=== PATIENT | male | born 1945 | race Caucasian/White ===

== ENCOUNTER 2023-03-10 11:10 | Inpatient (IN) | payer MEDICARE, SELFPAY ==
[2023-03-10] VITALS (11 sets, daily range): BP systolic 110–168; BP diastolic 53–98; PULSE 60–105; RESP 18–32; TEMP 35.9–37.8; O2SAT 92–96; BMI 36.4; BMI 35.5
--- NOTE | 2023-03-10 11:30 | ED.RN ---
PT AND BROTHER ARE VERY POOR HISTORIANS, UNABLE TO STATES PT'S PAST MEDICAL HISTORY OR MEDICATIONS.
--- NOTE | 2023-03-10 11:32 | EKG12_ITS ---
Test Reason : SOB Blood Pressure : / mmHG Vent. Rate : 094 BPM Atrial Rate : 000 BPM P-R Int : 000 ms QRS Dur : 160 ms QT Int : 408 ms P-R-T Axes : 000 -85 060 degrees QTc Int : 510 ms Atrial fibrillation with premature ventricular or aberrantly conducted complexes Left axis deviation Right bundle branch block Left ventricular hypertrophy with repolarization abnormality ( R in aVL ) Inferior infarct , age undetermined Anterolateral infarct , age undetermined Abnormal ECG Confirmed by EDWARD GENTILE, GORDON ([id number]), editor school photograph LUIS ENRIQUE RIVERA ([id number]) on 03/18/2023 9:22:20 AM Referred By: MAGDALENA Confirmed By:GORDON LEON MD
--- NOTE | 2023-03-10 11:33 | ED.VIS.DYS ---
HPI History of Present Illness Chief Complaint: Shortness of Breath Informant: patient Narrative Narrative: Patient is a very poor historian who presents by EMS because he woke up short of breath this morning. Denies any chest discomfort. Chronic edema in his legs is no different. States he lives with his brother who is not physically present right now to help with history. He states his brother helps to care for him. States he has had a bit of a cough lately that is occasionally productive of clear or white sputum but not in large amounts and no hemoptysis. Denies any fevers or chills. He is tired. He can tell me none of his medications and nothing about his medical history except that he has some type of cardiac history without needing a pacemaker, and he has no idea who his doctor is or who or where his movers is. Patient states he continues to be an active smoker. Not on any home oxygen; EMS reported to the staff that his oxygenation was 90% on room air so they placed him on 6 L en route. According to nursing, the brother was here initially and then promptly left, saying I have Rehana stuff to do . Nurses did attempt to extract some basic medical history from the brother, and the brother did not know the answers to any of her questions, including which doctors the patient sees. PFSH PFSH Medical History HTN (hypertension) Allergy/AdvReac Type Severity Reaction Status Date / Time No Known Allergies Allergy Verified 03/10/23 11:14 Surgical History Hx of CABG Social History Smoking Status: Current every day smoker tobacco type: cigarettes ROS ROS ED Review of Systems ROS Unobtainable: due to mental status Constitutional Constitutional ED: Reports fatigue Cardiovascular Cardiovascular: Reports leg edema; Denies chest pain or palpitations Respiratory/Chest Respiratory/Chest: Reports cough and dyspnea Gastrointestinal Gastrointestinal: Denies abdominal pain, diarrhea, nausea or vomiting Musculoskeletal Musculoskeletal: Denies back pain or neck pain Neurologic Neurologic: Denies headache(s) EXAM Physical Exam Const Vital Signs: 03/10/23 11:11 03/10/23 11:30 03/10/23 11:34 Temperature 98.4 F Temperature Source Temporal Pulse Rate 103 H Respiratory Rate 30 H Respiratory Effort Short of Breath Respiratory Depth Normal Respiratory Pattern Blood Pressure 165/57 H Blood Pressure Mean 93 Pulse Ox 94 95 Oxygen Delivery Method Room Air Room Air Room Air 03/10/23 11:52 03/10/23 12:17 03/10/23 13:07 Temperature Temperature Source Pulse Rate 105 H 98 97 Respiratory Rate 32 H 27 H 25 H Respiratory Effort Respiratory Depth Respiratory Pattern Tachypnea Blood Pressure 168/97 H Blood Pressure Mean 120 Pulse Ox 93 94 Oxygen Delivery Method Room Air Room Air Positive well nourished, well developed and obese General Appearance ED: well developed and NAD Nutritional Appearance: obese HEENT Reports moist mucous membranes normocephalic and atraumatic Eyes PERRL and EOMs intact bilaterally Neck full ROM and supple Neck Narrative: Probable positive JVD Limited exam due to obesity Resp Resp Narrative: Tachypneic, not in respiratory distress. Bibasilar rhonchi and diffuse expiratory wheezes. Equal breath sounds bilaterally. Cardio Cardio Narrative: Mildly tachycardic Rhythm: abnormal rhythm irregularly irregular GI non-tender and non-distended Auscultation: normoactive bowel sounds Palpation: soft Back/Spine no CVA tenderness General Back: other FROM Extremity normal to inspection General Extremety ED: Yes edema; Negative for pulses abnormal or tenderness General Extremity: edema bilateral lower extremity Details: severe (Appears chronic with scaling thickened dark discolored skin consistent with chronic stasis dermatitis bilaterally and symmetrically); Negative for pulses abnormal Neuro oriented x3, CN's II-XII intact bilaterally and no sensory deficits noted Neuro Narrative: Lethargic. Alerts easy to voice. Follows commands. [place] Coma Scale: document GCS findings To Voice Obeys Commands Oriented 14 Sensorium / Orientation: awake and alert Motor Exam: strength 5/5 throughout Skin no rashes or lesions noted and no wounds MDM MDM MDM Narrative Medical decision making narrative: There are no old records or information on this patient in the EMR at all. Clinically he appears to be in acute CHF, his elevated pressures consistent with this at 165/57. He was hypoxic for EMS, but holding his own on room air here although the nurses have him on 2 L nasal cannula which she states is helping. Empirically ordered DuoNeb and Lasix 40 mg IV while working him up. This includes the possibility of infectious etiology so COVID/influenza sent and a chest x-ray obtained, 1 view stat. That x-ray on my interpretation appears to show cardiomegaly and cephalization consistent with pulmonary edema/CHF. Given his lethargy, I obtained an ABG to assess for hypercarbia, but his pCO2 is 42, and his pH is 7.43, both within normal limits. Other labs are noted and consistent with congestive heart failure. His troponin is elevated without an acute injury on EKG but we do not have an old one to compare with. Plan will be for admission. He has no chest discomfort and oxygenating well at rest. Lab Data Attestation: I reviewed the patient's lab results. Labs: Laboratory Results - last 24 hr 03/10/23 11:23 WBC 7.6 RBC 5.52 Hgb 16.7 H Hct 50.1 MCV 90.8 MCH 30.3 MCHC 33.3 RDW Std Deviation 49.1 H RDW Coeff of Maria Victoria 14.6 Plt Count 137 L MPV 9.7 Immature Gran % (Auto) 0.300 Neut % (Auto) 74.7 H Lymph % (Auto) 10.9 L [place] % (Auto) 13.4 H Eos % (Auto) 0.0 Baso % (Auto) 0.7 Absolute Neuts (auto) 5.7 Absolute Lymphs (auto) 0.83 Nucleated RBC % 0 Sodium 139 Potassium 3.5 Chloride 103 Carbon Dioxide 32.0 Anion Gap 4 L BUN 18 Creatinine 1.30 Estim Creat Clear Calc 54.63 Est GFR (MDRD) Af Amer 69 Est GFR (MDRD) Non-Af 57 L BUN/Creatinine Ratio 13.8 Glucose 163 H Calcium 9.4 Troponin I High Sens 273 H* B-Natriuretic Peptide 438.4 H ABG Data ABG results: ABG 03/10/23 11:59 Specimen Type ART Sample Site L Radial pH 7.43 Bicarbonate Actual 27.8 H Total CO2 29 Base Excess 4 H O2 Saturation 92 L O2 % 21.0 ABG pCO2 41.7 ABG pO2 63 L Andres Test Positive O2 Delivery Device Not entered Vent Mode Not entered Radiography Diagnostic Testing: Clinical Impression(s) from Imaging Studies Chest X-Ray 03/10/23 11:53 IMPRESSION: Findings suggest a likely combination of pulmonary vascular congestion and bronchitis. No organized infiltrate or effusion. Follow-up recommended to ensure resolution Remote CABG Electronically Signed: Otoniel Osei MD at 12:10 EST , Rhythm Strip Rhythm Strip: A-fib Rate: 103 Ectopy: None EKG Initial EKG: Attestation: I personally reviewed and interpreted this EKG as follows: Interpretation: No Acute Injury Pattern, Atrial Fibrillation, RBBB and Non-Specific ST Changes Comments: LVH Prior EKG tracings: not available for review Prior: No Prior Management Discussion w/another healthcare provider: Hospitalist and Key Account Director (Dr. Clark -agrees with admit to the PCU and advises heparin gtt) Discharge Plan Dx/Rx/DC Orders Clinical Impression: Acute decompensated heart failure, Elevated troponin Disposition Disposition: Acute Care Hospital [facility]
[2023-03-10 11:41] LABS: Absolute Lymphocyte Count 0.83 X10^3/uL (0.83-4.51); Absolute Neutrophil Count 5.7 X10^3/uL (2.0-7.7); Basophil# 0.05 X10^3/uL; Basophil% 0.7 % (0-1); Hematocrit 50.1 % (40-54); Hemoglobin 16.7 g/dL (13.0-16.5); Lymphocyte # 0.83 X10^3/ul (0.83-4.51); Lymphocyte % 10.9 % (19-41); Mean Corp Hgb Conc 33.3 g/dL (32-36); Mean Corpuscular Hgb 30.3 pg (27.0-32.0); Mean Corpuscular Volume 90.8 fL (80-94); Mean Platelet Vol. 9.7 fl (6.2-12.0); Monocyte# 1.02 X10^3/uL; Monocyte% 13.4 % (0-10); NRBC Flagged by Analyzer 0 % (0-5); Neutrophil # 5.72 X10^3/uL (2.7-7.7); Neutrophil % 74.7 % (47-70); Platelet Count 137 K/mm3 (150-450); RBC Distribution Width CV 14.6 % (11.6-14.6); RBC Distribution Width SD 49.1 fl (35.1-43.9); Red Blood Count 5.52 M/mm3 (4.6-6.2); White Blood Count 7.6 K/mm3 (4.4-11.0)
[2023-03-10] MEDS: Ipratropium/Albuterol Sulfate 3 ML AMPUL.NEB INHALATION (11:50)
--- NOTE | 2023-03-10 11:53 | RAD_ITS ---
STUDY: X-RAY CHEST REASON FOR EXAM: Male, 77 years old. Fever and cough TECHNIQUE: Single AP portable view of the chest. COMPARISON: None. FINDINGS: EKG leads overlie the chest Lungs are with superimposed interstitial edema and perihilar thickening suggesting a combination of bronchitis and pulmonary vascular congestion. A diffuse inflammatory process can also cause a similar appearance. There is no demonstrated effusion. Sternal cerclage wires and vascular clips are present from a prior sternotomy and coronary artery bypass graft procedure (CABG). Normal mediastinum and shaun. Normal visualized pulmonary arteries. Normal visualized aortic arch and descending thoracic aorta. Normal visualized thoracic spine. Normal visualized ribs, clavicles, and shoulders. There is no demonstrated abnormality of the visualized soft tissue structures of the upper abdomen. RAD/Chest 1 View (Portable) IMPRESSION: Findings suggest a likely combination of pulmonary vascular congestion and bronchitis. No organized infiltrate or effusion. Follow-up recommended to ensure resolution Remote CABG Electronically Signed: Otoniel Osei MD at 12:10 EST ,
[2023-03-10 12:03] LABS: Allen Test Positive; Base Excess 4 mmol/L (-2 to +2); Bicarbonate 27.8 mmol/L (22-26); Blood Gas Specimen Type ART; Mode Not entered; O2 Delivery Device Not entered; PO2 63 mmHG (75-100); SITE L Radial; SO2 92 % (95-99); Total Carbon Dioxide 29 mmol/L; pCO2 41.7 mmHg (35-45); pH 7.43 (7.35-7.45)
[2023-03-10] MEDS: Furosemide 40 MG/4 ML Vial IV (12:04)
[2023-03-10 12:48] LABS: BUN 18 mg/dL (7-18); BUN/Creat Ratio 13.8 RATIO (10-20); Calcium,Total 9.4 mg/dL (8.5-10.1); Estimated Creatinine Clearance 54.63 ml/min; Glucose 163 mg/dL (74-106)
[2023-03-10 12:49] LABS: Anion Gap 4 (5-15); Chloride 103 mmol/L (98-107); Potassium 3.5 mmol/L (3.5-5.1); Sodium Level 139 mmol/L (136-145)
[2023-03-10 13:09] LABS: BNP,B-Type NATRIURETIC PEPTIDE 438.4 pg/mL (0-100); EST Glomerular Filtration Rate 57 mL/min (>60); Est Glom Filt Rate - Afr Amer 69 mL/min (>60); Troponin-I HS 273 pg/mL (3.0-78.0)
--- NOTE | 2023-03-10 13:10 | NURSING ---
DR OLMEDO FOR DR NICHOLS
--- NOTE | 2023-03-10 13:24 | NURSING ---
PCU [facility] ACUTE CHF, ELEVATED TROP
[2023-03-10] MEDS: Heparin Injection (Vial) 5,000 UNIT/ML VIAL 4000 UNIT IV (13:43)
[2023-03-10 13:45] LABS: International Normalized Ratio 1.1; Prothrombin Time (Protime)PT. 14.6 SECONDS (11.7-14.9)
[2023-03-10 13:46] LABS: Partial Thromboplast Time 33.4 Seconds (24.1-36.2)
[2023-03-10] MEDS: HEPARIN/D5w 25,000 UNITS 25,000 UNITS/250 ML IV.SOLN. 10 UNITS CONT INF (13:46)
--- NOTE | 2023-03-10 13:53 | ED.RN ---
ATTEMPTED TO CALL SON KADY RIVER, NO ANSWER BUT DID LEAVE MESSAGE. UNABLE TO LOCATE PT'S BROTHER'S PHONE NUMBER AT THIS TIME.
--- NOTE | 2023-03-10 14:01 | ED.RN ---
PT'S BROTHER MILLER AT BEDSIDE AND UPDATED ABOUT ADMISSION OF PT
--- NOTE | 2023-03-10 14:36 | ECHOCS_ITS ---
Reason For Study: NSTEMI Procedure This was a 2D Doppler, Color Flow transthoracic echocardiogram. Technically difficult study due to patients body habitus and SOB. Patient scanned sitting upright. Contrast injection was performed. Exam performed portable in patient room. Left Ventricle Normal LV size. Moderate eccentric left ventricular hypertrophy. The estimated ejection fraction is 55 %. Unable to assess diastolic dysfunction due to arrhythmia. Right Ventricle Normal RV size. Normal systolic function. Atria There is mild biatrial dilatation. Mitral Valve Mild mitral annular calcification. Trivial mitral valve insufficiency. Tricuspid Valve Normal tricuspid valve. Unable to estimate RV systolic pressure due to insufficient tricuspid regurgitant envelope. Aortic Valve Trisinus/trileaflet aortic valve. Mild focal aortic valve calcification. Aortic sclerosis, no stenosis. Trivial aortic valve insufficiency. Pulmonic Valve Normal pulmonic valve. Great Vessels Normal aortic root. Pericardium/Pleural Epicardial fat. No pericardial effusion. Medication Diluted definity 3.5ml given slow IV push to enhance endocardial definition. MMode/2D Measurements & Calculations LVIDd: 5.7 cm IVSd: 1.6 cm Ao root diam: 3.0 cm LVIDs: 3.9 cm LVPWd: 0.99 cm LA dimension: 4.6 cm FS: 32.0 % LAV(MOD-bp): 79.1 ml LA A4 area: 23.5 cm2 RA A4 area: 20.7 cm2 LAV(MOD-bp) Indexed: 32.1 ml/m2 LAV(MOD-sp2): 88.6 ml LAV(MOD-sp4): 72.2 ml Doppler Measurements & Calculations MV E max hua: 94.4 cm/sec MV V2 max: 93.4 cm/sec Ao V2 max: 105.6 cm/sec MV max P.5 mmHg Ao max P.5 mmHg MV V2 mean: 54.4 cm/sec MV mean P.4 mmHg MV V2 VTI: 23.3 cm LV V1 max: 78.7 cm/sec PA V2 max: 104.2 cm/sec LV V1 max P.5 mmHg PA V2 mean: 71.5 cm/sec ECHO/Echo Complete W/ Contrast Interpretation Summary The estimated ejection fraction is 55 %. Unable to assess diastolic dysfunction due to arrhythmia. There is mild biatrial dilatation. Mild mitral annular calcification. No previous echo for comparison. Contrast echo was used/Definity The study was technically difficult. Contrast injection was performed. Ordering Physician: Jak Bruce Performed By: Abdullahi Moody RCS
[2023-03-10] MEDS: Lisinopril 5 MG Tablet PO (15:26)
[2023-03-10 15:48] LABS: Troponin-I HS 454 pg/mL (3.0-78.0)
--- NOTE | 2023-03-10 15:55 | HP.PCM.HOS_ITS ---
HPI - General General Date of Admission: 03/10/23 HPI Narrative KADY PENNY, is a 77 M who presents to the hospital with shortness of breath. He is not a great historian and does not communicate very well and his brother left. He denies any chest pain but states that he had a CABG a few years ago. He been having an occasional cough but no fevers or chills EMS brought him in and stated that he was 90% on room air so he has not been hypoxic. Initial troponin was 273 and now climbed to 454 on repeat. BNP was elevated to 438 however we do not have any previous medical records in her chart. ED physician did consult cardiology, started him on a heparin drip and gave him a dose of Lasix. [facility] Medical History HTN (hypertension) Allergy/AdvReac Type Severity Reaction Status Date / Time No Known Allergies Allergy Verified 03/10/23 11:14 Family History (Updated 03/10/23 @ 14:59 by Adali Pham) Mother CAD (coronary artery disease) Father CAD (coronary artery disease) Surgical History Hx of CABG Social History (Updated 03/10/23 @ 14:59 by Adali Pham) household members: family Smoking Status: Current every day smoker tobacco type: cigarettes ROS Constitutional Constitutional: Denies chills, fatigue, fever(s) or malaise Eyes Eyes: Denies blurry vision ENT HEENT: Denies headache(s) or nasal discharge Cardiovascular Cardiovascular: Denies chest pain, dyspnea on exertion or syncope Respiratory/Chest Respiratory/Chest: Reports cough and shortness of breath at rest; Denies shortness of breath with exertion Gastrointestinal Gastrointestinal: Denies constipation, diarrhea, nausea or vomiting Genitourinary Genitourinary: Denies dysuria Neurologic Neurologic: Denies focal weakness, numbness or tremor(s) Psychiatric Psychiatric: Denies anxiety or depression Vital Signs Vital Signs Vital Signs: 03/10/23 11:11 03/10/23 11:30 03/10/23 11:34 Temperature 98.4 F Temperature Source Temporal Pulse Rate 103 H Respiratory Rate 30 H Respiratory Effort Short of Breath Respiratory Depth Normal Respiratory Pattern Blood Pressure 165/57 H Blood Pressure Mean 93 Blood Pressure Source Blood Pressure Position Blood Pressure Location Pulse Ox 94 95 Oxygen Delivery Method Room Air Room Air Room Air 03/10/23 11:52 03/10/23 12:17 03/10/23 13:07 Temperature Temperature Source Pulse Rate 105 H 98 97 Respiratory Rate 32 H 27 H 25 H Respiratory Effort Respiratory Depth Respiratory Pattern Tachypnea Blood Pressure 168/97 H Blood Pressure Mean 120 Blood Pressure Source Blood Pressure Position Blood Pressure Location Pulse Ox 93 94 Oxygen Delivery Method Room Air Room Air 03/10/23 13:49 03/10/23 14:01 03/10/23 15:00 Temperature 96.7 F L 100.0 F H Temperature Source Temporal Pulse Rate 88 100 60 Respiratory Rate 18 28 H 18 Respiratory Effort Respiratory Depth Respiratory Pattern Blood Pressure 124/53 H 115/98 H Blood Pressure Mean 76 103 Blood Pressure Source Monitor Blood Pressure Position Semi-Fowlers Blood Pressure Location Right Arm Pulse Ox 94 95 92 Oxygen Delivery Method Room Air Room Air 03/10/23 15:06 Temperature Temperature Source Pulse Rate Respiratory Rate Respiratory Effort Normal Non-Labored Respiratory Depth Normal Respiratory Pattern Normal Blood Pressure Blood Pressure Mean Blood Pressure Source Blood Pressure Position Blood Pressure Location Pulse Ox Oxygen Delivery Method Room Air Weight Weight: 269 lb 6.478 oz Body Mass Index (BMI) 35.5 Physical Exam Narrative General: Alert, Oriented x3, Cooperative, No apparent distress HEENT: Atraumatic, PERRLA, EOMI, Normocephalic Oral: Dry mucosa Neck: Supple, No JVD Lungs: Diminished, Normal air movement, No rhonchi, No wheeze, No rales Cardiovascular: Regular rate, Regular Rhythm, Normal S1, Normal S2, No murmurs Abdomen: Soft, Non Tender, Non-Distended, No Hepato-splenomegaly Extremities: Edema, Capillary Refill Less than 3 Seconds Skin: No rashes, No breakdown, chronic venous stasis changes Musculoskeletal: No Tenderness to Palpation of Joints or Extremities Neurological: Moves all extremities, no focal deficits, motor Exam 5/5 strength throughout, Sensory exam intact to light touch and pain Psych/Mental Status: Flat Results Lab / Micro Data 03/10/23 11:23 03/10/23 11:23 Labs: Laboratory Results - last 24 hr 03/10/23 11:23: WBC 7.6, RBC 5.52, Hgb 16.7 H, Hct 50.1, MCV 90.8, MCH 30.3, MCHC 33.3, RDW Std Deviation 49.1 H, RDW Coeff of Maria Victoria 14.6, Plt Count 137 L, MPV 9.7, Immature Gran % (Auto) 0.300, Neut % (Auto) 74.7 H, Lymph % (Auto) 10.9 L, [place] % (Auto) 13.4 H, Eos % (Auto) 0.0, Baso % (Auto) 0.7, Absolute Neuts (auto) 5.7, Absolute Lymphs (auto) 0.83, Nucleated RBC % 0, PT 14.6, INR 1.1, APTT 33.4, Sodium 139, Potassium 3.5, Chloride 103, Carbon Dioxide 32.0, Anion Gap 4 L, BUN 18, Creatinine 1.30, Estim Creat Clear Calc 54.63, Est GFR (MDRD) Af Amer 69, Est GFR (MDRD) Non-Af 57 L, BUN/Creatinine Ratio 13.8, Glucose 163 H, Calcium 9.4, Troponin I High Sens 273 H*, B-Natriuretic Peptide 438.4 H 03/10/23 15:01: Troponin I High Sens 454 H* Micro: Microbiology 03/10/23 11:39 Nasal Secretion SARS-CoV-2 & FLU Antigen (Rapid) - Final ABG Data ABG results: ABG 03/10/23 11:59 Specimen Type ART Sample Site L Radial pH 7.43 Bicarbonate Actual 27.8 H Total CO2 29 Base Excess 4 H O2 Saturation 92 L O2 % 21.0 ABG pCO2 41.7 ABG pO2 63 L Andres Test Positive O2 Delivery Device Not entered Vent Mode Not entered Rhythm Strip Rhythm Strip: A-fib Rate: 103 Ectopy: None Imagaing Radiology Impression Chest X-Ray 03/10/23 11:53 IMPRESSION: Findings suggest a likely combination of pulmonary vascular congestion and bronchitis. No organized infiltrate or effusion. Follow-up recommended to ensure resolution Remote CABG Electronically Signed: Otoniel Osei MD at 12:10 EST , Assessment & Plan Assessment/Plan (1) Non-STEMI (non-ST elevated myocardial infarction): PLAN: Plan 1. Non-STEMI/CAD status post CABG ? Unclear as to his medical history as he does not provide much history and he is never been seen here before ? Will consult cardiology ? Echo in the morning with possibility for heart cath as his troponin has doubled since admission ? Continue with the heparin drip ? Continue with Coreg and lisinopril ? Will start him on Lipitor ? Will make him n.p.o. at midnight DVT: Heparin drip 76 minutes was spent on direct patient care, including documentation as well as chart review and collaboration with colleagues Charges/Coding Visit Charges Inpatient E&M: 11740 Init Hosp L3
--- NOTE | 2023-03-10 16:53 | PCM.CONS.C ---
Assessment & Plan Assessment/Plan (1) Coronary artery disease involving coronary bypass graft: (2) Elevated troponin: (3) Acute decompensated heart failure: (4) Non-STEMI (non-ST elevated myocardial infarction): PLAN: Plan 77-year-old patient, admitted through the ER/[facility] Very poor historian presented by EMS as he woke up this morning, complaining ofof shortness of breath . He does not have any active chest pain. Also noted patient has chronic lower extremity edema. Based on the history patient mentioned that he lives with his brother. Further review of the history patient had CAD with CABG in [place] 1988. Cardiac care plan recommendations; I reviewed all his current evaluation here in the hospital including the EKG which is abnormal With evidence of A-fib and rapid branch block and PVCs. In addition to nonspecific ST-T change abnormalities The cardiac biomarker showed elevated high sensitive troponins As well as the BMP Clinical impression patient with CAD status post CABG and now presenting with shortness of breath With a clinical evidence of non-ST elevation CO Will continue medical treatment with beta-blanca heparin, lisinopril statin atorvastatin Will add low-dose aspirin Also will review the record from [place] in regards to the CABG and his cardiac history Echocardiogram to evaluate his LV function Will discuss further plan with possible cardiac catheterization based on his clinical progression and the result of cardiac testing Does not have any active chest pain Will follow-up clinically. Jose Alberto Clark MD,[facility] HPI Consult Data Date of Consult: 03/10/23 HPI Narrative Reason for Consultation: CAD s/p CABG/non-STEMI HPI Narrative: KADY PENNY, is a 77 M who presents [facility] Medical History HTN (hypertension) Allergy/AdvReac Type Severity Reaction Status Date / Time No Known Allergies Allergy Verified 03/10/23 11:14 Family History (Updated 03/10/23 @ 14:59 by Adali Pham) Mother CAD (coronary artery disease) Father CAD (coronary artery disease) Surgical History Hx of CABG Social History (Updated 03/10/23 @ 14:59 by Adali Pham) household members: family Smoking Status: Current every day smoker tobacco type: cigarettes Physical Exam Cardio Cardio Narrative: Patient seen and evaluated at bedside in PCU And discussed with the nursing staff Very poor historian Does not have any active chest pain at time of evaluation Underlying cardiac rhythm is A-fib/with PVCs/right bundle branch block Cardiac examination; With sternotomy scar noted S1-S2 is irregular No systolic or diastolic murmur Examination Mild bilateral basal rales. Risk Stratification Risk Stratification Applicable: Yes Age >/= 65: Yes >/= 3 CAD Risk Factors (HTN, HLD, DM, family hx of CAD, or current smoker): Yes Aspirin Use in the Past 7 Days: No Severe Angina (>/= episodes in 24 hours): No EKG ST Changes >/= 0.5mm: No Positive Cardiac Marker: Yes ROSCOE Risk Stratification Score: 3 ROSCOE % Risk: 13% Risk Objective Data Vital Signs: Vital Signs Temp Pulse Resp BP Pulse Ox O2 Del Method 100.0 F H 60 18 115/98 H 92 Room Air 03/10/23 15:00 03/10/23 15:00 03/10/23 15:00 03/10/23 15:00 03/10/23 15:00 03/10/23 15:06 Oxygen Delivery Method Room Air Weight: 269 lb 6.478 oz Body Mass Index (BMI) 35.5 Intake & Output: Intake and Output for Last 24 Hours 03/08/23 03/09/23 03/10/23 23:59 23:59 23:59 Output Total 350 / 350 Balance -350 / -350 Lab / Micro Data 03/10/23 11:23 03/10/23 11:23 Labs: Laboratory Results - last 24 hr 03/10/23 11:23: WBC 7.6, RBC 5.52, Hgb 16.7 H, Hct 50.1, MCV 90.8, MCH 30.3, MCHC 33.3, RDW Std Deviation 49.1 H, RDW Coeff of Maria Victoria 14.6, Plt Count 137 L, MPV 9.7, Immature Gran % (Auto) 0.300, Neut % (Auto) 74.7 H, Lymph % (Auto) 10.9 L, [place] % (Auto) 13.4 H, Eos % (Auto) 0.0, Baso % (Auto) 0.7, Absolute Neuts (auto) 5.7, Absolute Lymphs (auto) 0.83, Nucleated RBC % 0, PT 14.6, INR 1.1, APTT 33.4, Sodium 139, Potassium 3.5, Chloride 103, Carbon Dioxide 32.0, Anion Gap 4 L, BUN 18, Creatinine 1.30, Estim Creat Clear Calc 54.63, Est GFR (MDRD) Af Amer 69, Est GFR (MDRD) Non-Af 57 L, BUN/Creatinine Ratio 13.8, Glucose 163 H, Calcium 9.4, Troponin I High Sens 273 H*, B-Natriuretic Peptide 438.4 H 03/10/23 15:01: Troponin I High Sens 454 H* Micro: Microbiology 03/10/23 11:39 Nasal Secretion SARS-CoV-2 & FLU Antigen (Rapid) - Final ABG Data ABG results: ABG 03/10/23 11:59 Specimen Type ART Sample Site L Radial pH 7.43 Bicarbonate Actual 27.8 H Total CO2 29 Base Excess 4 H O2 Saturation 92 L O2 % 21.0 ABG pCO2 41.7 ABG pO2 63 L Andres Test Positive O2 Delivery Device Not entered Vent Mode Not entered Rhythm Strip Rhythm Strip: A-fib Rate: 103 Ectopy: None Cardiology Labs/Tests 03/10/23 11:23: WBC 7.6, RBC 5.52, Hgb 16.7 H, Hct 50.1, MCV 90.8, MCH 30.3, MCHC 33.3, Plt Count 137 L, MPV 9.7, Immature Gran % (Auto) 0.300, Neut % (Auto) 74.7 H, Lymph % (Auto) 10.9 L, [place] % (Auto) 13.4 H, Eos % (Auto) 0.0, Baso % (Auto) 0.7, Absolute Neuts (auto) 5.7, Nucleated RBC % 0, PT 14.6, INR 1.1, APTT 33.4, Sodium 139, Potassium 3.5, Chloride 103, Carbon Dioxide 32.0, Anion Gap 4 L, BUN 18, Creatinine 1.30, Est GFR (MDRD) Af Amer 69, Est GFR (MDRD) Non-Af 57 L, BUN/Creatinine Ratio 13.8, Glucose 163 H, Calcium 9.4, B-Natriuretic Peptide 438.4 H 03/10/23 11:59: pH 7.43, Bicarbonate Actual 27.8 H, Base Excess 4 H, O2 Saturation 92 L, ABG pCO2 41.7, ABG pO2 63 L, Andres Test Positive Rhythm: EKG: ECHO: Stress Test: Cardiac Cath: PCI: CT Surgery: Holter monitor: EPS: PPM: CXR: Chest CT Scan: Radiography Diagnostic Testing: Radiology Impression Chest X-Ray 03/10/23 11:53 IMPRESSION: Findings suggest a likely combination of pulmonary vascular congestion and bronchitis. No organized infiltrate or effusion. Follow-up recommended to ensure resolution Remote CABG Electronically Signed: Otoniel Osei MD at 12:10 EST ,
[2023-03-10 17:57] LABS: Troponin-I HS 546 pg/mL (3.0-78.0)
[2023-03-10 18:35] LABS: Magnesium 2.1 mg/dL (1.6-2.6)
[2023-03-10 19:47] LABS: Partial Thromboplast Time 69.3 Seconds (24.1-36.2)
[2023-03-10] MEDS: Carvedilol 3.125 MG TABLET PO (21:55)
[2023-03-10] MEDS: Atorvastatin Calcium 40 MG Tablet PO (21:56)
[2023-03-11 02:14] VITALS: BP 118/95; PULSE 95; RESP 18; TEMP 37.2; O2SAT 95
[2023-03-11 02:21] VITALS: BMI 35.6
[2023-03-11 03:19] LABS: Absolute Lymphocyte Count 1.89 X10^3/uL (0.83-4.51); Absolute Neutrophil Count 3.6 X10^3/uL (2.0-7.7); Basophil# 0.04 X10^3/uL; Basophil% 0.6 % (0-1); Eosinophil# 0.13 X10^3/uL; Eosinophils% 1.9 % (0-5); Hematocrit 53.5 % (40-54); Hemoglobin 17.4 g/dL (13.0-16.5); Lymphocyte # 1.89 X10^3/ul (0.83-4.51); Lymphocyte % 27.1 % (19-41); Mean Corp Hgb Conc 32.5 g/dL (32-36); Mean Corpuscular Hgb 29.4 pg (27.0-32.0); Mean Corpuscular Volume 90.4 fL (80-94); Mean Platelet Vol. 9.9 fl (6.2-12.0); Monocyte# 1.29 X10^3/uL; Monocyte% 18.5 % (0-10); NRBC Flagged by Analyzer 0 % (0-5); Neutrophil % 51.6 % (47-70); Platelet Count 123 K/mm3 (150-450); RBC Distribution Width CV 14.8 % (11.6-14.6); RBC Distribution Width SD 49.1 fl (35.1-43.9); Red Blood Count 5.92 M/mm3 (4.6-6.2)
[2023-03-11 03:28] LABS: Partial Thromboplast Time 68.2 Seconds (24.1-36.2)
[2023-03-11 03:32] LABS: Anion Gap 6 (5-15); BUN 18 mg/dL (7-18); BUN/Creat Ratio 15.5 RATIO (10-20); Calcium,Total 8.2 mg/dL (8.5-10.1); Chloride 105 mmol/L (98-107); Creatinine, Serum 1.16 mg/dL (0.70-1.30); EST Glomerular Filtration Rate 65 mL/min (>60); Est Glom Filt Rate - Afr Amer 79 mL/min (>60); Estimated Creatinine Clearance 61.23 ml/min; Glucose 103 mg/dL (74-106); Potassium 3.5 mmol/L (3.5-5.1); Sodium Level 141 mmol/L (136-145)
[2023-03-11 04:22] VITALS: RESP 32; O2SAT 87
[2023-03-11 04:23] VITALS: O2SAT 93
--- NOTE | 2023-03-11 04:42 | RAD_ITS ---
EXAM: XR CHEST, 1 VIEW CLINICAL INDICATION: increased oxygen demand, tachypnea increased oxygen demand, tachypnea TECHNIQUE: Frontal view of the chest. COMPARISON: No relevant prior studies available. FINDINGS: LUNGS AND PLEURAL SPACES: There is increased interstitial prominence bilaterally, suspicious for CHF, but possibly representing an inflammatory or atypical infectious process There is no demonstrated focal pulmonary consolidation. No pneumothorax. No effusion. HEART: The heart is borderline in size. MEDIASTINUM: Central airways and mediastinal contour are unremarkable. BONES/JOINTS: There are sternotomy wires. There are multilevel degenerative changes in the visualized spine. No acute fracture. SOFT TISSUES: Unremarkable. RAD/Chest 1 View IMPRESSION: Persistent interstitial prominence bilaterally, probably representing CHF. Inflammatory or atypical infectious process is not excluded. No significant change from yesterday''s study. Electronically Signed: Monico Ramos MD at 6:26 EST Reading Location ID and State: [facility] / [place] , Service support ,
[2023-03-11 08:46] VITALS: BP 154/86; PULSE 68; RESP 18; TEMP 37.2; O2SAT 93
[2023-03-11] MEDS: Lisinopril 5 MG Tablet PO (08:53)
[2023-03-11] MEDS: Carvedilol 3.125 MG TABLET PO (08:53)
--- NOTE | 2023-03-11 09:12 | PN.CARD_ITS ---
Documented by User: Adali GUTIERREZ, MATT 03/11/23 10:52 Subjective Subjective Patient seen and examined today. He denies chest pain but still admits to being short of breath. Objective Data Vital Signs: Vital Signs Temp Pulse Resp BP Pulse Ox O2 Del Method O2 Flow Rate 98.9 F 68 18 154/86 H 93 Nasal Cannula 5 03/11/23 08:46 03/11/23 08:46 03/11/23 08:46 03/11/23 08:46 03/11/23 08:46 03/11/23 08:46 03/11/23 08:46 Oxygen Flow Rate (L/min) 5 Oxygen Delivery Method Nasal Cannula Weight: 270 lb 4.587 oz Body Mass Index (BMI) 35.6 Intake & Output: Intake and Output for Last 24 Hours 03/09/23 03/10/23 03/11/23 23:59 23:59 23:59 Intake Total 72.33 / 72.33 61.95 / 61.95 Output Total 350 / 350 Balance -277.67 / -277.67 61.95 / 61.95 Lab / Micro Data 03/11/23 03:10 03/11/23 03:10 Labs: Laboratory Results - last 24 hr 03/10/23 11:23: WBC 7.6, RBC 5.52, Hgb 16.7 H, Hct 50.1, MCV 90.8, MCH 30.3, MCH C 33.3, RDW Std Deviation 49.1 H, RDW Coeff of Maria Victoria 14.6, Plt Count 137 L, MPV 9.7, Immature Gran % (Auto) 0.300, Neut % (Auto) 74.7 H, Lymph % (Auto) 10.9 L, [place] % (Auto) 13.4 H, Eos % (Auto) 0.0, Baso % (Auto) 0.7, Absolute Neuts (auto) 5.7, Absolute Lymphs (auto) 0.83, Nucleated RBC % 0, PT 14.6, INR 1.1, APTT 33.4, Sodium 139, Potassium 3.5, Chloride 103, Carbon Dioxide 32.0, Anion Gap 4 L, BUN 18, Creatinine 1.30, Estim Creat Clear Calc 54.63, Est GFR (MDRD) Af Amer 69, Est GFR (MDRD) Non-Af 57 L, BUN/Creatinine Ratio 13.8, Glucose 163 H, Calcium 9.4, Troponin I High Sens 273 H*, B-Natriuretic Peptide 438.4 H 03/10/23 15:01: Troponin I High Sens 454 H* 03/10/23 17:30: Magnesium 2.1, Troponin I High Sens 546 H* 03/10/23 19:31: APTT 69.3 H 03/11/23 03:10: WBC 7.0, RBC 5.92, Hgb 17.4 H, Hct 53.5, MCV 90.4, MCH 29.4, MCHC 32.5, RDW Std Deviation 49.1 H, RDW Coeff of Maria Victoria 14.8 H, Plt Count 123 L, MPV 9.9, Immature Gran % (Auto) 0.300, Neut % (Auto) 51.6, Lymph % (Auto) 27.1, [place] % (Auto) 18.5 H, Eos % (Auto) 1.9, Baso % (Auto) 0.6, Absolute Neuts (auto) 3.6, Absolute Lymphs (auto) 1.89, Nucleated RBC % 0, APTT 68.2 H, Sodium 141, Potassium 3.5, Chloride 105, Carbon Dioxide 30.0, Anion Gap 6, BUN 18, Creatinine 1.16, Estim Creat Clear Calc 61.23, Est GFR (MDRD) Af Amer 79, Est GFR (MDRD) Non-Af 65, BUN/Creatinine Ratio 15.5, Glucose 103, Calcium 8.2 L Micro: Microbiology 03/10/23 11:39 Nasal Secretion SARS-CoV-2 & FLU Antigen (Rapid) - Final ABG Data ABG results: ABG 03/10/23 11:59 Specimen Type ART Sample Site L Radial pH 7.43 Bicarbonate Actual 27.8 H Total CO2 29 Base Excess 4 H O2 Saturation 92 L O2 % 21.0 ABG pCO2 41.7 ABG pO2 63 L Andres Test Positive O2 Delivery Device Not entered Vent Mode Not entered Rhythm Strip Rhythm Strip: A-fib Rate: 103 Ectopy: None Cardiology Labs/Tests 03/10/23 11:23: WBC 7.6, RBC 5.52, Hgb 16.7 H, Hct 50.1, MCV 90.8, MCH 30.3, MCHC 33.3, Plt Count 137 L, MPV 9.7, Immature Gran % (Auto) 0.300, Neut % (Auto) 74.7 H, Lymph % (Auto) 10.9 L, [place] % (Auto) 13.4 H, Eos % (Auto) 0.0, Baso % (A uto) 0.7, Absolute Neuts (auto) 5.7, Nucleated RBC % 0, PT 14.6, INR 1.1, APTT 33.4, Sodium 139, Potassium 3.5, Chloride 103, Carbon Dioxide 32.0, Anion Gap 4 L, BUN 18, Creatinine 1.30, Est GFR (MDRD) Af Amer 69, Est GFR (MDRD) Non-Af 57 L, BUN/Creatinine Ratio 13.8, Glucose 163 H, Calcium 9.4, B-Natriuretic Peptide 438.4 H 03/10/23 11:59: pH 7.43, Bicarbonate Actual 27.8 H, Base Excess 4 H, O2 Saturation 92 L, ABG pCO2 41.7, ABG pO2 63 L, Andres Test Positive 03/10/23 17:30: Magnesium 2.1 03/10/23 19:31: APTT 69.3 H 03/11/23 03:10: WBC 7.0, RBC 5.92, Hgb 17.4 H, Hct 53.5, MCV 90.4, MCH 29.4, MCHC 32.5, Plt Count 123 L, MPV 9.9, Immature Gran % (Auto) 0.300, Neut % (Auto) 51.6, Lymph % (Auto) 27.1, [place] % (Auto) 18.5 H, Eos % (Auto) 1.9, Baso % (Auto) 0.6, Absolute Neuts (auto) 3.6, Nucleated RBC % 0, APTT 68.2 H, Sodium 141, Potassium 3.5, Chloride 105, Carbon Dioxide 30.0, Anion Gap 6, BUN 18, Creatinine 1.16, Est GFR (MDRD) Af Amer 79, Est GFR (MDRD) Non-Af 65, BUN/Creatinine Ratio 15.5, Glucose 103, Calcium 8.2 L Radiography Diagnostic Testing: Radiology Impression Chest X-Ray 03/10/23 11:53 IMPRESSION: Findings suggest a likely combination of pulmonary vascular congestion and bronchitis. No organized infiltrate or effusion. Follow-up recommended to ensure resolution Remote CABG Electronically Signed: Otoniel Osei MD at 12:10 EST , Chest X-Ray 03/11/23 04:42 IMPRESSION: Persistent interstitial prominence bilaterally, probably representing CHF. Inflammatory or atypical infectious process is not excluded. No significant change from yesterday''s study. Electronically Signed: Monico Ramos MD at 6:26 EST , Physical Exam Const alert and oriented x3 HEENT normocephalic, head/scalp atraumatic, hearing grossly normal bilaterally, external ears normal, external nose normal and moist oral mucous membranes Eyes PERRL, EOMs intact bilaterally, conjunctivae normal and no scleral icterus Neck no lymphadenopathy, supple and no JVD Resp Auscultation: wheezes expiratory wheezes and diminished lung sounds bilateral Cardio regular rate, regular rhythm, S1 normal heart sound, S2 normal heart sound, no murmurs, no rub, no gallops, no clicks, no JVD and peripheral pulses 2+ throughout GI normal to inspection, nondistended, normoactive bowel sounds, soft to palpation, non-tender and non-distended Extremity normal to inspection, normal capillary refill, no clubbing, cyanosis or edema and no pedal edema Neuro oriented x3, CN's II-XII intact bilaterally, moves all extremities and no focal motor deficits Psych cooperative and affect normal Assessment & Plan Assessment/Plan (1) Coronary artery disease involving coronary bypass graft: (2) Elevated troponin: (3) Acute decompensated heart failure: (4) Non-STEMI (non-ST elevated myocardial infarction): PLAN: Plan * Echocardiogram is pending, based on this we will decide if patient needs heart catheterization. Would like for patient to start an aspirin however we will wait until after heart catheterization is done. As we will be starting him on anticoagulation for his atrial fibrillation. If he does require antiplatelets would not like for him to be on triple therapy. * Heart rate appears controlled. Will continue with his current dose of carvedilol. Will need to consider anticoagulation for his atrial fibrillation. * Blood pressure is controlled on his Coreg and lisinopril. * Patient will continue with his atorvastatin. Charges/Coding Visit Charges Inpatient E&M: 96159 Subs Hosp L2 Documented by User: Dr. Jose Alberto Clark MD 03/11/23 15:20 Subjective Subjective Patient seen and examined today along with the nursing staff He denies chest pain but still admits to being short of breath. Also I discussed with his son over the phone regarding the medical history. Lab / Micro Data 03/11/23 03:10 03/11/23 03:10 Physical Exam Cardio Cardio Narrative: Review of the cardiac monitor technician showed A-fib controlled ventricular rate frequent PVCs Previous review showed evidence of nonsustained ventricular tachycardia Patient has been stable hemodynamically No active chest pain reported Cardiovascular exam S1-S2 is regular Chest exam mildly diminished air entry bilateral Examination lower extremities showed chronic lower extremity edema. Assessment & Plan Assessment/Plan (1) Coronary artery disease involving coronary bypass graft: (2) Elevated troponin: (3) Acute decompensated heart failure: (4) Non-STEMI (non-ST elevated myocardial infarction): PLAN: Plan * Echocardiogram is pending, based on this we will decide if patient needs heart catheterization. Would like for patient to start an aspirin however we will wait until after heart catheterization is done. As we will be starting him on anticoagulation for his atrial fibrillation. If he does require antiplatelets would not like for him to be on triple therapy. As mildly reduced platelet count. * Heart rate appears controlled. Will continue with his current dose of carvedilol. Will need to consider anticoagulation for his atrial fibrillation. * Blood pressure is controlled on his Coreg and lisinopril. * Patient will continue with his atorvastatin. Cardiac care plan recommendations; 1.Based on the history from his son he has been seen in [facility] with a prior PCI's I requested the record of a prior PCI as well as prior coronary artery bypass surgery. 2. On review of the echocardiogram LV function is preserved With no significant valve abnormality, also reviewed the prior echocardiogram which showed similar ejection fraction 3. Review of the current medication include heparin, JESUS inhibitor atorvastatin 40 mg, beta-blanca carvedilol, JESUS inhibitor lisinopril will titrate based on the blood pressure Added low-dose aspirin. 4. Will check electrolytes mag and potassium. 5. Patient repeatedly denied any symptoms of chest pain. Patient had history of COMPA and recommended to get his CPAP by his family. 6. Will keep n.p.o. plan will be to evaluate further with cardiac catheterization 7. I discussed the cardiac care plan with the family his son and with the nursing staff in PCU Will continue to monitor and follow-up clinically. History from the son he mentioned that his father has declined memory and he got lost when he was driving his car.
--- NOTE | 2023-03-11 10:16 | PN.HOSP_ITS ---
Subjective Subjective No chest pain but continues to be short of breath had to be on 5 L at night and he is supposed to wear CPAP Objective Data Objective Data Vital Signs: Vital Signs Temp Pulse Resp BP Pulse Ox O2 Del Method O2 Flow Rate 98.9 F 68 18 154/86 H 93 Nasal Cannula 5 03/11/23 08:46 03/11/23 08:46 03/11/23 08:46 03/11/23 08:46 03/11/23 08:46 03/11/23 08:46 03/11/23 08:46 Oxygen Flow Rate (L/min) 5 Oxygen Delivery Method Nasal Cannula Weight: 270 lb 4.587 oz Body Mass Index (BMI) 35.6 Intake & Output: Intake and Output for Last 24 Hours 03/10/23 03/11/23 03/12/23 03:59 03:59 03:59 Intake Total 72.33 / 72.33 61.95 / 61.95 Output Total 350 / 350 Balance -277.67 / -277.67 61.95 / 61.95 Lab / Micro Data 03/11/23 03:10 03/11/23 03:10 Labs: Laboratory Results - last 24 hr 03/10/23 11:23: WBC 7.6, RBC 5.52, Hgb 16.7 H, Hct 50.1, MCV 90.8, MCH 30.3, MCHC 33.3, RDW Std Deviation 49.1 H, RDW Coeff of Maria Victoria 14.6, Plt Count 137 L, MPV 9.7, Immature Gran % (Auto) 0.300, Neut % (Auto) 74.7 H, Lymph % (Auto) 10.9 L, [place] % (Auto) 13.4 H, Eos % (Auto) 0.0, Baso % (Auto) 0.7, Absolute Neuts (auto) 5.7, Absolute Lymphs (auto) 0.83, Nucleated RBC % 0, PT 14.6, INR 1.1, APTT 33.4, Sodium 139, Potassium 3.5, Chloride 103, Carbon Dioxide 32.0, Anion Gap 4 L, BUN 18, Creatinine 1.30, Estim Creat Clear Calc 54.63, Est GFR (MDRD) Af Amer 69, Est GFR (MDRD) Non-Af 57 L, BUN/Creatinine Ratio 13.8, Glucose 163 H, Calcium 9.4, Troponin I High Sens 273 H*, B-Natriuretic Peptide 438.4 H 03/10/23 15:01: Troponin I High Sens 454 H* 03/10/23 17:30: Magnesium 2.1, Troponin I High Sens 546 H* 03/10/23 19:31: APTT 69.3 H 03/11/23 03:10: WBC 7.0, RBC 5.92, Hgb 17.4 H, Hct 53.5, MCV 90.4, MCH 29.4, MCHC 32.5, RDW Std Deviation 49.1 H, RDW Coeff of Maria Victoria 14.8 H, Plt Count 123 L, MPV 9.9, Immature Gran % (Auto) 0.300, Neut % (Auto) 51.6, Lymph % (Auto) 27.1, [place] % (Auto) 18.5 H, Eos % (Auto) 1.9, Baso % (Auto) 0.6, Absolute Neuts (auto) 3.6, Absolute Lymphs (auto) 1.89, Nucleated RBC % 0, APTT 68.2 H, Sodium 141, Potassium 3.5, Chloride 105, Carbon Dioxide 30.0, Anion Gap 6, BUN 18, Creatinine 1.16, Estim Creat Clear Calc 61.23, Est GFR (MDRD) Af Amer 79, Est GFR (MDRD) Non-Af 65, BUN/Creatinine Ratio 15.5, Glucose 103, Calcium 8.2 L Micro: Microbiology 03/10/23 11:39 Nasal Secretion SARS-CoV-2 & FLU Antigen (Rapid) - Final ABG Data ABG results: ABG 03/10/23 11:59 Specimen Type ART Sample Site L Radial pH 7.43 Bicarbonate Actual 27.8 H Total CO2 29 Base Excess 4 H O2 Saturation 92 L O2 % 21.0 ABG pCO2 41.7 ABG pO2 63 L Andres Test Positive O2 Delivery Device Not entered Vent Mode Not entered Radiography Diagnostic Testing: Radiology Impression Chest X-Ray 03/10/23 11:53 IMPRESSION: Findings suggest a likely combination of pulmonary vascular congestion and bronchitis. No organized infiltrate or effusion. Follow-up recommended to ensure resolution Remote CABG Electronically Signed: Otoniel Osei MD at 12:10 EST , Chest X-Ray 03/11/23 04:42 IMPRESSION: Persistent interstitial prominence bilaterally, probably representing CHF. Inflammatory or atypical infectious process is not excluded. No significant change from yesterday''s study. Electronically Signed: Monico Ramos MD at 6:26 EST Reading Location ID and State: [facility] / [place] , Service support , Rhythm Strip Rhythm Strip: A-fib Rate: 103 Ectopy: None Physical Exam Narrative General: Alert, Oriented x3, Cooperative, No apparent distress HEENT: Atraumatic, PERRLA, EOMI, Normocephalic Oral: Dry mucosa Neck: Supple, No JVD Lungs: Diminished, Normal air movement, No rhonchi, No wheeze, No rales Cardiovascular: Regular rate, Regular Rhythm, Normal S1, Normal S2, No murmurs Abdomen: Soft, Non Tender, Non-Distended, No Hepato-splenomegaly Extremities: Edema, Capillary Refill Less than 3 Seconds Skin: No rashes, No breakdown, chronic venous stasis changes Musculoskeletal: No Tenderness to Palpation of Joints or Extremities Neurological: Moves all extremities, no focal deficits, motor Exam 5/5 strength throughout, Sensory exam intact to light touch and pain Psych/Mental Status: Flat Assessment & Plan Assessment/Plan (1) Non-STEMI (non-ST elevated myocardial infarction): PLAN: Plan 1. Non-STEMI/CAD status post CABG ? Unclear as to his medical history as he does not provide much history and he is never been seen here before ? Will consult cardiology ? Echo in the morning with possibility for heart cath as his troponin has more than doubled since admission ? Continue with the heparin drip ? Continue with Coreg and lisinopril ? Will start him on Lipitor ? Will make him n.p.o. at midnight 2. COMPA/morbid obesity ? BMI 35.7, discussed lifestyle modifications ? Will see if family can bring in his CPAP otherwise will have respiratory provide him with BiPAP at night with baseline settings DVT: Heparin drip Charges/Coding Visit Charges Inpatient E&M: 10683 Subs Hosp L2
[2023-03-11] MEDS: 0.9% Saline Lock 10 ML Syringe IV (10:31)
[2023-03-11 10:52] LABS: Partial Thromboplast Time 63.7 Seconds (24.1-36.2)
--- NOTE | 2023-03-11 11:44 | CASEMGMT ---
Insurance review for hospitals In-network with [facility] insurance if transfer is recommended is as follows:. [facility], [facility], [facility], [facility], [facility] ([facility]), [facility], [facility] and . Ivonne Potter, Discharge Planning Asst.
[2023-03-11 12:54] LABS: Troponin-I HS 598 pg/mL (3.0-78.0)
--- NOTE | 2023-03-11 14:57 | NURSING ---
[address] Clark in to see pt. Dr. Clark speaking with pt son
[2023-03-11 16:01] VITALS: BP 149/95; PULSE 77; RESP 18; TEMP 36.7; O2SAT 92
[2023-03-11 16:33] LABS: Partial Thromboplast Time 66.9 Seconds (24.1-36.2)
--- NOTE | 2023-03-11 16:51 | CASEMGMT ---
Social Work SW spoke w/pt in room, he may be interested in completing LW/POA while here, has not completed the documents. Pt's brother with whom he lives is in the room, pt states would want his brother as POA. Pt's brother states it should be pt's son, pt then agreed with this. SW will follow up as able in regard to pt's wishes and completing the documents. RICH Shi
--- NOTE | 2023-03-11 17:30 | CASEMGMT ---
RN?CM?TANK HOUSE SUPERVISOR?CM?to room to meet with patient for initial transition planning/care coordination?assessment.?RN?CM?introduced self and role at [facility].?Pt voices understanding and agreeable to talking w/this RN HUSSEIN, but was unable to provide much information, stating, I don't know and I don't remember to several of the questions and states that RN HUSSEIN can call his son for information. Call placed to pt's son, Sergio, at this time. Sergio states that pt has been having some memory issues and is wondering if he has Alzheimer's/dementia, although he states he does not think he has been diagnosed with this. He states he has been getting lost when driving and even got lost driving to [place] from [place] in August. He states he has told pt not to drive anymore. Care providers, pharmacy, and demographics verified/updated at this time. PCP: No PCP listed. Son states he does not know if pt is established w/a PCP in [place], as he just moved to [place] from [place] in August. He states pt was @ [facility] since coming to [place] and he is not sure if they set up a PCP appt for pt at that time. Insurance: [employer] M[employer] Prescription Benefit:?Yes Living Will/HPOA:?Son thinks pt has done a LW but he does not think he has done HCPOA. Made aware, if pt oriented and able to think clearly/make decisions that AD can be completed w/SW, if pt wishes to do so. LNOK: Pt has been 3 times. His 3rd on Father's Day of this year. Pt has a son, Sergio Diane and a dtr, Lucero Farooq (Sergio states that Lucero is not involved in pt's life). Pt's brother is Amos Diane Living Arrangements: Pt has been living @ his brother's home since moving to [place]. Pt originally told LOLITA SAVAGE that he lives in a tri-plex home w/no steps to enter and then he stated it was a 2-story home 2-3 steps to enter, and then he stated, Maybe, I don't know . Sergio states that he has not been in pt's brother's home, as pt has just always came to his home to visit, so he is not sure how the home is set-up. Sergio states that pt's brother, Amos, has been having to do all home mgnt tasks, meals, etc, and that he has reported to him that he has been needing to assist him to the bathroom as well. He states he is not sure how much Amos has been needing to assist pt w/bathing/dressing, but states pt has not been good about getting cleaned up and not taking care of himself well. Transportation: Sergio states he is not sure when pt drove last, as he has been getting lost when driving and Sergio has told him not to drive anymore. DME: ?Sergio states he was told that pt has been using a cane. He states pt also has a CPAP or BIPAP. RN, Adali, aware and has been talking w/Amos about him bringing it in. HHC/SNF: No hx. Discussed discharge planning and questions answered. Sergio states he does not wish for pt to return to his brother's home, stating, It's not fair to him to have to help my dad so much and it's not fair to my dad . He states he wishes for pt to discharge to a SNF with the plans to then either go to [place] or staying somewhere long-term. He would like him to go somewhere in [place] and states 1st preference is [facility]. HILTON Arango, made aware. Son states that he (himself) is a rolloff truck driver and is on the road a lot and states he will be gone for the remainder of the week and he can be reached via phone. Son states he plans to talk w/pt about the above plan. Pt did tell this LOLITA SAVAGE that he is agreeable to going to a SNF. PLAN:??SNF. Yannick EVANSN?RN?CM
[2023-03-11] MEDS: HEPARIN/D5w 25,000 UNITS 25,000 UNITS/250 ML IV.SOLN. 8 UNITS CONT INF (18:27)
[2023-03-11 22:01] VITALS: BP 157/72; PULSE 71; RESP 16; TEMP 36.6; O2SAT 96
[2023-03-11] MEDS: Atorvastatin Calcium 40 MG Tablet PO (22:30)
[2023-03-11] MEDS: Carvedilol 6.25 MG Tablet PO (22:31)
--- NOTE | 2023-03-11 23:25 | NURSING ---
Patient with 18 run of V-tach at 2245. Dr. Jose Alberto Clark contacted via telephone [phone] at [phone] to inform with communication to keep patient NPO at midnight and will receive Mg and K replacement in AM.
[2023-03-12] VITALS (14 sets, daily range): BP systolic 114–179; BP diastolic 65–96; PULSE 58–87; RESP 12–26; TEMP 36.7–37; O2SAT 95–98; BMI 35.6
[2023-03-12 03:12] LABS: Absolute Lymphocyte Count 1.86 X10^3/uL (0.83-4.51); Absolute Neutrophil Count 1.8 X10^3/uL (2.0-7.7); Basophil# 0.03 X10^3/uL; Basophil% 0.7 % (0-1); Eosinophil# 0.02 X10^3/uL; Eosinophils% 0.4 % (0-5); Hematocrit 49.2 % (40-54); Hemoglobin 15.6 g/dL (13.0-16.5); Lymphocyte # 1.86 X10^3/ul (0.83-4.51); Lymphocyte % 41.3 % (19-41); Mean Corp Hgb Conc 31.7 g/dL (32-36); Mean Corpuscular Hgb 29.2 pg (27.0-32.0); Mean Platelet Vol. 10.4 fl (6.2-12.0); Monocyte# 0.81 X10^3/uL; NRBC Flagged by Analyzer 0 % (0-5); Neutrophil # 1.77 X10^3/uL (2.7-7.7); Neutrophil % 39.4 % (47-70); Platelet Count 105 K/mm3 (150-450); RBC Distribution Width CV 14.7 % (11.6-14.6); Red Blood Count 5.35 M/mm3 (4.6-6.2); White Blood Count 4.5 K/mm3 (4.4-11.0)
[2023-03-12 03:35] LABS: Partial Thromboplast Time 62.6 Seconds (24.1-36.2)
[2023-03-12 03:45] LABS: Troponin-I HS 594 pg/mL (3.0-78.0)
[2023-03-12 03:46] LABS: Magnesium 2.3 mg/dL (1.6-2.6); Potassium 3.6 mmol/L (3.5-5.1)
--- NOTE | 2023-03-12 04:01 | NURSING ---
PTT at 0300 62.6, which is within therapeutic range. No changes to be made, continue at 8 ml/hr.
[2023-03-12 04:11] LABS: Anion Gap 8 (5-15); BUN 21 mg/dL (7-18); BUN/Creat Ratio 23.1 RATIO (10-20); Calcium,Total 7.9 mg/dL (8.5-10.1); Chloride 105 mmol/L (98-107); Creatinine, Serum 0.91 mg/dL (0.70-1.30); EST Glomerular Filtration Rate 86 mL/min (>60); Est Glom Filt Rate - Afr Amer 104 mL/min (>60); Estimated Creatinine Clearance 78.05 ml/min; Glucose 87 mg/dL (74-106); Potassium 3.6 mmol/L (3.5-5.1); Sodium Level 140 mmol/L (136-145)
--- NOTE | 2023-03-12 05:00 | EKG12_ITS ---
Test Reason : AM EKG Blood Pressure : / mmHG Vent. Rate : 086 BPM Atrial Rate : 000 BPM P-R Int : 000 ms QRS Dur : 172 ms QT Int : 444 ms P-R-T Axes : 000 -82 065 degrees QTc Int : 531 ms Atrial fibrillation Left axis deviation Right bundle branch block Inferior infarct , age undetermined Anterolateral infarct , age undetermined Abnormal ECG When compared with ECG of 10-MAR-2023 11:13, MANUAL COMPARISON REQUIRED, DATA IS UNCONFIRMED Confirmed by EDWARD GENTILE, GORDON ([id number]), science editor STEPHANIA OLIVEIRA ([id number]) on 03/18/2023 10:18:51 AM Referred By: Confirmed By:GORDON LEON MD
[2023-03-12] MEDS: Lisinopril 10 MG Tablet PO (08:13)
[2023-03-12] MEDS: Aspirin E.C. 81 MG Tablet PO (08:13)
[2023-03-12] MEDS: Carvedilol 6.25 MG Tablet PO ×2 (08:13→20:26)
--- NOTE | 2023-03-12 09:27 | PN.HOSP_ITS ---
Subjective Subjective No issues overnight, family brought in his CPAP from home Objective Data Objective Data Vital Signs: Vital Signs Temp Pulse Resp BP Pulse Ox O2 Del Method O2 Flow Rate 98.1 F 69 26 H 114/65 96 Room Air 2 03/12/23 03:51 03/12/23 07:34 03/12/23 07:34 03/12/23 03:51 03/12/23 08:08 03/12/23 08:08 03/12/23 08:08 FiO2 30 03/12/23 07:34 Oxygen Flow Rate (L/min) 2 Oxygen Delivery Method Room Air Weight: 269 lb 13.533 oz Body Mass Index (BMI) 35.6 Intake & Output: Intake and Output for Last 24 Hours 03/11/23 03/12/23 03/13/23 03:59 03:59 03:59 Intake Total 72.33 / 72.33 176.22 / 176.22 110.27 / 110.27 Output Total 350 / 350 1025 / 1025 250 / 250 Balance -277.67 / -277.67 -848.78 / -848.78 -139.73 / -139.73 Lab / Micro Data 03/12/23 03:00 03/12/23 03:00 Labs: Laboratory Results - last 24 hr 03/11/23 10:20: APTT 63.7 H 03/11/23 12:20: Troponin I High Sens 598 H* 03/11/23 16:08: APTT 66.9 H 03/12/23 03:00: WBC 4.5, RBC 5.35, Hgb 15.6, Hct 49.2, MCV 92.0, MCH 29.2, MCHC 31.7 L, RDW Std Deviation 50.0 H, RDW Coeff of Maria Victoria 14.7 H, Plt Count 105 L, MPV 10.4, Immature Gran % (Auto) 0.200, Neut % (Auto) 39.4 L, Lymph % (Auto) 41.3 H, Saline % (Auto) 18.0 H, Eos % (Auto) 0.4, Baso % (Auto) 0.7, Absolute Neuts (auto) 1.8 L, Absolute Lymphs (auto) 1.86, Nucleated RBC % 0, APTT 62.6 H, Sodium 140, Potassium 3.6 03/12/23 03:00: Potassium 3.6, Chloride 105, Carbon Dioxide 27.0, Anion Gap 8, BUN 21 H, Creatinine 0.91, Estim Creat Clear Calc 78.05, Est GFR (MDRD) Af Amer 104, Est GFR (MDRD) Non-Af 86, BUN/Creatinine Ratio 23.1 H, Glucose 87, Calcium 7.9 L, Magnesium 2.3, Troponin I High Sens 594 H* Micro: Microbiology 03/10/23 11:39 Nasal Secretion SARS-CoV-2 & FLU Antigen (Rapid) - Final Radiography Diagnostic Testing: Radiology Impression Echocardiogram 03/10/23 14:36 Interpretation Summary The estimated ejection fraction is 55 %. Unable to assess diastolic dysfunction due to arrhythmia. There is mild biatrial dilatation. Mild mitral annular calcification. No previous echo for comparison. Contrast echo was used/Definity The study was technically difficult. Contrast injection was performed. Ordering Physician: Jak Bruce Performed By: Abdullahi Moody RCS Rhythm Strip Rhythm Strip: A-fib Rate: 103 Ectopy: None Physical Exam Narrative General: Alert, Oriented x3, Cooperative, No apparent distress HEENT: Atraumatic, PERRLA, EOMI, Normocephalic Oral: Dry mucosa Neck: Supple, No JVD Lungs: Diminished, Normal air movement, No rhonchi, No wheeze, No rales Cardiovascular: Regular rate, Regular Rhythm, Normal S1, Normal S2, No murmurs Abdomen: Soft, Non Tender, Non-Distended, No Hepato-splenomegaly Extremities: Edema, Capillary Refill Less than 3 Seconds Skin: No rashes, No breakdown, chronic venous stasis changes Musculoskeletal: No Tenderness to Palpation of Joints or Extremities Neurological: Moves all extremities, no focal deficits, motor Exam 5/5 strength throughout, Sensory exam intact to light touch and pain Psych/Mental Status: Flat Assessment & Plan Assessment/Plan (1) Non-STEMI (non-ST elevated myocardial infarction): PLAN: Plan 1. Non-STEMI/CAD status post CABG ? Unclear as to his medical history as he does not provide much history and he is never been seen here before ? Will consult cardiology ? Echo with an EF of 55% cannot determine diastolic dysfunction still awaiting opinion from cardiology on whether to proceed with heart catheter just simply medical management ? Continue with the heparin drip ? Continue with Coreg and lisinopril ? Will start him on Lipitor 2. COMPA/morbid obesity ? BMI 35.7, discussed lifestyle modifications ? Will see if family can bring in his CPAP otherwise will have respiratory provide him with BiPAP at night with baseline settings DVT: Heparin drip Charges/Coding Visit Charges Inpatient E&M: 93686 Subs Hosp L2
--- NOTE | 2023-03-12 11:56 | CASEMGMT ---
Discharge Planning A list of SNF providers including quality and resource use data and consistent with the patient's preferred geographic region, medical needs, and insurance network was created in [facility] Guide.? This list was provided to the SW. Ivonne Potter Discharge Planning Asst.
--- NOTE | 2023-03-12 13:40 | NURSING ---
Pt taken to research lab assistant via transport ASSISTANT MANAGER OF OPERATIONS, report given to Emely MCHUGH
--- NOTE | 2023-03-12 15:43 | CASEMGMT ---
Discharge Planning A list of SNF providers including quality and resource use data and consistent with the patient's preferred geographic region ([id number]), medical needs, and insurance network was created in [facility] Guide.? This list was provided to the SW. Ivonne Potter Discharge Planning Asst.
--- NOTE | 2023-03-12 16:00 | CASEMGMT ---
Social Work This marketing writer updated that patient's son has expressed desire for patient to go to [facility] at discharge. This marketing writer contacted patient's son Sergio at [phone]. The son Sergio reports to be a tow truck driver currently on the road. Confirms wish for patient to be closer to the sun who lives in [place]. Son is only familiar with [facility]. The son reports it would be very difficult and challenging for patient to return back to the patient's brother's home. Presented patients room to touch base and confirm that patient prefers facility in [facility] versus [facility]. Patient out of the room receiving a heart catheterization. Plan: anticipate short-term fdc facility. Need to speak with patient to confirm patient's agreement with plan. -RICH Renteria, FITTER HELPER *This note was generated with [employer] dictation software. It may contain incorrect words, spelling, and punctuation that were not noted in review of the chart prior to signing*
--- OUTSIDE RECORDS SUMMARY | 2023-03-12 17:24 | XMS RPT_ITS | CCD ---
Author Name Unknown Address [address] [place] [address] Organization [facility] Care Team Providers Care Mohs Surgeon/General Dermatologist Name Role Phone Unavailable Primary Care Provider Unavailnany e 13, Pharmacist Unavailable Juancarlos TURRET PRESS OPERATOR.Jie GALAVIZ Primary Care Provider GOYO GAFFNEY Admitting Unavailable GOYO GAFFNEY Attending Unavailable GOYO GAFFNEY Primary Care Unavailable ANISA HECTOR MD Attending Unavailable ANISA HECTOR MD Primary Care Unavailable ANISA HECTOR MD Admitting Unavailable SCOT MELCHOR Referring UnavailJIE Ta Attending Unavailable JUANCARLOS, JIE Primary Care Unavailable MAGNO LAWSON Referring Unavailable AGA, MAGNO Referring Unavailable MAGNO LAWSON Referring Unavailable SCOT MELCHOR Referring UnavailMAGNO Cash Attending Unavailable JIE BAUER Attending Unavailable JUANCARLOS, JIE Primary Care Unavailable JIE BAUER Referring Unavailable MAGNO LAWSON Referring Unavailable KNARA, JIE Primary Care Unavailable MAGNO LAWSON Referring Unavailable JUANCARLOS, JIE Primary Care Unavailable JUANCARLOS, JIE Primary Care Unavailable MAGNO LAWSON Referring Unavailable JUANCARLOS, JIE Primary Care Unavailable JIE BAUER Referring Unavailable Allergies Allergy Classification Reported Allergen(s) Allergy Type Date of Onset Reaction(s) Facility (1 source) 01/03/23 (+) MRSA WOUND; Translations: [01/03/23 (+) MRSA WOUND] Propensity to adverse reactions (disorder) [facility] Repository Medications Current Medications Medication Drug Class(es) Dates Sig (Normalized) Sig (Original) perflutren lipid microspheres 1.3 mL in NaCl (PF) 0.9% 10 mL injection (DEFINITY) (12 sources) Start: 11-05-2022 End: 02-04-2024 perflutren lipid microspheres 1.3 mL in NaCl (PF) 0.9% 10 mL injection (DEFINITY) 125 ml sodium chloride 9 mg/ml prefilled syringe (12 sources) Start: 11-05-2022 End: 02-04-2024 sodium chloride 0.9 % (flush) 10 mL (BD POSIFLUSH) Completed/Discontinued Medications Medication Drug Class(es) Dates Sig (Normalized) Sig (Original) amLODIPine 10 mg oral tablet (13 sources) Dihydropyridine Calcium Channel Aroldo Start: 01-20-2023 End: 01-20-2023 take 1 tablet by mouth once daily amLODIPine (NORVASC) 10 mg tablet Indications: Hypertension, essential Take 1 tablet by mouth once daily. 90 tablet 0 01/20/2023 Active Problems Active Problems Problem Classification Problem Date Documented Date Episodic/Chronic Cardiac dysrhythmias (20 sources) Paroxysmal atrial fibrillation; Translations: [Paroxysmal atrial fibrillation] Onset: 11-05-2022 11-04-2022 Chronic Congestive heart failure; nonhypertensive (1 source) Heart failure, unspecified; Translations: [Heart failure, unspecified] Onset: 01-05-2023 Chronic Coronary atherosclerosis and other heart disease (6 sources) Coronary arteriosclerosis; Translations: [Atherosclerotic heart disease of kake coronary artery with unspecified angina pectoris] Onset: 11-05-2022 11-05-2022 Chronic Coronary atherosclerosis and other heart disease (1 source) Presence of aortocoronary bypass graft; Translations: [Presence of aortocoronary bypass graft] Onset: 01-05-2023 Episodic Essential hypertension (1 source) Essential hypertension; Translations: [Essential (primary) hypertension] 01-20-2023 Chronic Fluid and electrolyte disorders (1 source) Hypokalemia; Translations: [Hypokalemia] Onset: 01-05-2023 Episodic Heart valve disorders (1 source) Nonrheumatic aortic (valve) stenosis; Translations: [Nonrheumatic aortic (valve) stenosis] Onset: 01-05-2023 Chronic Hyperplasia of prostate (1 source) Benign prostatic hyperplasia; Translations: [Benign prostatic hyperplasia without lower urinary tract symptoms] 01-20-2023 Chronic Hypertension with complications and secondary hypertension (1 source) Hypertensive heart disease with heart failure; Translations: [Hypertensive heart disease with heart failure] Onset: 01-05-2023 Chronic Malaise and fatigue (1 source) Other malaise; Translations: [Other malaise] Onset: 01-05-2023 Episodic Other aftercare (19 sources) Long-term current use of anticoagulant; Translations: [predatory animal exterminator (current) use of anticoagulants] Onset: 11-06-2022 11-06-2022 Episodic Other aftercare (1 source) snf (current) use of aspirin; Translations: [snf (current) use of aspirin] Onset: 01-05-2023 Episodic Other connective tissue disease (1 source) Paraparesis; Translations: [Other symptoms and signs involving the musculoskeletal system] 11-15-2022 Episodic Other lower respiratory disease (1 source) Dyspnea; Translations: [Shortness of breath] 11-05-2022 Episodic Other nervous system disorders (1 source) Abnormal gait; Translations: [Unspecified abnormalities of gait and mobility] 11-15-2022 Episodic Other nutritional; endocrine; and metabolic disorders (15 sources) Obese class II; Translations: [Obesity, unspecified] Onset: 11-05-2022 11-05-2022 Chronic Other nutritional; endocrine; and metabolic disorders (1 source) Morbid (severe) obesity due to excess calories; Translations: [Morbid (severe) obesity due to excess calories] Onset: 01-05-2023 Chronic Other nutritional; endocrine; and metabolic disorders (1 source) Body mass index (BMI) 39.0-39.9, adult; Translations: [Body mass index [BMI] 39.0-39.9, adult] Onset: 01-05-2023 Chronic Other nutritional; endocrine; and metabolic disorders (1 source) Obesity, unspecified; Translations: [Obesity, Class II, BMI 35-39.9] Onset: 11-05-2022 Chronic Peripheral and visceral atherosclerosis (3 sources) Peripheral vascular disease, unspecified; Translations: [Peripheral vascular disease, unspecified] Onset: 11-15-2022 11-15-2022 Chronic Pneumonia (except that caused by tuberculosis or sexually transmitted disease) (2 sources) Pneumonia, unspecified organism; Translations: [Bacterial pneumonia] Onset: 01-05-2023 01-20-2023 Episodic Residual codes; unclassified (1 source) Tobacco use and exposure - finding; Translations: [Tobacco use] 11-05-2022 Episodic Respiratory failure; insufficiency; arrest (adult) (1 source) Acute respiratory failure with hypoxia; Translations: [Acute respiratory failure with hypoxia] Onset: 01-05-2023 Episodic Skin and subcutaneous tissue infections (2 sources) Cellulitis of right lower limb; Translations: [Cellulitis of left lower limb] Onset: 01-05-2023 Episodic Substance-related disorders (1 source) Nicotine dependence, unspecified, uncomplicated; Translations: [Nicotine dependence, unspecified, uncomplicated] Onset: 01-05-2023 Chronic Thyroid disorders (2 sources) Acquired hypothyroidism; Translations: [Hypothyroidism, unspecified] Onset: 11-15-2022 11-15-2022 Chronic Unclassified (1 source) Cough, unspecified; Translations: [Cough, unspecified] Onset: 01-05-2023 Unclassified (1 source) Chronic atrial fibrillation, unspecified; Translations: [Chronic atrial fibrillation, unspecified] Onset: 01-05-2023 Unclassified (1 source) Longstanding persistent atrial fibrillation; Translations: [Longstanding persistent atrial fibrillation (HCC)] Onset: 11-05-2022 Past or Other Problems Problem Classification Problem Date Documented Date Episodic/Chronic Other aftercare (2 sources) predatory animal exterminator (current) use of anticoagulants; Translations: [predatory animal exterminator (current) use of anticoagulants] Onset: 11-06-2022 Episodic Other connective tissue disease (1 source) Other symptoms and signs involving the musculoskeletal system; Translations: [Weakness of both lower extremities] Onset: 11-15-2022 Episodic Other nervous system disorders (1 source) Unspecified abnormalities of gait and mobility; Translations: [Gait disturbance] Onset: 11-15-2022 Episodic Other screening for suspected conditions (not mental disorders or infectious disease) (2 sources) Patient encounter status; Translations: [Encounter for screening for diabetes mellitus] Onset: 11-15-2022 11-15-2022 Episodic Unclassified (1 source) Cough, unspecified; Translations: [Cough, unspecified] Onset: 01-05-2023 Results Test Name Value Interpretation Reference Range Facil ity Vital Signs Date Time Vital Sign Value Performing Clinician Faci chel 01-20-2023 15:41-0500 Body weight 126.1 kg Jie Bauer APRN.SOUND TECHNICIAN SUPERVISOR Work Phone: [facility] 01-20-2023 15:41-0500 Diastolic blood pressure 72 mm[Hg] Jie Bauer TURRET PRESS OPERATOR.SOUND TECHNICIAN SUPERVISOR Work Phone: [facility] 01-20-2023 15:41-0500 Heart rate 84 /min Jie Bauer TURRET PRESS OPERATOR.SOUND TECHNICIAN SUPERVISOR Work Phone: [facility] 01-20-2023 15:41-0500 Respiratory rate 18 /min Jie Bauer TURRET PRESS OPERATOR.SOUND TECHNICIAN SUPERVISOR Work Phone: [facility] 01-20-2023 15:41-0500 SaO2% (BldA) [Mass fraction] 95 % Jie Bauer TURRET PRESS OPERATOR.SOUND TECHNICIAN SUPERVISOR Work Phone: [facility] 01-20-2023 15:41-0500 Systolic blood pressure 130 mm[Hg] Jie Bauer TURRET PRESS OPERATOR.SOUND TECHNICIAN SUPERVISOR Work Phone: [facility] 11-15-2022 12:31-0400 Body weight 123.83 kg Jie Bauer APRN.SOUND TECHNICIAN SUPERVISOR Work Phone: [facility] 11-15-2022 12:31-0400 Diastolic blood pressure 68 mm[Hg] Jie Bauer TURRET PRESS OPERATOR.SOUND TECHNICIAN SUPERVISOR Work Phone: [facility] 11-15-2022 12:31-0400 Heart rate 58 /min Jie Bauer TURRET PRESS OPERATOR.SOUND TECHNICIAN SUPERVISOR Work Phone: [facility] 11-15-2022 12:31-0400 Respiratory rate 18 /min Jie Bauer APRN.SOUND TECHNICIAN SUPERVISOR Work Phone: [facility] 11-15-2022 12:31-0400 SaO2% (BldA) [Mass fraction] 96 % Jie Bauer TURRET PRESS OPERATOR.SOUND TECHNICIAN SUPERVISOR Work Phone: [facility] 11-15-2022 12:31-0400 Systolic blood pressure 132 mm[Hg] Jie Bauer APRN.SOUND TECHNICIAN SUPERVISOR Work Phone: [facility] 11-05-2022 13:09-0400 Diastolic blood pressure 60 mm[Hg] Magno Lawson MD Work Phone: [facility] 11-05-2022 13:09-0400 Systolic blood pressure 138 mm[Hg] Magno Lawson MD Work Phone: [facility] 11-05-2022 12:55-0400 Body height 185.4 cm Magno Lawson MD Work Phone: [facility] 11-05-2022 12:55-0400 Body weight 129.28 kg Magno Lawson MD Work Phone: [facility] 11-05-2022 12:55-0400 Heart rate 82 /min Magno Lawson MD Work Phone: [facility] Encounters Encounter Date Encounter Type Care Provider Facility Start: 01-20-2023 End: 01-20-2023 ambulatory JIE BAUER Facility:[facility] Start: 01-20-2023 End: 01-20-2023 Patient encounter procedure Jie Bauer APRN.SOUND TECHNICIAN SUPERVISOR Work Phone: [facility] Procedures Date Procedure Procedure Detail Performing Clinician Start: 01-04-2023 Urinalysis GOYO ROA Plan of Treatment Date Care Activity Detail Author Start: 01-06-2026 Diabetes Screening Diabetes Screenin [facility] Start: 11-15-2025 DIABETES SCREEN DIABETES SCREEN [facility] Start: 11-15-2025 Diabetes Screening Diabetes Screenin [facility] Start: 11-02-2025 DIABETES SCREEN DIABETES SCREEN [facility] Start: 01-21-2024 Annual PCP Team Creative Services Designer nitza Disease Visit Annual PCP Team Chronic Disease Visit [facility] Start: 11-16-2023 ANNUAL PCP TEAM CLOTH STOCK SORTER NITZA DISEASE VISIT ANNUAL PCP TEAM CHRONIC DISEASE VISIT [facility] Start: 11-06-2023 Hepatitis B surface antibody level LDL CHOLESTEROL [facility] Start: 11-15-2022 End: 01-15-2023 Hemoglobin A1c in Blood [facility] Work Phone: Payers Date Payer Category Payer Medicare [id number] 2022 Medicare [id number] 2022 Medicare [id number] 1945 Unknown [id number] 1945 Unknown [id number] Social History Date Type Detail Facility Start: 11-02-2022 End: 11-15-2022 Tobacco smoking status NHIS Smokes tobacco daily [facility] History of tobacco use [facility] Start: 11-02-2022 End: 11-03-2022 Cigarettes smoked current (pack per day) - Reported 1 [facility] Start: 11-02-2022 End: 11-15-2022 Alcohol intake Lifetime non-drinker (finding) [facility] Start: 11-02-2022 End: 11-03-2022 Tobacco use panel [facility] National Score (1-10 0), lower number is lower risk 53 [facility] Start: 1945 [facility]igned [facility] Start: 11-15-2022 Tobacco use and exposure Smokeless tobacco non-user [facility] Work Phone: Clinical Notes 10-20-2022 to 01-20-2023 Jie Bauer APRN.SOUND TECHNICIAN SUPERVISOR - 01/20/2023 3:42 PM ESTTelephone Encounter - Priscilla Woodson RP - 12/26/2022 11:09 AM EDTTelephone Encounter - Teagan Shepherd RN - 12/16/2022 1:24 PM EDT Note Date & Type Note Facility 01-20-2023 Note HNO ID: [id number] Author: Jie Bauer APRN.SOUND TECHNICIAN SUPERVISOR Service: ? Author Type: Nurse Practitioner Type: Progress Notes Filed: 01/20/2023 4:04 PM Note Text: Chief Complaint Patient presents with: Hospital F/U [facility] Kady Penny is a 77 year old male who presents here today for Above Complaints.. Patient presents for hospital follow up for pneumonia. Patient reports he is feeling much better. Patient reports some confusion regarding his medications as he was prescribed different things at [facility] than he is supposed to be taking. Patient is a poor historian. Past medical history, appointments, medications, allergies reviewed. 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 Patient Allergies ALLERGIES No Known Allergies Current Medications Current Outpatient Medications on File Prior to Visit Medication Sig levothyroxine (LEVOXYL) 112 mcg tablet Take 1 tablet by mouth once daily. Take on empty stomach. For thyroid. warfarin (COUMADIN) 4 mg tablet Take 1 tablet by mouth daily as directed. As directed by warfarin clinic. tamsulosin (FLOMAX) 0.4 mg Take 0.4 mg by mouth once daily. isosorbide mononitrate ER (IMDUR) 120 mg 24 hr tablet Take 120 mg by mouth once daily. potassium chloride (KLOR-CON M10 ORAL) Take 1 tablet by mouth once daily. bumetanide (BUMEX) 1 mg tablet Take 1 mg by mouth once daily. rosuvastatin (CRESTOR) 40 mg tablet Take 40 mg by mouth once daily. metoprolol succinate ER (TOPROL XL) 100 mg Take 100 mg by mouth once daily. amLODIPine (NORVASC) 10 mg tablet Take 10 mg by mouth once daily. lisinopril (ZESTRIL) 20 mg tablet Take 20 mg by mouth once daily. Current Facility-Administered Medications on File Prior to Visit Medication perflutren lipid microspheres 1.3 mL in NaCl (PF) 0.9% 10 mL injection (DEFINITY) sodium chloride 0.9 % (flush) 10 mL (BD POSIFLUSH) Social History Social History Tobacco Use Smoking status: Every Day Packs/day: 1 Types: Cigarettes Smokeless tobacco: Never Substance Use Topics Alcohol use: Never Drug use: Never Review of Symptoms REVIEW OF SYSTEMS SEE HPI EXAM: BP 130/72 Pulse 84 Resp 18 Wt 126.1 kg (278 lb) SpO2 95% BMI 36.68 kg/m? General Appearance: Well appearing, alert, in no acute distress, well-hydrated, well nourished.. Lungs: Lungs clear to auscultation. No wheezing, rhonchi, rales.. Heart: RRR without murmur, gallop, or rubs. No ectopy. Peripheral Pulses: Normal. Health Maintenance List Covid-19 Vaccine(1) Never done Pneumococcal Vaccine: 65+(1 - PCV) Never done Hepatitis C Screening Never done DTaP,Tdap,Td Vaccine(1 - Tdap) Never done Shingrix Vaccine(1 of 2) Never done RSV Vaccine(1 - 1-dose 60+ series) Never done Advance Directive Discussion Never done Depression Assessment Never done Influenza Vaccine(1) Never done LDL Cholesterol due on 11/06/2023 Annual PCP Team Chronic Disease Visit due on 11/16/2023 Diabetes Screening due on 01/06/2026 ASSESSMENT/PLAN: 1. Hypertension, essential - ICD9: 401.9, ICD10: I10 (primary diagnosis) - Controlled - Continue current medications - Recommend home blood pressure monitoring, to bring results to next visit - Encouraged sodium restriction, DASH or Mediterranean diet - Recommend regular aerobic exercise - ISOSORBIDE MONONITRATE ER 120 MG TABLET,EXTENDED RELEASE 24 HR - AMLODIPINE 10 MG TABLET 2. Benign prostatic hyperplasia, unspecified whether lower urinary tract symptoms present - ICD9: 600.00, ICD10: N40.0 - TAMSULOSIN 0.4 MG CAPSULE 3. Coronary artery disease involving kake coronary artery of kake heart without angina pectoris - ICD9: 414.01, ICD10: I25.10 - NITROGLYCERIN 0.4 MG SUBLINGUAL TABLET 4. Bacterial pneumonia - ICD9: 482.9, ICD10: J15.9 -Resolved, denies CP, SOB Medication reviewed with patient and patient given a print out of medications with directions of frequency and dose. Patient and brother verbalize understanding. Jie Bauer, VIVIAN.[facility] 01-20-2023 History of Present illness Narrative Chief Complaint Patient presents with: Hospital F/U HPI Kady Penny is a 77 year old male who presents here today for Above Complaints.. Patient presents for hospital follow up for pneumonia. Patient reports he is feeling much better. Patient reports some confusion regarding his medications as he was prescribed different things at [facility] than he is supposed to be taking. Patient is a poor historian. Past medical history, appointments, medications, allergies reviewed. 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 Patient Allergies ALLERGIES No Known Allergies Current Medications Current Outpatient Medications on File Prior to Visit Medication Sig levothyroxine (LEVOXYL) 112 mcg tablet Take 1 tablet by mouth once daily. Take on empty stomach. For thyroid. warfarin (COUMADIN) 4 mg tablet Take 1 tablet by mouth daily as directed. As directed by warfarin clinic. tamsulosin (FLOMAX) 0.4 mg Take 0.4 mg by mouth once daily. isosorbide mononitrate ER (IMDUR) 120 mg 24 hr tablet Take 120 mg by mouth once daily. potassium chloride (KLOR-CON M10 ORAL) Take 1 tablet by mouth once daily. bumetanide (BUMEX) 1 mg tablet Take 1 mg by mouth once daily. rosuvastatin (CRESTOR) 40 mg tablet Take 40 mg by mouth once daily. metoprolol succinate ER (TOPROL XL) 100 mg Take 100 mg by mouth once daily. amLODIPine (NORVASC) 10 mg tablet Take 10 mg by mouth once daily. lisinopril (ZESTRIL) 20 mg tablet Take 20 mg by mouth once daily. Current Facility-Administered Medications on File Prior to Visit Medication perflutren lipid microspheres 1.3 mL in NaCl (PF) 0.9% 10 mL injection (DEFINITY) sodium chloride 0.9 % (flush) 10 mL (BD POSIFLUSH) Social History Social History Tobacco Use Smoking status: Every Day Packs/day: 1 Types: Cigarettes Smokeless tobacco: Never Substance Use Topics Alcohol use: Never Drug use: Never Review of Symptoms REVIEW OF SYSTEMS SEE HPI EXAM: BP 130/72 Pulse 84 Resp 18 Wt 126.1 kg (278 lb) SpO2 95% BMI 36.68 kg/m General Appearance: Well appearing, alert, in no acute distress, well-hydrated, well nourished.. Lungs: Lungs clear to auscultation. No wheezing, rhonchi, rales.. Heart: RRR without murmur, gallop, or rubs. No ectopy. Peripheral Pulses: Normal. Health Maintenance List Covid-19 Vaccine(1) Never done Pneumococcal Vaccine: 65+(1 - PCV) Never done Hepatitis C Screening Never done DTaP,Tdap,Td Vaccine(1 - Tdap) Never done Shingrix Vaccine(1 of 2) Never done RSV Vaccine(1 - 1-dose 60+ series) Never done Advance Directive Discussion Never done Depression Assessment Never done Influenza Vaccine(1) Never done LDL Cholesterol due on 11/06/2023 Annual PCP Team Chronic Disease Visit due on 11/16/2023 Diabetes Screening due on 01/06/2026 ASSESSMENT/PLAN: 1. Hypertension, essential - ICD9: 401.9, ICD10: I10 (primary diagnosis) - Controlled - Continue current medications - Recommend home blood pressure monitoring, to bring results to next visit - Encouraged sodium restriction, DASH or Mediterranean diet - Recommend regular aerobic exercise - ISOSORBIDE MONONITRATE ER 120 MG TABLET,EXTENDED RELEASE 24 HR - AMLODIPINE 10 MG TABLET 2. Benign prostatic hyperplasia, unspecified whether lower urinary tract symptoms present - ICD9: 600.00, ICD10: N40.0 - TAMSULOSIN 0.4 MG CAPSULE 3. Coronary artery disease involving kake coronary artery of kake heart without angina pectoris - ICD9: 414.01, ICD10: I25.10 - NITROGLYCERIN 0.4 MG SUBLINGUAL TABLET 4. Bacterial pneumonia - ICD9: 482.9, ICD10: J15.9 -Resolved, denies CP, SOB Medication reviewed with patient and patient given a print out of medications with directions of frequency and dose. Patient and brother verbalize understanding. Jie Bauer APRN.SOUND TECHNICIAN SUPERVISOR documented in this encounter [facility] 01-10-2023 Note . MICRO - Microbiology PROCEDURE: Blood Culture (bacterial) [*1] SOURCE: Blood BODY SITE: COLLECTED DATE/TIME: 01/03/2023 21:00 EDT RECEIVED DATE/TIME: 01/04/2023 23:39 EDT START DATE/TIME: 01/04/2023 23:41 EDT FREE TEXT SOURCE: FINAL REPORTS Final Report [] Verified Date/Time/Personnel: 01/09/2023 23:59 EDT Blood Culture: No Growth at 5 days. PRELIMINARY REPORTS Preliminary Report [] Verified Date/Time/Personnel: 01/05/2023 02:00 EDT Culture has been received in lab and is no growth to date. Routine cultures are held for 5 days. Performing Locations *1: This test was performed at: [address], [address] [place] [address] ([place]) 01-10-2023 Note . MICRO - Microbiology PROCEDURE: Blood Culture (bacterial) [*1] SOURCE: Blood BODY SITE: COLLECTED DATE/TIME: 01/03/2023 21:50 EDT RECEIVED DATE/TIME: 01/04/2023 23:39 EDT START DATE/TIME: 01/04/2023 23:41 EDT FREE TEXT SOURCE: FINAL REPORTS Final Report [] Verified Date/Time/Personnel: 01/09/2023 23:59 EDT Blood Culture: No Growth at 5 days. PRELIMINARY REPORTS Preliminary Report [] Verified Date/Time/Personnel: 01/05/2023 02:00 EDT Culture has been received in lab and is no growth to date. Routine cultures are held for 5 days. Performing Locations *1: This test was performed at: [address], [address] [place] [address] ([facility] 01-08-2023 Note . MICRO - Microbiology PROCEDURE: Culture Wound Aerobic with Gram Stain [*1] SOURCE: Wound (surface) BODY SITE: Leg COLLECTED DATE/TIME: 01/03/2023 22:30 EDT RECEIVED DATE/TIME: 01/04/2023 23:55 EDT START DATE/TIME: 01/04/2023 23:55 EDT FREE TEXT SOURCE: FINAL REPORTS Final Report [] Verified Date/Time/Personnel: 01/08/2023 08:21 EDT Heavy Enterobacter cloacae complex Moderate Methicillin-Resistant Staphylococcus aureus This staphylococci does not demonstrate inducible clindamycin resistance in vitro. Light Enterococcus faecalis Light normal skin marcos present. Sensitivity testing not indicated. PRELIMINARY REPORTS Preliminary Report [] Verified Date/Time/Personnel: 01/07/2023 11:57 EDT Heavy Enterobacter cloacae complex VONDA to follow Moderate Staphylococcus aureus VONDA to follow Light Enterococcus faecalis VONDA to follow Light normal skin marcos present. Sensitivity testing not indicated. Preliminary Report [] Verified Date/Time/Personnel: 01/05/2023 11:13 EDT Culture results pending. STAINS GS [] Verified Date/Time/Personnel: 01/05/2023 01:14 EDT 3+ Gram Negative Rods 2+ Gram Positive Cocci SUSCEPTIBILITY RESULTS Enterobacter cloacae complex Antibiotic VONDA Dilut VONDA Inter Amikacin <=16 Susceptible Amoxicillin/ >16/8 Resistant Clavulanate Ampicillin >16 Resistant Ampicillin/ 16/8 Intermediate Sulbactam Aztreonam <=4 Susceptible Cefazolin >16 Resistant Cefotaxime <=2 Susceptible Cefuroxime 8 Susceptible Ciprofloxacin <=0.25 Susceptible Ertapenem <=0.5 Susceptible Gentamicin <=2 Susceptible Imipenem <=1 Susceptible Levofloxacin <=0.5 Susceptible Meropenem <=1 Susceptible Minocycline <=4 Susceptible Moxifloxacin <=2 Susceptible MICRO - Microbiology SUSCEPTIBILITY RESULTS Enterobacter cloacae complex Antibiotic VONDA Dilut VONDA Inter Piperacillin/ <=8 Susceptible Tazobactam Tetracycline <=4 Susceptible Trimethoprim/ <=0.5/9.5 Susceptible Sulfa Methicillin-Resistant Staphylococcus aureus Antibiotic VONDA Dilut VONDA Inter Ampicillin/ <=8/4 Resistant Sulbactam Azithromycin >4 Resistant Cefepime >16 Resistant Cefotaxime 32 Resistant Ceftaroline <=0.5 Susceptible Ceftriaxone >32 Resistant Ciprofloxacin >2 Resistant Clindamycin <=0.25 Susceptible Daptomycin <=0.5 Susceptible Erythromycin >4 Resistant Imipenem <=4 Resistant Levofloxacin >4 Resistant Linezolid 2 Susceptible Meropenem 4 Resistant Oxacillin >2 Resistant Penicillin >2 Resistant Rifampin <=1 Susceptible Tetracycline >8 Resistant Trimethoprim/ >2/38 Resistant Sulfa Vancomycin 1 Susceptible Enterococcus faecalis Antibiotic VONDA Dilut VONDA Inter Ampicillin <=2 Susceptible Ciprofloxacin <=1 Susceptible Gentamicin <=500 Susceptible synergy Levofloxacin <=1 Susceptible Penicillin 2 Susceptible Vancomycin 1 Susceptible Performing Locations *1: This test was performed at: [facility], [address] [place] [address], [id number] , [facility] ([place]) 12-26-2022 Miscellaneous Notes [facility] Ambulatory Pharmacy Anticoagulation Clinic Anticoagulation Episode Summary Anticoagulation Care Providers Provider Role Specialty Phone number Magno Lawson MD Referring Cardiology [phone] Kady Penny is a 77 year old year old male patient being evaluated today for a Lab INR. Patient is currently on the following anticoagulant(s) Warfarin. Labs INR (no units) Date Value 12/26/2022 2.8 12/17/2022 1.0 11/21/2022 2.5 Hemoglobin (g/dL) Date Value 11/02/2022 17.1 Hematocrit (%) Date Value 11/02/2022 50.0 Platelet Count (k/uL) Date Value 11/02/2022 151 Creatinine (mg/dL) Date Value 11/02/2022 0.86 Bilirubin, Total (mg/dL) Date Value 11/02/2022 1.5 ALT (U/L) Date Value 11/02/2022 13 AST (U/L) Date Value 11/02/2022 24 Estimated Creatinine Clearance: 100.8 mL/min (based on SCr of 0.86 mg/dL). ALLERGIES No Known Allergies Indication for Warfarin: snf (current) use of anticoagulants Anticoagulation Episode Summary Current INR goal: 2.0-3.0 Assessment: INR result of 2.8 is therapeutic Plan: Current Warfarin Dosing As of 12/26/2022 Full warfarin instructions: 4 mg every day Called and spoke to patient/caregiver, spoke to Amos and Kady Advised patient to continue current weekly dose as noted above Next lab INR check scheduled on 01/08/2023 (Tu/Weds or TH as they were not sure when) Patient and Patient's caregiver verbalizes understanding of the plan. Patient denies need for refills. Priscilla Woodson RPh Clinical Pharmacist, Pharmacy Anticoagulation Clinic Pharmacy Anticoagulation Clinic Pager: [phone]. documented in this encounter [facility] 12-16-2022 Miscellaneous Notes Spoke with Amos (brother) to take Kady to the Pharmacy to have INR drawn. documented in this encounter [facility] 11-22-2022 Miscellaneous Notes [facility] Ambulatory Pharmacy Anticoagulation Clinic Anticoagulation Episode Summary Anticoagulation Care Providers Provider Role Specialty Phone number Magno Lawson MD Referring Cardiology [phone] Kady Penny is a 77 year old year old male patient being evaluated today for a Telemanagement visit. Patient is currently on the following anticoagulant(s) Warfarin. Labs INR (no units) Date Value 11/21/2022 2.5 11/15/2022 2.2 11/12/2022 1.0 Hemoglobin (g/dL) Date Value 11/02/2022 17.1 Hematocrit (%) Date Value 11/02/2022 50.0 Platelet Count (k/uL) Date Value 11/02/2022 151 Creatinine (mg/dL) Date Value 11/02/2022 0.86 Bilirubin, Total (mg/dL) Date Value 11/02/2022 1.5 ALT (U/L) Date Value 11/02/2022 13 AST (U/L) Date Value 11/02/2022 24 Estimated Creatinine Clearance: 100.8 mL/min (based on SCr of 0.86 mg/dL). ALLERGIES No Known Allergies Indication for Warfarin: Longstanding persistent atrial fibrillation (hcc) snf (current) use of anticoagulants Anticoagulation Episode Summary Current INR goal: 2.0-3.0 Assessment: INR result of 2.5 is therapeutic Plan: Current Warfarin Dosing As of 11/22/2022 Full warfarin instructions: 6 mg every Fri; 4 mg all other days Called and spoke to patient/caregiver Stp and his brother Advised patient to increase total weekly regimen Next lab INR check scheduled on 11/28/2022 Patient and Patient's caregiver verbalizes understanding of the plan. Patient denies need for refills. Maya Coughlin RPh Clinical Pharmacist, Pharmacy Anticoagulation Clinic Pharmacy Anticoagulation Clinic Pager: [phone]. documented in this encounter [facility] 11-15-2022 Miscellaneous Notes Patient notified and states that he is unsure if he has updated his insurance since he moved. He said he will call his insurance and give us a call back. Chula Buckner Cma Please call and let patient know we are not in network for his insurance. Has he updated his medicare since moving? Sorry, we are not an in-network provider. documented in this encounter [facility] 11-15-2022 Note HNO ID: [id number] Author: Jie Bauer APRN.GUILLAUME Service: ? Author Type: Nurse Practitioner Type: Progress Notes Filed: 11/15/2022 12:58 PM Note Text: Chief Complaint Patient presents with: ED Follow-up HPI Kady Penny is a 77 year old male who presents here today for Above Complaints.. Patient presents for Hospital follow up. Patient has PMH CAD with stents, CABG, Afib, PAD with stents, obesity and hypothyroidism. Patient was seen by cardiology and is currently on coumadin. Patient was to be switched to DOAC but was cost prohibitive so continues on coumadin. Patient is a poor historian and his medical history was obtained via records from hospital in [place]. Past medical history, appointments, medications, allergies reviewed. 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 Patient Allergies ALLERGIES No Known Allergies Current Medications Current Outpatient Medications on File Prior to Visit Medication Sig warfarin (COUMADIN) 4 mg tablet Take 1 tablet by mouth daily as directed. As directed by warfarin clinic. tamsulosin (FLOMAX) 0.4 mg Take 0.4 mg by mouth once daily. isosorbide mononitrate ER (IMDUR) 120 mg 24 hr tablet Take 120 mg by mouth once daily. potassium chloride (KLOR-CON M10 ORAL) Take 1 tablet by mouth once daily. bumetanide (BUMEX) 1 mg tablet Take 1 mg by mouth once daily. rosuvastatin (CRESTOR) 40 mg tablet Take 40 mg by mouth once daily. levothyroxine 100 mcg cap Take 100 mcg by mouth daily before breakfast. metoprolol succinate ER (TOPROL XL) 100 mg Take 100 mg by mouth once daily. amLODIPine (NORVASC) 10 mg tablet Take 10 mg by mouth once daily. lisinopril (ZESTRIL) 20 mg tablet Take 20 mg by mouth once daily. Current Facility-Administered Medications on File Prior to Visit Medication perflutren lipid microspheres 1.3 mL in NaCl (PF) 0.9% 10 mL injection (DEFINITY) sodium chloride 0.9 % (flush) 10 mL (BD POSIFLUSH) Social History Social History Tobacco Use Smoking status: Every Day Packs/day: 1 Types: Cigarettes Substance Use Topics Alcohol use: Never Drug use: Never Review of Symptoms REVIEW OF SYSTEMS SEE HPI EXAM: BP 132/68 Pulse (!) 58 Resp 18 Wt 123.8 kg (273 lb) SpO2 96% BMI 36.02 kg/m? General Appearance: Well appearing, alert, in no acute distress, well-hydrated, well nourished.. Skin: Skin color, texture, turgor normal, no suspicious rashes or lesions. Lungs: Lungs clear to auscultation. No wheezing, rhonchi, rales.. Heart: RRR without murmur, gallop, or rubs. No ectopy. Peripheral Pulses: Normal. Neurologic: Positive findings: muscular weakness bilateral lower extremities. Health Maintenance List COVID-19 VACCINE(1) Never done PNEUMOCOCCAL: 65+(1 - PCV) Never done HEPATITIS C SCREENING Never done DTAP,TDAP,TD(1 - Tdap) Never done SHINGRIX VACCINE(1 of 2) Never done ADVANCE DIRECTIVE DISCUSSION Never done DEPRESSION ASSESSMENT Never done INFLUENZA(1) due on 11/15/2022 DIABETES SCREEN due on 11/02/2025 ASSESSMENT/PLAN: 1. Hypothyroidism, acquired - ICD9: 244.9, ICD10: E03.9 (primary diagnosis) - Instructed patient on importance of taking on an empty stomach either first thing in the morning or at bedtime. - check TSH, T4/FTI, and T3 today Stable - TSH BLD - T3 BLD - T4 FREE/FREE THYROX 2. Screening for diabetes mellitus - ICD9: V77.1, ICD10: Z13.1 - HGB A1C 3. Gait disturbance - ICD9: 781.2, ICD10: R26.9 - CONSULT TO [facility] 4. Weakness of both lower extremities - ICD9: 729.89, ICD10: R29.898 - CONSULT TO [facility] 5. Coronary artery disease involving kake heart without angina pectoris, unspecified vessel or lesion type - ICD9: 414.01, ICD10: I25.10 - CONSULT TO [facility] 6. PAD (peripheral artery disease) (HCC) - ICD9: 443.9, ICD10: I73.9 - CONSULT TO [facility] 7. Longstanding persistent atrial fibrillation (HCC) - ICD9: 427.31, ICD10: I48.11 -Currently on coumadin, managed by cardiology -Follow up with cardiology later this month 8. Obesity, Class II, BMI 35-39.9 - ICD9: 278.00, ICD10: E66.9 Stable 9. predatory animal exterminator (current) use of anticoagulants - ICD9: V58.61, ICD10: Z79.01 -on coumadin, attends coumadin clinic. Jie Bauer APRN.[facility] 11-15-2022 Miscellaneous Notes [facility] Ambulatory Pharmacy Anticoagulation Clinic Anticoagulation Episode Summary Anticoagulation Care Providers Provider Role Specialty Phone number Magno Lawson MD Referring Cardiology [phone] Kady Penny is a 77 year old year old male patient being evaluated today for a Telemanagement visit. Patient is currently on the following anticoagulant(s) Warfarin. Labs INR (no units) Date Value 11/15/2022 2.2 11/12/2022 1.0 11/08/2022 1.0 Hemoglobin (g/dL) Date Value 11/02/2022 17.1 Hematocrit (%) Date Value 11/02/2022 50.0 Platelet Count (k/uL) Date Value 11/02/2022 151 Creatinine (mg/dL) Date Value 11/02/2022 0.86 Bilirubin, Total (mg/dL) Date Value 11/02/2022 1.5 ALT (U/L) Date Value 11/02/2022 13 AST (U/L) Date Value 11/02/2022 24 Estimated Creatinine Clearance: 100.8 mL/min (based on SCr of 0.86 mg/dL). ALLERGIES No Known Allergies Indication for Warfarin: Anticoagulation Episode Summary Current INR goal: 2.0-3.0 Assessment: INR result of 2.2 is therapeutic with a large jump in INR this week. Pt and his brother said he took 6mg for the last 2 or 3 days. Plan: Current Warfarin Dosing As of 11/12/2022 Full warfarin instructions: 11/13: 6 mg; 11/14: 6 mg; Otherwise 4 mg every day Called and spoke to patient/caregiver Advised patient to continue with a lower dose for the next few days. Next lab INR check scheduled on 11/20/22 in [place] Patient verbalizes understanding of the plan. Patient denies need for refills. Kirsten Gallardo RPh Clinical Pharmacist, Pharmacy Anticoagulation Clinic Pharmacy Anticoagulation Clinic Pager: [phone]. documented in this encounter [facility] 11-15-2022 Instructions Jie Bauer APRN.CNP - 11/15/2022 12:52 PM EDT Complete labs, including INR Schedule follow up with Dr. Lawosn Schedule with [facility]. They will call you to set up a time for evaluation. documented in this encounter [facility] 11-15-2022 History of Present illness Narrative Chief Complaint Patient presents with: ED Follow-up HPI Kady Penny is a 77 year old male who presents here today for Above Complaints.. Patient presents for Hospital follow up. Patient has PMH CAD with stents, CABG, Afib, PAD with stents, obesity and hypothyroidism. Patient was seen by cardiology and is currently on coumadin. Patient was to be switched to DOAC but was cost prohibitive so continues on coumadin. Patient is a poor historian and his medical history was obtained via records from hospital in [place]. Past medical history, appointments, medications, allergies reviewed. 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 Patient Allergies ALLERGIES No Known Allergies Current Medications Current Outpatient Medications on File Prior to Visit Medication Sig warfarin (COUMADIN) 4 mg tablet Take 1 tablet by mouth daily as directed. As directed by warfarin clinic. tamsulosin (FLOMAX) 0.4 mg Take 0.4 mg by mouth once daily. isosorbide mononitrate ER (IMDUR) 120 mg 24 hr tablet Take 120 mg by mouth once daily. potassium chloride (KLOR-CON M10 ORAL) Take 1 tablet by mouth once daily. bumetanide (BUMEX) 1 mg tablet Take 1 mg by mouth once daily. rosuvastatin (CRESTOR) 40 mg tablet Take 40 mg by mouth once daily. levothyroxine 100 mcg cap Take 100 mcg by mouth daily before breakfast. metoprolol succinate ER (TOPROL XL) 100 mg Take 100 mg by mouth once daily. amLODIPine (NORVASC) 10 mg tablet Take 10 mg by mouth once daily. lisinopril (ZESTRIL) 20 mg tablet Take 20 mg by mouth once daily. Current Facility-Administered Medications on File Prior to Visit Medication perflutren lipid microspheres 1.3 mL in NaCl (PF) 0.9% 10 mL injection (DEFINITY) sodium chloride 0.9 % (flush) 10 mL (BD POSIFLUSH) Social History Social History Tobacco Use Smoking status: Every Day Packs/day: 1 Types: Cigarettes Substance Use Topics Alcohol use: Never Drug use: Never Review of Symptoms REVIEW OF SYSTEMS SEE HPI EXAM: BP 132/68 Pulse (!) 58 Resp 18 Wt 123.8 kg (273 lb) SpO2 96% BMI 36.02 kg/m General Appearance: Well appearing, alert, in no acute distress, well-hydrated, well nourished.. Skin: Skin color, texture, turgor normal, no suspicious rashes or lesions. Lungs: Lungs clear to auscultation. No wheezing, rhonchi, rales.. Heart: RRR without murmur, gallop, or rubs. No ectopy. Peripheral Pulses: Normal. Neurologic: Positive findings: muscular weakness bilateral lower extremities. Health Maintenance List COVID-19 VACCINE(1) Never done PNEUMOCOCCAL: 65+(1 - PCV) Never done HEPATITIS C SCREENING Never done DTAP,TDAP,TD(1 - Tdap) Never done SHINGRIX VACCINE(1 of 2) Never done ADVANCE DIRECTIVE DISCUSSION Never done DEPRESSION ASSESSMENT Never done INFLUENZA(1) due on 11/15/2022 DIABETES SCREEN due on 11/02/2025 ASSESSMENT/PLAN: 1. Hypothyroidism, acquired - ICD9: 244.9, ICD10: E03.9 (primary diagnosis) - Instructed patient on importance of taking on an empty stomach either first thing in the morning or at bedtime. - check TSH, T4/FTI, and T3 today Stable - TSH BLD - T3 BLD - T4 FREE/FREE THYROX 2. Screening for diabetes mellitus - ICD9: V77.1, ICD10: Z13.1 - HGB A1C 3. Gait disturbance - ICD9: 781.2, ICD10: R26.9 - CONSULT TO [facility] 4. Weakness of both lower extremities - ICD9: 729.89, ICD10: R29.898 - CONSULT TO [facility] 5. Coronary artery disease involving kake heart without angina pectoris, unspecified vessel or lesion type - ICD9: 414.01, ICD10: I25.10 - CONSULT TO [facility] 6. PAD (peripheral artery disease) (HCC) - ICD9: 443.9, ICD10: I73.9 - CONSULT TO [facility] 7. Longstanding persistent atrial fibrillation (HCC) - ICD9: 427.31, ICD10: I48.11 -Currently on coumadin, managed by cardiology -Follow up with cardiology later this month 8. Obesity, Class II, BMI 35-39.9 - ICD9: 278.00, ICD10: E66.9 Stable 9. predatory animal exterminator (current) use of anticoagulants - ICD9: V58.61, ICD10: Z79.01 -on coumadin, attends coumadin clinic. Jei Bauer, TURRET PRESS OPERATOR.SOUND TECHNICIAN SUPERVISOR documented in this encounter [facility] 11-12-2022 Miscellaneous Notes [facility] Ambulatory Pharmacy Anticoagulation Clinic Anticoagulation Episode Summary Anticoagulation Care Providers Provider Role Specialty Phone number Magno Lawson MD Referring Cardiology [phone] Kady Penny is a 77 year old year old male patient being evaluated today for a Lab INR. Patient is currently on the following anticoagulant(s) Warfarin. Labs INR (no units) Date Value 11/12/2022 1.0 11/08/2022 1.0 11/05/2022 1.1 Hemoglobin (g/dL) Date Value 11/02/2022 17.1 Hematocrit (%) Date Value 11/02/2022 50.0 Platelet Count (k/uL) Date Value 11/02/2022 151 Creatinine (mg/dL) Date Value 11/02/2022 0.86 Bilirubin, Total (mg/dL) Date Value 11/02/2022 1.5 ALT (U/L) Date Value 11/02/2022 13 AST (U/L) Date Value 11/02/2022 24 Estimated Creatinine Clearance: 103 mL/min (based on SCr of 0.86 mg/dL). ALLERGIES No Known Allergies Indication for Warfarin: Longstanding persistent atrial fibrillation (hcc) snf (current) use of anticoagulants Anticoagulation Episode Summary Current INR goal: 2.0-3.0 Assessment: INR result of 1.0 is SUBtherapeutic due to: Patient in titration phase Patient started warfarin on 11/11. Plan: Current Warfarin Dosing As of 11/12/2022 Full warfarin instructions: 11/13: 6 mg; 11/14: 6 mg; Otherwise 4 mg every day Called and spoke to patient/caregiver Advised patient to take warfarin 6mg x2 days (11/13, 11/14) Next lab INR check scheduled on 11/15/2022 Patient verbalizes understanding of the plan. Patient denies need for refills. Arnulfo Duran RPh Clinical Pharmacist, Pharmacy Anticoagulation Clinic Pharmacy Anticoagulation Clinic Pager: [phone]. documented in this encounter [facility] 11-08-2022 Miscellaneous Notes Records received from OSH via [facility] [employer] and transferred to patient chart. Shelbie Santos RN Spoke to patient PCP office Dr Mayo Mendoza in [place]. Patient signed medical release form and it was faxed to PCP office at Dr Mendoza office number PCP phone: Patient gave us business card of cardiology department in [place] that he received treatment. Spoke to cardiology office and was told he has not been seen since 2014. Received fax number to send record request for the records they do have. Fx: [phone] Attempted to reach patient twice today to discuss obtaining medical records prior to appt. Contacted person at number listed and stated this number is invalid for the green party trying to be reached. We need updated contact information for this patient. Shelbie Santos RN documented in this encounter [facility] 11-06-2022 Note HNO ID: [id number] Author: Shelbie Santos RN Service: ? Author Type: Registered Nurse Type: Progress Notes Filed: 11/06/2022 2:36 PM Note Text: Opened in error. [facility] 11-06-2022 Miscellaneous Notes I have read and agree with recommendations of below. Alise Parsons RPh. Dear Dr. Lawson, Thank you for referring Kady Penny to the Anticoagulation Clinic for follow up. A pharmacist will see your patient for fingerstick INR testing and counseling. Please note: if at any time your patient does not agree to follow our recommendations for follow up care for managing their INR via POCT, home INR meter, or lab, they may be discharged back to your service for follow up. By this referral, we will be following your patient under the consult agreement policy between the Department of Pharmacy and member of the [facility]. Under this policy, you agree to maintain a clinical relationship with the patient as defined by Medicare as seeing the patient at least once a year in the outpatient setting. Our pharmacists will monitor your patient's anticoagulation therapy, adjust doses, order labs and prescriptions for warfarin/enoxaparin/Vitamin K as appropriate, and bill for our visits and lab tests listing you as the responsible referring physician. If for any reason you do not wish to continue working under this collaborative practice agreement or if the patient no longer continues in your care, please contact us to discontinue this service. Thank you for your referral, Anticoagulation Management Services New Referral Contact: Pharmacist Anticoagulation Clinic The patient was called to discuss recent referral to the Anticoagulation Clinic. Mode of contact: home phone Referral date: 11/05 Referring physician: Magno Lawson Indication: Afib Goal INR: 2-3 The expected duration of therapy is 6 months Preferred location for visits: Telemanagement Warfarin start date: unknown; patient's brother was a poor historian and stated he was not sure what his brother took daily. Noted patient recently moved from [place] Patient was previously instructed to take warfarin: 4mg daily Parenteral anticoagulant: No INR (no units) Date Value 11/05/2022 1.1 11/02/2022 1.1 Hemoglobin (g/dL) Date Value 11/02/2022 17.1 Hematocrit (%) Date Value 11/02/2022 50.0 WBC (k/uL) Date Value 11/02/2022 9.16 A/P: Spoke to brother who drives the patient. The patient: DOES agree to INR testing and consult agreement Patient scheduled for next INR Lab INR on this date: 11/07 Patient scheduled for [facility] on this date: n/a Patient declines the warfarin education video. Mode of learning: Not new to warfarin? Next Action for Anticoag Management: Lab 11/07 Patty Cantu RN documented in this encounter [facility] 11-06-2022 History of Present illness Narrative Opened in error. documented in this encounter [facility] 11-05-2022 Note HNO ID: [id number] Author: Magno Lawson MD Service: ? Author Type: Physician Type: Progress Notes Filed: 11/05/2022 1:48 PM Note Text: [facility] [place] SECTION OF REGIONAL CARDIOLOGY OUTPATIENT VISIT DATE November 05, 2022 PRIMARY CARE PHYSICIAN: To use this Smartlink, specify the provider ID whose address you want to display, e.g., .PaxeraADDR[1 (where 1 is the provider ID). REFERRING PHYSICIAN: Scot Melchor [id number] [facility] [id number] A written report of the findings and recommendations will be sent to the requesting provider via shared medical record or via [facility]. ASSESSMENT AND PLAN: Mr. Penny is a 77 year old male with PMH of: - Hypertension - ?CAD s/p CABG x2 more than 30 years ago in [place], last stent 2-3 years ago (he is unsure, records from [place] unavailable) - ?Atrial fibrillation for the last 10-15 yeras (he is unsure, records from [place] unavailable) - ?PAD s/p stents (he is unsure, records from [place] unavailable) - Tobacco use disorder 1 pack x 67 years - Obesity - Hypothyroidism Is here for consultation for atrial fibrillation Overall impression: PMH limited by complete absence of records. No medication list, no accurate history. It is unclear if he is on blood thinners and how long he has been in atrial fibrillation. Euvolemic on exam. Changes today: Request records from [place] and see him back in a month with medications in hand. No changes until then. Will order echo and INR (was on warfarin). Will refer to warfarin clinic. Will also refer to pulmnology for likely COPD (untreated) RTC: a month with medication bottles Likely persistent atrial fibrillation Unclear how long he has been in atrial fibrillation. [id number] vsac score of at least 4 (for CAD, hypertension and age) Plan: - Echo - Says he is on warfarin at home, will add an INR blood draw and refer to warfarin clini 2. ?CAD s/p CABG x2 more than 30 years ago in [place], last stent 2-3 years ago (he is unsure, records from [place] unavailable) ?PAD s/p stent Unclear if he is on a statin or aspirin. Requested patient to bring medications Lipid panel 3. Tobacco use disorder -- 70 pack year smoker Possible COPD -- exertional SOB and chronic cough Discussed smoking cessation Referral to pulmonology 4. Obesity Advised weight loss 5. Hypertension BP 138/60 in the office today Will defer making changes until home medication list is available I have personally reviewed the Electrocardiogram, Chest X-ray, and Laboratory Testing. Magno Lawson MD Cardiovascular disease staff November 05, 2022 12:55 PM HISTORY OF PRESENT ILLNESS: Mr. Penny is a 77 year old male with PMH as above was originally referred to cardiology for atrial fibrillation. Initial visit 11/05/2022: Kady presented tot he ED on 11/02/2022 for altered mental status, brought by police. HSTrop 33>32>35. He was found to be in atrial fibrillation and was given metoprolol 5 IV. He was not started on blood thinners because Kady was unsure if he is on blood thinners already. He is having exertional shortness of breath that has been stable for years, he can walk less than a block. He also has chronic productive cough. Never diagnosed with COPD. He has chronic swelling lower extremities He denies any chest pain, PND, orthopnea, palpitations, lightheadedness or syncope. Lives with his brother in [place], moved from [place] because his recently . REVIEW OF SYSTEMS: Negative with the exception of pertinent positives described in HPI PHYSICAL EXAMINATION: BP 138/60 Pulse 82 Ht 185.4 cm (6' 1 ) Wt 129.3 kg (285 lb) BMI 37.60 kg/m? GENERAL APPEARANCE: healthy, alert and no distress NECK: JVP not elevated RESPIRATORY: lungs clear to auscultation - CARDIOVASCULAR: irregular S1 and S2. No murmurs. EXTREMITIES: + edema bilateral extremities and hyperpigmentation CARDIOVASCULAR MEDICINE TESTING: I have personally reviewed the following lab and imaging tests: Last EKG Result Conclusion EKG Collected: 11/02/2022 1:18 AM (Preliminary result) Impression: ATRIAL FIBRILLATION WITH RAPID VENTRICULAR RESPONSE WITH PREMATURE VENTRICULAR OR ABERRANTLY CONDUCTED COMPLEXES RIGHT BUNDLE BRANCH BLOCK LEFT ANTERIOR FASCICULAR BLOCK BIFASCICULAR BLOCK LATERAL INFARCT , AGE UNDETERMINED ABNORMAL ECG EKG 11/05/2022 EKG 11/02/2022 Atrial fibrillation, RBBB, LAFB PMH: as above No past surgical history on file. Social History Tobacco Use Smoking status: Every Day Packs/day: 1 Types: Cigarettes Substance Use Topics Alcohol use: Never Drug use: Never No family history on file. ALLERGIES No Known Allergies CURRENT MEDICATIONS: No prescriptions on file. [facility] 11-05-2022 Miscellaneous Notes Addended by: MAGNO LAWSON on: 11/05/2022 01:49 PM Modules accepted: Orders documented in this encounter [facility] 11-05-2022 Instructions Magno Lawson MD - 11/05/2022 1:45 PM EDT Please bring all medication bottles with you next month documented in this encounter [facility] 11-05-2022 History of Present illness Narrative Images from the original note were not included. [facility] [place] SECTION OF REGIONAL CARDIOLOGY OUTPATIENT VISIT DATE November 05, 2022 PRIMARY CARE PHYSICIAN: To use this Smartlink, specify the provider ID whose address you want to display, e.g., .PROVADDR[1 (where 1 is the provider ID). REFERRING PHYSICIAN: Scot Melchor [id number] [facility] [id number] A written report of the findings and recommendations will be sent to the requesting provider via shared medical record or via [facility]. ASSESSMENT AND PLAN: Mr. Penny is a 77 year old male with PMH of: - Hypertension - ?CAD s/p CABG x2 more than 30 years ago in [place], last stent 2-3 years ago (he is unsure, records from [place] unavailable) - ?Atrial fibrillation for the last 10-15 yeras (he is unsure, records from [place] unavailable) - ?PAD s/p stents (he is unsure, records from [place] unavailable) - Tobacco use disorder 1 pack x 67 years - Obesity - Hypothyroidism Is here for consultation for atrial fibrillation Overall impression: PMH limited by complete absence of records. No medication list, no accurate history. It is unclear if he is on blood thinners and how long he has been in atrial fibrillation. Euvolemic on exam. Changes today: Request records from [place] and see him back in a month with medications in hand. No changes until then. Will order echo and INR (was on warfarin). Will refer to warfarin clinic. Will also refer to pulmnology for likely COPD (untreated) RTC: a month with medication bottles Likely persistent atrial fibrillation Unclear how long he has been in atrial fibrillation. [id number] vsac score of at least 4 (for CAD, hypertension and age) Plan: - Echo - Says he is on warfarin at home, will add an INR blood draw and refer to warfarin clini 2. ?CAD s/p CABG x2 more than 30 years ago in [place], last stent 2-3 years ago (he is unsure, records from [place] unavailable) ?PAD s/p stent Unclear if he is on a statin or aspirin. Requested patient to bring medications Lipid panel 3. Tobacco use disorder -- 70 pack year smoker Possible COPD -- exertional SOB and chronic cough Discussed smoking cessation Referral to pulmonology 4. Obesity Advised weight loss 5. Hypertension BP 138/60 in the office today Will defer making changes until home medication list is available I have personally reviewed the Electrocardiogram, Chest X-ray, and Laboratory Testing. Magno Lawson MD Cardiovascular disease staff November 05, 2022 12:55 PM HISTORY OF PRESENT ILLNESS: Mr. Penny is a 77 year old male with PMH as above was originally referred to cardiology for atrial fibrillation. Initial visit 11/05/2022: Kady presented tot he ED on 11/02/2022 for altered mental status, brought by police. HSTrop 33>32>35. He was found to be in atrial fibrillation and was given metoprolol 5 IV. He was not started on blood thinners because Kady was unsure if he is on blood thinners already. He is having exertional shortness of breath that has been stable for years, he can walk less than a block. He also has chronic productive cough. Never diagnosed with COPD. He has chronic swelling lower extremities He denies any chest pain, PND, orthopnea, palpitations, lightheadedness or syncope. Lives with his brother in [place], moved from [place] because his recently . REVIEW OF SYSTEMS: Negative with the exception of pertinent positives described in HPI PHYSICAL EXAMINATION: BP 138/60 Pulse 82 Ht 185.4 cm (6' 1 ) Wt 129.3 kg (285 lb) BMI 37.60 kg/m GENERAL APPEARANCE: healthy, alert and no distress NECK: JVP not elevated RESPIRATORY: lungs clear to auscultation - CARDIOVASCULAR: irregular S1 and S2. No murmurs. EXTREMITIES: + edema bilateral extremities and hyperpigmentation CARDIOVASCULAR MEDICINE TESTING: I have personally reviewed the following lab and imaging tests: Last EKG Result Conclusion EKG Collected: 11/02/2022 1:18 AM (Preliminary result) Impression: ATRIAL FIBRILLATION WITH RAPID VENTRICULAR RESPONSE WITH PREMATURE VENTRICULAR OR ABERRANTLY CONDUCTED COMPLEXES RIGHT BUNDLE BRANCH BLOCK LEFT ANTERIOR FASCICULAR BLOCK BIFASCICULAR BLOCK LATERAL INFARCT , AGE UNDETERMINED ABNORMAL ECG EKG 11/05/2022 EKG 11/02/2022 Atrial fibrillation, RBBB, LAFB PMH: as above No past surgical history on file. Social History Tobacco Use Smoking status: Every Day Packs/day: 1 Types: Cigarettes Substance Use Topics Alcohol use: Never Drug use: Never No family history on file. ALLERGIES No Known Allergies CURRENT MEDICATIONS: No prescriptions on file. documented in this encounter [facility] 10-20-2022 Note . MICRO - Microbiology PROCEDURE: Blood Culture (bacterial) [*1] SOURCE: Blood BODY SITE: COLLECTED DATE/TIME: 10/15/2022 14:55 EDT RECEIVED DATE/TIME: 10/15/2022 18:56 EDT START DATE/TIME: 10/15/2022 18:56 EDT FREE TEXT SOURCE: FINAL REPORTS Final Report [] Verified Date/Time/Personnel: 10/20/2022 18:59 EDT Blood Culture: No Growth at 5 days. PRELIMINARY REPORTS Preliminary Report [] Verified Date/Time/Personnel: 10/15/2022 19:59 EDT Culture has been received in lab and is no growth to date. Routine cultures are held for 5 days. Performing Locations *1: This test was performed at: [address], [address] [place] [address] ([place]) 10-20-2022 Note . MICRO - Microbiology PROCEDURE: Blood Culture (bacterial) [*1] SOURCE: Blood BODY SITE: COLLECTED DATE/TIME: 10/15/2022 14:55 EDT RECEIVED DATE/TIME: 10/15/2022 18:56 EDT START DATE/TIME: 10/15/2022 18:57 EDT FREE TEXT SOURCE: FINAL REPORTS Final Report [] Verified Date/Time/Personnel: 10/20/2022 18:59 EDT Blood Culture: No Growth at 5 days. PRELIMINARY REPORTS Preliminary Report [] Verified Date/Time/Personnel: 10/15/2022 19:59 EDT Culture has been received in lab and is no growth to date. Routine cultures are held for 5 days. 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- Primary Long-term (current) use of anticoagulants [facility] Diagnosis Longstanding persistent atrial fibrillation (HCC)- Primary snf (current) use of anticoagulants Long-term (current) use of anticoagulants [facility] Diagnosis Longstanding persistent atrial fibrillation (HCC)- Primary predatory animal exterminator (current) use of anticoagulants Long-term (current) use of anticoagulants [facility] Diagnosis Hypothyroidism, acquired- Primary Unspecified hypothyroidism Screening for diabetes mellitus Gait disturbance Abnormality of gait Weakness of both lower extremities Coronary artery disease involving kake heart without angina pectoris, unspecified vessel or lesion type PAD (peripheral artery disease) (HCC) Peripheral vascular disease, unspecified Longstanding persistent atrial fibrillation (HCC) Obesity, Class II, BMI 35-39.9 Obesity, unspecified snf (current) use of anticoagulants Long-term (current) use of anticoagulants [facility] Diagnosis Longstanding persistent atrial fibrillation (HCC)- Primary snf (current) use of anticoagulants Long-term (current) use of anticoagulants [facility] Diagnosis Longstanding persistent atrial fibrillation (HCC)- Primary predatory animal exterminator (current) use of anticoagulants Long-term (current) use of anticoagulants [facility] Diagnosis predatory animal exterminator (current) use of anticoagulants- Primary Long-term (current) use of anticoagulants [facility] Diagnosis Hypertension, essential- Primary Unspecified essential hypertension Benign prostatic hyperplasia, unspecified whether lower urinary tract symptoms present Coronary artery disease involving kake coronary artery of kake heart without angina pectoris Bacterial pneumonia Bacterial pneumonia, unspecified documented in this encounter [facility] Reason for Referral Specialty Diagnoses / Procedures Referred By Patel roth Referred To Contact Pulmonary and Critical Care Medicine Diagnoses SOB (shortness of breath) Tobacco use Procedures CONSULT TO PULM/CRITICAL CARE OFFICE/OUTPATIENT [facility] 60-[place] [address] [place] [address] Referral ID Status Reason Start Date Expiration Date Visits Requested Visits Authorized [id number] Pending Review PCP Requested Referral 11/05/2022 11/05/2023 1 1 Specialty Diagnoses / Procedures Referred By Patel roth Referred To Contact [facility] Diagnoses Paroxysmal atrial fibrillation (HCC) Procedures ECHO ECHO TTHRC R-T 2D W/WOM-MODE COMPL SPEC&[place] [address] [place] [address] [facility] [place] [address] [place] [id number] Referral ID Status Reason Start Date Expiration Date Visits Requested Visits Authorized [id number] Pending Review Auto-Generat ed Referral 11/05/2022 11/05/2023 1 1 Specialty Diagnoses / Procedures Referred By Contac t Referred To Contact [facility] Diagnoses Paroxysmal atrial fibrillation (HCC) Procedures ECG COMPLETE ECG ROUTINE ECG W/LEAST 12 LDS W/I&R Magno Lawson MD [address] [place] [address] [facility] [place] [address] [place] [address] Referral ID Status Reason Start Date Expiration Date Visits Requested Visits Authorized [id number] Pending Review Auto-Generat ed Referral 11/04/2022 11/04/2023 1 1 Specialty Diagnoses / Procedures Referred By Contac t Referred To Contact Diagnoses Gait disturbance Weakness of both lower extremities Coronary artery disease involving kake heart without angina pectoris, unspecified vessel or lesion type PAD (peripheral artery disease) (HCC) Procedures CONSULT TO [facility] Jie Bauer APRN.SOUND TECHNICIAN SUPERVISOR [address] [place] [address] [address] [place] [id number] Referral ID Status Reason Start Date Expiration Date Visits Requested Visits Authorized [id number] Authorized PCP Requested Referral 11/15/2022 02/13/2023 1 1 Summary Purpose Family History No Family History Records FoundNo Family History Records FoundNo Family History Records FoundNo Family History Records Found Advance Directives No Advanced Directives Records FoundNo Advanced Directives Records FoundNo Advanced Directives Records FoundNo Advanced Directives Records Found Additional Source Comments Source Comments (unrecognize d section and content) In the event this informatio n is protected by the Federal Confidentiality of Alcohol and Drug Abuse Patient Records regulations: The Federal rules restrict any use of the information to criminally investigate or prosecute any alcohol or drug abuse patient.[facility] the event this information is protected by the Federal Confidentiality of Alcohol and Drug Abuse Patient Records regulations: The Federal rules restrict any use of the information to criminally investigate or prosecute any alcohol or drug abuse patient.[facility] the event this information is protected by the Federal Confidentiality of Alcohol and Drug Abuse Patient Records regulations: The Federal rules restrict any use of the information to criminally investigate or prosecute any alcohol or drug abuse patient.[facility] the event this information is protected by the Federal Confidentiality of Alcohol and Drug Abuse Patient Records regulations: The Federal rules restrict any use of the information to criminally investigate or prosecute any alcohol or drug abuse patient.[facility] the event this information is protected by the Federal Confidentiality of Alcohol and Drug Abuse Patient Records regulations: The Federal rules restrict any use of the information to criminally investigate or prosecute any alcohol or drug abuse patient.[facility] the event this information is protected by the Federal Confidentiality of Alcohol and Drug Abuse Patient Records regulations: The Federal rules restrict any use of the information to criminally investigate or prosecute any alcohol or drug abuse patient.[facility] the event this information is protected by the Federal Confidentiality of Alcohol and Drug Abuse Patient Records regulations: The Federal rules restrict any use of the information to criminally investigate or prosecute any alcohol or drug abuse patient.[facility] the event this information is protected by the Federal Confidentiality of Alcohol and Drug Abuse Patient Records regulations: The Federal rules restrict any use of the information to criminally investigate or prosecute any alcohol or drug abuse patient.[facility] the event this information is protected by the Federal Confidentiality of Alcohol and Drug Abuse Patient Records regulations: The Federal rules restrict any use of the information to criminally investigate or prosecute any alcohol or drug abuse patient.[facility] the event this information is protected by the Federal Confidentiality of Alcohol and Drug Abuse Patient Records regulations: The Federal rules restrict any use of the information to criminally investigate or prosecute any alcohol or drug abuse patient.[facility] the event this information is protected by the Federal Confidentiality of Alcohol and Drug Abuse Patient Records regulations: The Federal rules restrict any use of the information to criminally investigate or prosecute any alcohol or drug abuse patient.[facility] the event this information is protected by the Federal Confidentiality of Alcohol and Drug Abuse Patient Records regulations: The Federal rules restrict any use of the information to criminally investigate or prosecute any alcohol or drug abuse patient.[facility] the event this information is protected by the Federal Confidentiality of Alcohol and Drug Abuse Patient Records regulations: The Federal rules restrict any use of the information to criminally investigate or prosecute any alcohol or drug abuse patient.[facility] the event this information is protected by the Federal Confidentiality of Alcohol and Drug Abuse Patient Records regulations: The Federal rules restrict any use of the information to criminally investigate or prosecute any alcohol or drug abuse patient.[facility] Reason for Visit (unrecogniz ed section and content) Specialty Diagnoses / Procedures Referred By Patel roth Referred To Contact Cardiology / CARDIOVASCULAR MEDICINE Diagnoses ED Follow Up - atrial fibraliation Procedures NEW/[place] [address] [place] [address] [place] [address] [place] [address] Referral ID Status Reason Start Date Expiration Date V isits Requested Visits Authorized [id number] Closed Financial Clearance Not Required 11/05/2022 02/03/2023 1 1 Reason Comments External Clinical Document Cardio notes Reason Comments Anticoagulation - Initial Consult Reason Onset Date Comments Anticoagulation Telephone Fu 11/12/2022 Lab INR Result Reason Comments ED Follow-up Specialty Diagnoses / Procedures Referred By Patel t Referred To Contact Family Medicine / FAMILY MEDICINE Diagnoses Atrial fibrillation (HCC) ED Follow Up - htn, atrial fib Procedures 4C NEW HOSP/[place] [address] [place] [address] Jie Bauer APRN.[facility] [address] [place] [address] Referral ID Status Reason Start Date Expiration Date Visits Requested Visits Authorized [id number] Closed Financial Clearance Required - OON Payor Patient Cleared - Admin/Change Management Manager/D irector advise to proceed or did not respond OON Notification Letter 11/15/2022 02/13/2023 1 1 Reason Comments Home Care Reason Comments Anticoagulation Telephone Fu Reason Onset Date Comments Anticoagulation Telephone Fu 12/26/2022 Lab INR Reason Comments Hospital F/U Specialty Diagnoses / Procedures Referred By Contac t Referred To Contact FAMILY MEDICINE Diagnoses Follow-up examination Hospital f/u Procedures Hospital f/u Jie Bauer, VIVIAN.SOUND TECHNICIAN SUPERVISOR [address] [place] [address] [facility] [address] [place] [address] Referral ID Status Reason Start Date Expiration Date V isits Requested Visits Authorized [id number] Closed OON/Self Pay Override 01/20/2023 03/16/2023 1 1 Care Teams (unrecognized sec tion and content) Mohs Surgeon/General Dermatologist Relationship Specialty Start Date End Date 13, Pharmacist [address] [place] [address] Pharmacist Pharmacy 11/06/22 Mohs Surgeon/General Dermatologist Relationship Specialty Start Date End Date 13, Pharmacist [address] [place] [address] Pharmacist Pharmacy 11/06/22 Mohs Surgeon/General Dermatologist Relationship Specialty Start Date End Date 13, Pharmacist [address] [place] [address] Pharmacist Pharmacy 11/06/22 Mohs Surgeon/General Dermatologist Relationship Specialty Start Date End Date 13, Pharmacist [address] [place] [address] Pharmacist Pharmacy 11/06/22 Mohs Surgeon/General Dermatologist Relationship Specialty Start Date End Date Jie Bauer APRN.SOUND TECHNICIAN SUPERVISOR [address] [place] [address] [phone] PCP - General Family Medicine 11/15/22 13, Pharmacist [address] [place] [address] Pharmacist Pharmacy 11/06/22 Mohs Surgeon/General Dermatologist Relationship Specialty Start Date End Date Jie Bauer, TURRET PRESS OPERATOR.SOUND TECHNICIAN SUPERVISOR [address] [place] [id number] PCP - General Family Medicine 11/15/22 13, Pharmacist [id number] [place] [address] Pharmacist Pharmacy 11/06/22 Mohs Surgeon/General Dermatologist Relationship Specialty Start Date End Date Jie Bauer, TURRET PRESS OPERATOR.SOUND TECHNICIAN SUPERVISOR [address] [place] [address] PCP - General Family Medicine 11/15/22 13, Pharmacist [address] [place] [address] Pharmacist Pharmacy 11/06/22 Mohs Surgeon/General Dermatologist Relationship Specialty Start Date End Date Jie Bauer, TURRET PRESS OPERATOR.SOUND TECHNICIAN SUPERVISOR [address] [place] [address] PCP - General Family Medicine 11/15/22 13, Pharmacist [address] [place] [address] Pharmacist Pharmacy 11/06/22 Mohs Surgeon/General Dermatologist Relationship Specialty Start Date End Date Jie Bauer, TURRET PRESS OPERATOR.SOUND TECHNICIAN SUPERVISOR [address] [place] [address] PCP - General Family Medicine 11/15/22 13, Pharmacist [address] [place] [address] Pharmacist Pharmacy 11/06/22 (unrecognized sect ion and content) No Status Records FoundNo Status Records FoundNo Status Records FoundNo Status Records Found INFORMATION SOURCE (unrecogn ized section and content) DATE CREATED AUTHOR AUTHOR'S ORGANIZ ATION 01/11/2023 [facility] DATE CREATED AUTHOR AUTHOR'S ORGANIZ ATION 01/12/2023 [facility] ([place]) DATE CREATED AUTHOR AUTHOR'S ORGANIZ ATION 02/22/2023 [facility] FOR RECORDS PERTAINING TO PATIENTS WHO ARE OR HAVE BEEN ENROLLED IN A CHEMICAL DEPENDENCY/SUBSTANCEABUSE PROGRAM, SOME INFORMATION MAY BE OMITTED. This clinical summary was aggregated from multiple sources. Caution should be exercised in using it in the provision of clinical care. This summary normalizes information from multiple sources, and as a consequence, information in this document may materially change the coding, format and clinical context of patient data. In addition, data may be omitted in some cases. CLINICAL DECISIONS SHOULD BE BASED ON THE PRIMARY CLINICAL RECORDS. [facility] [employer] [facility]. provides no warranty or guarantee of the accuracy or completeness of information in this document.
--- NOTE | 2023-03-12 19:30 | PCI.CARDCATH ---
PCI Cardiac Cath Report PCI Report: DATE OF PROCEDURE: 03/12/2023 PROCEDURES PERFORMED: 1. Left heart catheterization. 2. Selective left and right coronary angiography. 3. Selective GOULD angiogram and vein graft study 4. Moderate conscious sedation Indications FOR PROCEDURE: NSTEMI. Patient was seen for NSTEMI, patient is currently not having any chest pain. Echocardiogram showed normal ejection fraction Complications: NONE Specimen: NONE Access: Right common femoral artery Hemostasis: 5 Panamanian Mynx DESCRIPTION OF PROCEDURE: After informed consent was obtained, the patient was brought down to the laundry laborer in a fasting state. Right groin area was prepped, draped and sterilized in the usual fashion. Moderate conscious sedation, administration, documentation and physiologic monitoring of the IV conscious sedation was performed under my direct supervision by a trained registered nurse. Intraservice time started?at 14:37?and ended?at 15:14. Using ultrasound guidance, right common femoral artery was then cannulated. A 5-Panamanian sheath was inserted, sheath was flushed. JR4 catheter was used to engage the left subclavian artery and vein graft to RCA, it was also used to cross aortic valve, multiple hemodynamics were done obtain and JL-4 catheter was used to engage Left coronary artery. Multiple orthogonal images were then taken. JR4 catheter was used to cross the aortic valve. LV-gram was not done. . Pullback was done without any significant gradient across the aortic valve. After reviewing angiogram, decided on medical therapy for now as the patient is on only 1 antianginal therapy. Wire and catheter were taken out. 5 Panamanian Mynx was applied. The patient was sent to floor in stable condition. HEMODYNAMICS: Aortic pressure :? LVEDP: mmgh DESCRIPTION OF CORONARY ANATOMY: The left main originates from the left coronary sinus of Valsalva in the usual fashion. There was good reflux of dye from this vessel into the coronary sinus, there was no ventriculization or dampening of pressure noted.??The LM bifurcates into LAD and LCX . It has no significant CAD noted. The left anterior descending artery was flush occluded at the ostium. Left circumflex artery originates from the bifurcation in the usual fashion, then courses its way down the lateral atrioventricular groove, giving rise to 2 large-sized OM branches and continues distally as nondominant artery There was a 80% prox LCx stenosis which was heavily calcified just at proximal to the previously deployed stent, there was a long stent extending from the proximal left circumflex artery into into proximal OM1 which has diffuse 20% ISR Was unable to engage the RCA which appears to be flush occluded in the ostium Graft studies: GOULD to LAD was patent without any significant disease SVG to RCA had 80 to 90% stenosis in the mid part of it, 60-70% ISR in the mid to distal part of it. There was 80% diffuse stenosis in the proximal right PDA after the vein graft touchdown. CONCLUSION: 1. Patent GOULD to LAD. 2. 80% prox LCx stenosis which was heavily calcified just at proximal to the previously deployed stent 3. SVG to RCA had 80 to 90% stenosis in the mid part of it, 60-70% ISR in the mid to distal part of it. There was 80% diffuse stenosis in the proximal right PDA after the vein graft touchdown. RECOMMENDATION: Both of the above-mentioned lesions or complex, the left circumflex artery lesion but will require atherectomy or shockwave, the SVG to RCA lesion is also considered high risk, however patient is only on 1 antianginal therapy. He is currently chest pain-free with normal ejection fraction. Will add Imdur to the patient regimen as a second antianginal therapy. Continue with the aspirin and high intensity statin. Restart oral anticoagulation for stroke prophylaxis given the patient atrial fibrillation. Will continue to maximize medical therapy in the meantime, will consider staged PCI to the SVG to RCA and complex PCI to the proximal left circumflex artery as outpatient if patient continues to have chest pain. Please consider adding JESUS inhibitor if blood pressure allows
[2023-03-12] MEDS: Atorvastatin Calcium 40 MG Tablet PO (20:26)
[2023-03-13] VITALS (10 sets, daily range): BP systolic 130–148; BP diastolic 56–92; PULSE 56–79; RESP 12–22; TEMP 36.2–36.8; O2SAT 92–98; BMI 35.3
[2023-03-13 04:29] LABS: Absolute Lymphocyte Count 1.76 X10^3/uL (0.83-4.51); Basophil# 0.02 X10^3/uL; Basophil% 0.4 % (0-1); Eosinophil# 0.05 X10^3/uL; Eosinophils% 1.1 % (0-5); Hematocrit 48.2 % (40-54); Hemoglobin 15.7 g/dL (13.0-16.5); Lymphocyte # 1.76 X10^3/ul (0.83-4.51); Lymphocyte % 38.9 % (19-41); Mean Corp Hgb Conc 32.6 g/dL (32-36); Mean Corpuscular Hgb 29.8 pg (27.0-32.0); Mean Corpuscular Volume 91.6 fL (80-94); Mean Platelet Vol. 10.2 fl (6.2-12.0); Monocyte# 0.74 X10^3/uL; Monocyte% 16.3 % (0-10); NRBC Flagged by Analyzer 0 % (0-5); Neutrophil # 1.95 X10^3/uL (2.7-7.7); Neutrophil % 43.1 % (47-70); Platelet Count 109 K/mm3 (150-450); RBC Distribution Width CV 14.6 % (11.6-14.6); RBC Distribution Width SD 49.3 fl (35.1-43.9); Red Blood Count 5.26 M/mm3 (4.6-6.2); White Blood Count 4.5 K/mm3 (4.4-11.0)
[2023-03-13 04:46] LABS: Anion Gap 6 (5-15); BUN 22 mg/dL (7-18); BUN/Creat Ratio 26.9 RATIO (10-20); Calcium,Total 7.9 mg/dL (8.5-10.1); Chloride 105 mmol/L (98-107); Creatinine, Serum 0.82 mg/dL (0.70-1.30); EST Glomerular Filtration Rate 97 mL/min (>60); Est Glom Filt Rate - Afr Amer 118 mL/min (>60); Estimated Creatinine Clearance 86.61 ml/min; Glucose 89 mg/dL (74-106); Potassium 3.6 mmol/L (3.5-5.1); Sodium Level 140 mmol/L (136-145)
[2023-03-13] MEDS: Carvedilol 6.25 MG Tablet PO ×2 (08:39→21:07)
[2023-03-13] MEDS: Aspirin E.C. 81 MG Tablet PO (08:39)
[2023-03-13] MEDS: Lisinopril 10 MG Tablet PO (08:39)
--- NOTE | 2023-03-13 11:43 | PN.CARD_ITS ---
Subjective Subjective Patient was seen and examined today. Denied any chest pain, denied any shortness of breath while resting however he does have shortness of breath upon exertion. He is resting in his bed comfortably. Objective Data Vital Signs: Vital Signs Temp Pulse Resp BP Pulse Ox O2 Del Method O2 Flow Rate 97.1 F L 75 16 130/56 H 92 Room Air 2 03/13/23 08:31 03/13/23 08:31 03/13/23 08:31 03/13/23 08:31 03/13/23 10:31 03/13/23 10:31 03/13/23 02:00 FiO2 30 03/13/23 05:07 Oxygen Flow Rate (L/min) 2 Oxygen Delivery Method Room Air Weight: 267 lb 13.786 oz Body Mass Index (BMI) 35.3 Intake & Output: Intake and Output for Last 24 Hours 03/11/23 03/12/23 03/13/23 23:59 23:59 23:59 Intake Total 176.22 / 176.22 170.27 / 170.27 Output Total 775 / 1025 900 / 1450 750 / 750 Balance -598.78 / -848.78 -729.73 / -1279.73 -750 / -750 Lab / Micro Data 03/13/23 04:02 03/13/23 04:02 Labs: Laboratory Results - last 24 hr 03/13/23 04:02: WBC 4.5, RBC 5.26, Hgb 15.7, Hct 48.2, MCV 91.6, MCH 29.8, MCHC 32.6, RDW Std Deviation 49.3 H, RDW Coeff of Maria Victoria 14.6, Plt Count 109 L, MPV 10.2, Immature Gran % (Auto) 0.200, Neut % (Auto) 43.1 L, Lymph % (Auto) 38.9, [place] % (Auto) 16.3 H, Eos % (Auto) 1.1, Baso % (Auto) 0.4, Absolute Neuts (auto) 2.0, Absolute Lymphs (auto) 1.76, Nucleated RBC % 0, Sodium 140, Potassium 3.6, Chloride 105, Carbon Dioxide 29.0, Anion Gap 6, BUN 22 H, Creatinine 0.82, Estim Creat Clear Calc 86.61, Est GFR (MDRD) Af Amer 118, Est GFR (MDRD) Non-Af 97, BUN/Creatinine Ratio 26.9 H, Glucose 89, Calcium 7.9 L Rhythm Strip Rhythm Strip: A-fib Rate: 103 Ectopy: None Cardiology Labs/Tests 03/13/23 04:02: WBC 4.5, RBC 5.26, Hgb 15.7, Hct 48.2, MCV 91.6, MCH 29.8, MCHC 32.6, Plt Count 109 L, MPV 10.2, Immature Gran % (Auto) 0.200, Neut % (Auto) 43.1 L, Lymph % (Auto) 38.9, [place] % (Auto) 16.3 H, Eos % (Auto) 1.1, Baso % (Auto) 0.4, Absolute Neuts (auto) 2.0, Nucleated RBC % 0, Sodium 140, Potassium 3.6, Chloride 105, Carbon Dioxide 29.0, Anion Gap 6, BUN 22 H, Creatinine 0.82, Est GFR (MDRD) Af Amer 118, Est GFR (MDRD) Non-Af 97, BUN/Creatinine Ratio 26.9 H, Glucose 89, Calcium 7.9 L Rhythm: EKG: ECHO: Stress Test: Cardiac Cath: PCI: CT Surgery: Holter monitor: EPS: PPM: CXR: Chest CT Scan: Physical Exam Const alert and oriented x3 HEENT normocephalic Eyes PERRL and EOMs intact bilaterally Resp normal respiratory effort and clear to auscultation bilaterally Cardio regular rate, S1 normal heart sound and S2 normal heart sound Assessment & Plan Assessment/Plan (1) Elevated troponin: (2) Acute decompensated heart failure: PLAN: Plan Assessment: #1 acute decompensated heart failure. 2. Elevated troponin likely due to acute decompensated heart failure. 3. History of CAD status post CABG 4. Paroxysmal atrial fibrillation. 5. Thrombocytopenia #6 hypertension Plan Left heart catheterization showed patent GOULD to LAD, patent SVG to right PDA wi th 80% stenosis in the mid part of the vein graft also 70% ISR in the mid to distal, high-grade stenosis of the right PDA after the touchdown, also there was heavily calcified proximal left circumflex artery stenosis, however given the patient is only on 1 antianginal therapy which is Coreg, also the fact that he is not having any chest pain, normal ejection fraction, the presence of thrombocytopenia, we will go ahead and first maximize medical therapy prior to proceeding with complex intervention. He is currently chest pain-free with normal ejection fraction. Continue Coreg and lisinopril Will add Imdur to the patient regimen as a second antianginal therapy. Continue with the aspirin and high intensity statin. Restart oral anticoagulation for stroke prophylaxis given the patient atrial fi brillation. Recommend to add Lasix 40 mg daily for management of decompensated heart failure especially with significantly elevated LVEDP on left heart catheterization. Will continue to maximize medical therapy in the meantime, will consider staged PCI to the SVG to RCA and complex PCI to the proximal left circumflex artery as outpatient if patient develops chest pain despite being on maximal medical therapy. Will avoid triple therapy given his thrombocytopenia and high risk of bleed. Follow-up with cardiology as outpatient
--- NOTE | 2023-03-13 11:45 | CASEMGMT ---
Social Work Met with patient in room, introduced to self and social work role. Patient sitting in chair. Patient confirms would prefer to go to a nursing facility in [facility] if possible and confirms would prefer to be closer to his son. Patient also confirms utilize sentences decision-maker. Patient voices agreement for referral to be made to [facility]. This automobile and property underwriter has a list of both [place] and [facility] nursing facilities generated from [facility], to offer preferences and choices, but patient inpatient son are both voicing desire to have [facility] called. Updated discharge transit planning manager. Plan: pending senior care facility-referral to be sent to [facility]. -RICH Renteria, RADIATION ONCOLOGIST *This note was generated with [employer] dictation software. It may contain incorrect words, spelling, and punctuation that were not noted in review of the chart prior to signing*
--- NOTE | 2023-03-13 12:07 | CASEMGMT ---
Addendum entered by Ivonne Potter 03/13/23 16:16: Patient was declined by [facility] d/t being out of network with insurance provider. SW updated. Ivonne Potter, Discharge Planning Asst. Original Note: Discharge Planning Referral sent via [facility] to [facility]. Ivonne Potter, Discharge Planning Asst.
[2023-03-13] MEDS: Isosorbide Mononitrate 30 MG Tablet PO (13:32)
[2023-03-13] MEDS: APIXABAN 5 MG TABLET PO ×2 (13:33→21:07)
[2023-03-13] MEDS: Furosemide 40 MG Tablet PO (13:33)
--- NOTE | 2023-03-13 15:20 | PN.HOSP_ITS ---
Reason for Visit Reason for Visit: Diagnoses Non-ST elevation (NSTEMI) myocardial infarction (03/10/23) Atherosclerosis of coronary artery bypass graft(s) without angina pectoris (03/10/23) Heart failure, unspecified (03/10/23) Other specified abnormal findings of blood chemistry (03/10/23) Objective Data Objective Data Vital Signs: Vital Signs Temp Pulse Resp BP Pulse Ox O2 Del Method O2 Flow Rate 97.2 F L 79 16 135/65 H 94 Room Air 2 03/13/23 13:29 03/13/23 13:29 03/13/23 13:29 03/13/23 13:29 03/13/23 13:29 03/13/23 14:43 03/13/23 02:00 FiO2 30 03/13/23 05:07 Oxygen Flow Rate (L/min) 2 Oxygen Delivery Method Room Air Weight: 267 lb 13.786 oz Body Mass Index (BMI) 35.3 Intake & Output: Intake and Output for Last 24 Hours 03/11/23 03/12/23 03/13/23 23:59 23:59 23:59 Intake Total 176.22 / 176.22 170.27 / 170.27 Output Total 775 / 1025 900 / 1450 1050 / 1050 Balance -598.78 / -848.78 -729.73 / -1279.73 -1050 / -1050 Lab / Micro Data 03/13/23 04:02 03/13/23 04:02 Labs: Laboratory Results - last 24 hr 03/13/23 04:02: WBC 4.5, RBC 5.26, Hgb 15.7, Hct 48.2, MCV 91.6, MCH 29.8, MCHC 32.6, RDW Std Deviation 49.3 H, RDW Coeff of [place] 14.6, Plt Count 109 L, MPV 10.2, Immature Gran % (Auto) 0.200, Neut % (Auto) 43.1 L, Lymph % (Auto) 38.9, [place] % (Auto) 16.3 H, Eos % (Auto) 1.1, Baso % (Auto) 0.4, Absolute Neuts (auto) 2.0, Absolute Lymphs (auto) 1.76, Nucleated RBC % 0, Sodium 140, Potassium 3.6, Chloride 105, Carbon Dioxide 29.0, Anion Gap 6, BUN 22 H, Creatinine 0.82, Estim Creat Clear Calc 86.61, Est GFR (MDRD) Af Amer 118, Est GFR (MDRD) Non-Af 97, BUN/Creatinine Ratio 26.9 H, Glucose 89, Calcium 7.9 L Micro: Microbiology 03/10/23 11:39 Nasal Secretion SARS-CoV-2 & FLU Antigen (Rapid) - Final Rhythm Strip Rhythm Strip: A-fib Rate: 103 Ectopy: None Physical Exam Narrative Seen and examined. Patient looks mild short of breath on exertion, physically deconditioned. D enies chest pain. Physical exam General: Alert, Oriented x3, Cooperative HEENT: Atraumatic, PERRLA, EOMI, Normocephalic Oral: No Gingival or Mucosal Lesions/ Ulcerations Neck: Supple, No JVD, Negative Carotid Bruits Lungs: Air entry diminished in bilateral lung bases. No crepitation/rhonchi Cardiovascular: Regular rate, Regular Rhythm, Normal S1, Normal S2, no murmurs Abdomen: Bowel Sounds Present, Soft, Non Tender, Non-Distended : No renal angle tenderness. No suprapubic tenderness. Extremities: Chronic bilateral lower extremity nonpitting edema with fibrosis, Capillary Refill Less than 3 Seconds Skin: Chronic changes of lymphedema and venous edema. Musculoskeletal: No Tenderness to Palpation of Joints or Extremities. ROM restricted. Poor balance Neurological: Cranial nerves II-XII grossly intact, DTR 2+/4. No acute focal neurological deficit. Psych/Mental Status: Flat affect Assessment & Plan Assessment/Plan (1) Non-STEMI (non-ST elevated myocardial infarction): PLAN: Plan 1. Non-STEMI/CAD status post CABG Patient is being admitted in PCU. Patient is not very interactive and physically deconditioned. Public Relations Account Executive was consulted. Left heart cath which shows patent GOULD to LAD, SVG to right PDA with 80% stenosis in the mid part and 70% in the mid to distal. High-grade stenosis of right PDA after touchdown. Heavily calcified proximal left circumflex artery stenosis. Imdur was added on the top of Coreg. Continue lisinopril and high intensity statin. Eliquis started. Lasix 40 mg daily was started. Medical therapy and will need staged PCI to SVG to RCA and complex PCI to proximal left circumflex artery as outpatient. Follow-up in cardiology office. ? Echo with an EF of 55% cannot determine diastolic dysfunction still awaiting opinion from cardiology on whether to proceed with heart catheter just simply medical management 2. COMPA/morbid obesity ? BMI 35.7, discussed lifestyle modifications ? BiPAP as needed due to patient's family bring CPAP DVT: On Eliquis Charges/Coding Visit Charges Inpatient E&M: 98474 Subs Hosp L2
[2023-03-13] MEDS: Atorvastatin Calcium 40 MG Tablet PO (21:08)
[2023-03-14] VITALS (8 sets, daily range): BP systolic 109–169; BP diastolic 59–75; PULSE 55–78; RESP 12–25; TEMP 35.7–36.4; O2SAT 90–99; BMI 35.6
[2023-03-14 06:23] LABS: Absolute Lymphocyte Count 2.25 X10^3/uL (0.83-4.51); Absolute Neutrophil Count 1.4 X10^3/uL (2.0-7.7); Basophil# 0.02 X10^3/uL; Basophil% 0.5 % (0-1); Eosinophil# 0.07 X10^3/uL; Eosinophils% 1.6 % (0-5); Hematocrit 46.9 % (40-54); Lymphocyte # 2.25 X10^3/ul (0.83-4.51); Lymphocyte % 50.9 % (19-41); Mean Corpuscular Hgb 29.2 pg (27.0-32.0); Mean Corpuscular Volume 91.4 fL (80-94); Mean Platelet Vol. 10.8 fl (6.2-12.0); Monocyte# 0.64 X10^3/uL; Monocyte% 14.5 % (0-10); NRBC Flagged by Analyzer 0 % (0-5); Neutrophil # 1.43 X10^3/uL (2.7-7.7); Neutrophil % 32.3 % (47-70); Platelet Count 106 K/mm3 (150-450); RBC Distribution Width CV 14.3 % (11.6-14.6); RBC Distribution Width SD 48.2 fl (35.1-43.9); Red Blood Count 5.13 M/mm3 (4.6-6.2); White Blood Count 4.4 K/mm3 (4.4-11.0)
[2023-03-14 06:41] LABS: Anion Gap 6 (5-15); BUN 22 mg/dL (7-18); BUN/Creat Ratio 27.9 RATIO (10-20); Calcium,Total 7.8 mg/dL (8.5-10.1); Chloride 105 mmol/L (98-107); Creatinine, Serum 0.79 mg/dL (0.70-1.30); EST Glomerular Filtration Rate 101 mL/min (>60); Est Glom Filt Rate - Afr Amer 123 mL/min (>60); Estimated Creatinine Clearance 71.02 ml/min; Glucose 102 mg/dL (74-106); Potassium 3.4 mmol/L (3.5-5.1); Sodium Level 140 mmol/L (136-145)
--- NOTE | 2023-03-14 10:05 | CASEMGMT ---
SW called patient's son Sergio Varghese and let him know [facility] is not in network. SW went over the only other SNF in [facility] and then the 4 [place] facilities per patient's son's request (including star ratings). Patient's son requested referrals be sent to [facility] and [facility] as they had 3 and 4 stars. HILTON asked Ivonne to please send referrals. Lilian Gregory MAINSPRING FABRICATION SUPERVISORSerjio SERNA
[2023-03-14] MEDS: Carvedilol 6.25 MG Tablet PO ×2 (10:10→21:50)
[2023-03-14] MEDS: Aspirin E.C. 81 MG Tablet PO (10:10)
[2023-03-14] MEDS: Lisinopril 10 MG Tablet PO (10:11)
[2023-03-14] MEDS: Furosemide 40 MG Tablet PO (10:11)
[2023-03-14] MEDS: Isosorbide Mononitrate 30 MG Tablet PO (10:11)
[2023-03-14] MEDS: APIXABAN 5 MG TABLET PO ×2 (10:11→21:51)
--- NOTE | 2023-03-14 10:41 | CASEMGMT ---
Addendum entered by Ivonne Potter 03/14/23 14:20: Discharge Planning [facility] declined referral d/t being out of network. SW updated. Ivonne Potter, Discharge Planning Asst. Addendum entered by Ivonne Potter 03/14/23 10:58: Discharge Planning Patient declined by [facility] d/t no bed availability. Ivonne Potter, Discharge Planning Asst. Original Note: Discharge Planning Referral sent via [facility] to [facility] and [facility]. Ivonne Potter, Discharge Planning Asst.
--- NOTE | 2023-03-14 14:55 | PN.HOSP_ITS ---
Reason for Visit Reason for Visit: Diagnoses Non-ST elevation (NSTEMI) myocardial infarction (03/10/23) Atherosclerosis of coronary artery bypass graft(s) without angina pectoris (03/10/23) Heart failure, unspecified (03/10/23) Other specified abnormal findings of blood chemistry (03/10/23) Objective Data Objective Data Vital Signs: Vital Signs Temp Pulse Resp BP Pulse Ox O2 Del Method O2 Flow Rate 96.3 F L 65 18 126/69 H 97 Room Air 2 03/14/23 10:00 03/14/23 10:00 03/14/23 10:00 03/14/23 10:00 03/14/23 13:21 03/14/23 10:00 03/13/23 02:00 FiO2 30 03/14/23 07:46 Oxygen Flow Rate (L/min) 2 Oxygen Delivery Method Room Air Weight: 269 lb 13.533 oz Body Mass Index (BMI) 35.6 Intake & Output: Intake and Output for Last 24 Hours 03/12/23 03/13/23 03/14/23 23:59 23:59 23:59 Intake Total 170.27 / 170.27 380 / 380 600 / 600 Output Total 900 / 1450 1050 / 1050 350 / 350 Balance -729.73 / -1279.73 -670 / -670 250 / 250 Lab / Micro Data 03/14/23 05:56 03/14/23 05:56 Labs: Laboratory Results - last 24 hr 03/14/23 05:56: WBC 4.4, RBC 5.13, Hgb 15.0, Hct 46.9, MCV 91.4, MCH 29.2, MCHC 32.0, RDW Std Deviation 48.2 H, RDW Coeff of [place] 14.3, Plt Count 106 L, MPV 10.8, Immature Gran % (Auto) 0.200, Neut % (Auto) 32.3 L, Lymph % (Auto) 50.9 H, [place] % (Auto) 14.5 H, Eos % (Auto) 1.6, Baso % (Auto) 0.5, Absolute Neuts (auto) 1.4 L, Absolute Lymphs (auto) 2.25, Nucleated RBC % 0, Sodium 140, Potassium 3.4 L, Chloride 105, Carbon Dioxide 29.0, Anion Gap 6, BUN 22 H, Creatinine 0.79, Estim Creat Clear Calc 71.02, Est GFR (MDRD) Af Amer 123, Est GFR (MDRD) Non-Af 101, BUN/Creatinine Ratio 27.9 H, Glucose 102, Calcium 7.8 L Micro: Microbiology 03/10/23 11:39 Nasal Secretion SARS-CoV-2 & FLU Antigen (Rapid) - Final Rhythm Strip Rhythm Strip: A-fib Rate: 103 Ectopy: None Physical Exam Narrative Seen and examined. Patient looks mild short of breath on exertion, physically deconditioned. Denies chest pain. Patient on BiPAP at night. Physical exam General: Alert, Oriented x3, Cooperative HEENT: Atraumatic, PERRLA, EOMI, Normocephalic Oral: No Gingival or Mucosal Lesions/ Ulcerations Neck: Supple, No JVD, Negative Carotid Bruits Lungs: Air entry diminished in bilateral lung bases. No crepitation/rhonchi Cardiovascular: Irregular rhythm, Normal S1, Normal S2, systolic murmur over right second ICS Abdomen: Bowel Sounds Present, Soft, Non Tender, Non-Distended : No renal angle tenderness. No suprapubic tenderness. Extremities: Chronic bilateral lower extremity nonpitting edema with fibrosis, Capillary Refill Less than 3 Seconds Skin: Chronic changes of lymphedema and venous edema. Musculoskeletal: No Tenderness to Palpation of Joints or Extremities. ROM restricted. Poor balance Neurological: Cranial nerves II-XII grossly intact, DTR 2+/4. No acute focal neurological deficit. Psych/Mental Status: Flat affect Assessment & Plan Assessment/Plan (1) Non-STEMI (non-ST elevated myocardial infarction): PLAN: Plan 1. Non-STEMI/CAD status post CABG Patient is being admitted in PCU. Patient is not very interactive and physically deconditioned. Electronic Commerce Specialist was consulted. Left heart cath which s hows patent GOULD to LAD, SVG to right PDA with 80% stenosis in the mid part and 70% in the mid to distal. High-grade stenosis of right PDA after touchdown. Heavily calcified proximal left circumflex artery stenosis. Imdur was added on the top of Coreg. Continue lisinopril and high intensity statin. Eliquis started. Lasix 40 mg daily was started. Medical therapy and will need staged PCI to SVG to RCA and complex PCI to proximal left circumflex artery as outpatient. Echo with an EF of 55% 03/14: Patient is on furosemide, lisinopril, high intensity statin, Imdur and carvedilol. PT and OT. Plan for SNF. 2. COMPA/morbid obesity on BiPAP at night. ? BMI 35.7, discussed lifestyle modifications DVT: On Eliquis Charges/Coding Visit Charges Inpatient E&M: 73227 Subs Hosp L2
[2023-03-14] MEDS: Atorvastatin Calcium 40 MG Tablet PO (21:50)
[2023-03-15] VITALS (11 sets, daily range): BP systolic 94–170; BP diastolic 57–95; PULSE 70–100; RESP 12–33; TEMP 36.6–37.2; O2SAT 89–98; BMI 35.2
[2023-03-15 08:36] LABS: Absolute Lymphocyte Count 1.99 X10^3/uL (0.83-4.51); Absolute Neutrophil Count 11.9 X10^3/uL (2.0-7.7); Basophil# 0.03 X10^3/uL; Basophil% 0.2 % (0-1); Hematocrit 47.6 % (40-54); Hemoglobin 15.9 g/dL (13.0-16.5); Lymphocyte # 1.99 X10^3/ul (0.83-4.51); Lymphocyte % 13.3 % (19-41); Mean Corp Hgb Conc 33.4 g/dL (32-36); Mean Corpuscular Volume 89.8 fL (80-94); Mean Platelet Vol. 11.2 fl (6.2-12.0); Monocyte% 6.7 % (0-10); NRBC Flagged by Analyzer 0 % (0-5); Neutrophil # 11.85 X10^3/uL (2.7-7.7); Neutrophil % 79.3 % (47-70); Platelet Count 105 K/mm3 (150-450); RBC Distribution Width CV 14.1 % (11.6-14.6); RBC Distribution Width SD 46.6 fl (35.1-43.9)
[2023-03-15 08:48] LABS: Anion Gap 5 (5-15); BUN 17 mg/dL (7-18); BUN/Creat Ratio 18.7 RATIO (10-20); Calcium,Total 8.2 mg/dL (8.5-10.1); Chloride 104 mmol/L (98-107); Creatinine, Serum 0.91 mg/dL (0.70-1.30); EST Glomerular Filtration Rate 86 mL/min (>60); Est Glom Filt Rate - Afr Amer 104 mL/min (>60); Estimated Creatinine Clearance 78.05 ml/min; Glucose 143 mg/dL (74-106); Potassium 3.3 mmol/L (3.5-5.1); Sodium Level 137 mmol/L (136-145)
[2023-03-15] MEDS: Aspirin E.C. 81 MG Tablet PO (08:56)
[2023-03-15] MEDS: Lisinopril 10 MG Tablet PO (08:56)
[2023-03-15] MEDS: APIXABAN 5 MG TABLET PO ×2 (08:56→21:32)
[2023-03-15] MEDS: Carvedilol 6.25 MG Tablet PO ×2 (08:57→21:32)
[2023-03-15] MEDS: Isosorbide Mononitrate 30 MG Tablet PO (08:57)
[2023-03-15] MEDS: Furosemide 40 MG Tablet PO (08:57)
[2023-03-15 09:02] LABS: Magnesium 1.8 mg/dL (1.6-2.6); Phosphorus 3.2 mg/dL (2.5-4.9)
--- NOTE | 2023-03-15 09:55 | PN.HOSP_ITS ---
Reason for Visit Reason for Visit: Diagnoses Non-ST elevation (NSTEMI) myocardial infarction (03/10/23) Atherosclerosis of coronary artery bypass graft(s) without angina pectoris (03/10/23) Heart failure, unspecified (03/10/23) Other specified abnormal findings of blood chemistry (03/10/23) Objective Data Objective Data Vital Signs: Vital Signs Temp Pulse Resp BP Pulse Ox O2 Del Method O2 Flow Rate 98.1 F 83 16 132/61 H 93 Nasal Cannula 2 03/15/23 08:56 03/15/23 08:56 03/15/23 08:56 03/15/23 08:56 03/15/23 08:56 03/15/23 08:56 03/15/23 08:56 FiO2 30 03/15/23 04:00 Oxygen Flow Rate (L/min) 2 Oxygen Delivery Method Nasal Cannula Weight: 266 lb 12.149 oz Body Mass Index (BMI) 35.2 Intake & Output: Intake and Output for Last 24 Hours 03/13/23 03/14/23 03/15/23 23:59 23:59 23:59 Intake Total 380 / 380 830 / 830 0 / 0 Output Total 1050 / 1050 350 / 350 Balance -670 / -670 480 / 480 0 / 0 Lab / Micro Data 03/15/23 08:00 03/15/23 08:00 Labs: Laboratory Results - last 24 hr 03/15/23 08:00: WBC 15.0 H, RBC 5.30, Hgb 15.9, Hct 47.6, MCV 89.8, MCH 30.0, MCHC 33.4, RDW Std Deviation 46.6 H, RDW Coeff of [place] 14.1, Plt Count 105 L, MPV 11.2, Immature Gran % (Auto) 0.500, Neut % (Auto) 79.3 H, Lymph % (Auto) 13.3 L, [place] % (Auto) 6.7, Eos % (Auto) 0.0, Baso % (Auto) 0.2, Absolute Neuts (auto) 11.9 H, Absolute Lymphs (auto) 1.99, Nucleated RBC % 0, Sodium 137, Potassium 3.3 L, Chloride 104, Carbon Dioxide 28.0, Anion Gap 5, BUN 17, Creatinine 0.91, Estim Creat Clear Calc 78.05, Est GFR (MDRD) Af Amer 104, Est GFR (MDRD) Non-Af 86, BUN/Creatinine Ratio 18.7, Glucose 143 H, Calcium 8.2 L, Phosphorus 3.2, Magnesium 1.8 Micro: Microbiology 03/10/23 11:39 Nasal Secretion SARS-CoV-2 & FLU Antigen (Rapid) - Final Rhythm Strip Rhythm Strip: A-fib Rate: 103 Ectopy: None Physical Exam Narrative Seen and examined. Patient looks mild short of breath on exertion, physically deconditioned. He denies any worsening or improvement or shortness of breath. Denies chest pain. Patient on BiPAP at night. Physical exam General: Alert, Oriented x3, Cooperative HEENT: Atraumatic, PERRLA, EOMI, Normocephalic Oral: No Gingival or Mucosal Lesions/ Ulcerations Neck: Supple, No JVD, Negative Carotid Bruits Lungs: Air entry diminished in bilateral lung bases. No crepitation/rhonchi Cardiovascular: Irregular rhythm, Normal S1, Normal S2, systolic murmur over right second ICS Abdomen: Bowel Sounds Present, Soft, Non Tender, Non-Distended : No renal angle tenderness. No suprapubic tenderness. Extremities: Chronic bilateral lower extremity nonpitting edema with fibrosis, Capillary Refill Less than 3 Seconds Skin: Chronic changes of lymphedema and venous edema. Musculoskeletal: No Tenderness to Palpation of Joints or Extremities. ROM restricted. Poor balance Neurological: Cranial nerves II-XII grossly intact, DTR 2+/4. No acute focal neurological deficit. Psych/Mental Status: Flat affect Assessment & Plan Assessment/Plan (1) Non-STEMI (non-ST elevated myocardial infarction): PLAN: Plan 1. Non-STEMI/CAD status post CABG Patient is being admitted in PCU. Patient is not very interactive and physically deconditioned. International Editorial Producer was consulted. Left heart cath which shows patent GOULD to LAD, SVG to right PDA with 80% stenosis in the mid part and 70% in the mid to distal. High-grade stenosis of right PDA after touchdown. H eavily calcified proximal left circumflex artery stenosis. Imdur was added on the top of Coreg. Continue lisinopril and high intensity statin. Eliquis started. Lasix 40 mg daily was started. Medical therapy and will need staged PCI to SVG to RCA and complex PCI to proximal left circumflex artery as outpatient. Echo with an EF of 55% 03/14: Patient is on furosemide, lisinopril, high intensity statin, Imdur and carvedilol. PT and OT. Plan for SNF. 03/15: quality assurance monitor body shows about 4 beats of NSVT and artifacts. No chest pain or shortness of breath. Serum potassium 3.3. Serum magnesium 1.8. Phosphorus 3.2. Patient is started on spironolactone 25 mg daily to compensate for hypoka lemia. Magnesium chloride 128 mg twice daily. 2. COMPA/morbid obesity on BiPAP at night. ? BMI 35.7, discussed lifestyle modifications DVT: On Eliquis Charges/Coding Visit Charges Inpatient E&M: 84738 Subs Hosp L2
[2023-03-15] MEDS: Magnesium Chloride 64 MG Delay Rel.Tablet 128 MG PO ×2 (10:50→22:00)
[2023-03-15] MEDS: Spironolactone 25 MG Tablet PO (10:51)
--- NOTE | 2023-03-15 11:57 | CASEMGMT ---
Social Work SW called son, explained that [facility] has said they are not in network, and [place] is full. SW inquired if he had any other places in mind for SW to send referral. He states any place in [facility] or around [place] is fine. SW explained that SW/d/c materials planner/production planner will send additional referrals Friday. SW to follow up on Friday. RICH Shi
[2023-03-15] MEDS: Atorvastatin Calcium 40 MG Tablet PO (21:32)
[2023-03-16] VITALS (9 sets, daily range): BP systolic 120–149; BP diastolic 56–70; PULSE 68–84; RESP 12–24; TEMP 36.6; O2SAT 86–96; BMI 34.7
--- NOTE | 2023-03-16 07:41 | PN.HOSP_ITS ---
Reason for Visit Reason for Visit: Diagnoses Non-ST elevation (NSTEMI) myocardial infarction (03/10/23) Atherosclerosis of coronary artery bypass graft(s) without angina pectoris (03/10/23) Heart failure, unspecified (03/10/23) Other specified abnormal findings of blood chemistry (03/10/23) Objective Data Objective Data Vital Signs: Vital Signs Temp Pulse Resp BP Pulse Ox O2 Del Method O2 Flow Rate 98 F 82 23 H 130/56 H 93 Bi-pap 2 03/16/23 02:54 03/16/23 07:05 03/16/23 07:05 03/16/23 02:54 03/16/23 07:05 03/16/23 07:05 03/15/23 15:00 FiO2 30 03/16/23 07:05 Oxygen Flow Rate (L/min) 2 Oxygen Delivery Method Bi-pap Weight: 263 lb 10.766 oz Body Mass Index (BMI) 34.7 Intake & Output: Intake and Output for Last 24 Hours 03/14/23 03/15/23 03/16/23 23:59 23:59 23:59 Intake Total 830 / 830 860 / 860 0 / 0 Output Total 350 / 350 550 / 550 150 / 150 Balance 480 / 480 310 / 310 -150 / -150 Lab / Micro Data 03/15/23 08:00 03/15/23 08:00 Labs: Laboratory Results - last 24 hr 03/15/23 08:00: WBC 15.0 H, RBC 5.30, Hgb 15.9, Hct 47.6, MCV 89.8, MCH 30.0, MCHC 33.4, RDW Std Deviation 46.6 H, RDW Coeff of [place] 14.1, Plt Count 105 L, MPV 11.2, Immature Gran % (Auto) 0.500, Neut % (Auto) 79.3 H, Lymph % (Auto) 13.3 L, [place] % (Auto) 6.7, Eos % (Auto) 0.0, Baso % (Auto) 0.2, Absolute Neuts (auto) 11.9 H, Absolute Lymphs (auto) 1.99, Nucleated RBC % 0, Sodium 137, Potassium 3.3 L, Chloride 104, Carbon Dioxide 28.0, Anion Gap 5, BUN 17, Creatinine 0.91, Estim Creat Clear Calc 78.05, Est GFR (MDRD) Af Amer 104, Est GFR (MDRD) Non-Af 86, BUN/Creatinine Ratio 18.7, Glucose 143 H, Calcium 8.2 L, Phosphorus 3.2, Magnesium 1.8 Micro: Microbiology 03/10/23 11:39 Nasal Secretion SARS-CoV-2 & FLU Antigen (Rapid) - Final Rhythm Strip Rhythm Strip: A-fib Rate: 103 Ectopy: None Physical Exam Narrative Seen and examined. Patient is same like yesterday. Patient seen coughing some yellowish phlegm.Patient also had leukocytosis 15,000. Patient looks mild short of breath on exertion, physically deconditioned. He denies any worsening or improvement or shortness of breath. Denies chest pain. Patient on BiPAP at night. Physical exam General: Alert, Oriented x3, Cooperative HEENT: Atraumatic, PERRLA, EOMI, Normocephalic Oral: No Gingival or Mucosal Lesions/ Ulcerations Neck: Supple, No JVD, Negative Carotid Bruits Lungs: Air entry diminished in bilateral lung bases. Mild bilateral coarse crepitations. Mild shortness of breath. Cardiovascular: Irregular rhythm, Normal S1, Normal S2, systolic murmur over right second ICS Abdomen: Bowel Sounds Present, Soft, Non Tender, Non-Distended : No renal angle tenderness. No suprapubic tenderness. Extremities: Chronic bilateral lower extremity nonpitting edema with fibrosis, Capillary Refill Less than 3 Seconds Skin: Chronic changes of lymphedema and venous edema. Musculoskeletal: No Tenderness to Palpation of Joints or Extremities. ROM restricted. Poor balance Neurological: Cranial nerves II-XII grossly intact, DTR 2+/4. No acute focal neurological deficit. Psych/Mental Status: Flat affect Assessment & Plan Assessment/Plan (1) Non-STEMI (non-ST elevated myocardial infarction): PLAN: Plan 1. Non-STEMI/CAD status post CABG Patient is being admitted in PCU. Patient is not very interactive and physically deconditioned. Superintendent [employer] was consulted. Left heart cath which sh ows patent GOULD to LAD, SVG to right PDA with 80% stenosis in the mid part and 70% in the mid to distal. High-grade stenosis of right PDA after touchdown. Heavily calcified proximal left circumflex artery stenosis. Imdur was added on the top of Coreg. Continue lisinopril and high intensity statin. Eliquis started. Lasix 40 mg daily was started. Medical therapy and will need staged PCI to SVG to RCA and complex PCI to proximal left circumflex artery as outpatient. Echo with an EF of 55% 03/14: Patient is on furosemide, lisinopril, high intensity statin, Imdur and carvedilol. PT and OT. Plan for SNF. 03/15: manager monitoring shows about 4 beats of NSVT and artifacts. No chest pain or shortness of breath. Serum potassium 3.3. Serum magnesium 1.8. Phosphorus 3.2. Patient is started on spironolactone 25 mg daily to compensate for hypokalemia. Magnesium chloride 128 mg twice daily. 03/16: Chest x-ray PA and lateral was done but seems AP and lateral was done. No obvious heart significant changes seen, no acute infiltrate or consolidation. Patient might have acute bronchitis. Patient had negative rapid COVID and flu antigen test. Repeat COVID flu RSV PCR ordered. Urinary antigens ordered. Recommend outpatient pulmonary follow-up with PFT and sleep study. As examined cough purulent sputum and wheezing/crepitations. Started on Augmentin 875 mg p.o. twice daily, incentive spirometry and chest physiotherapy. Bronchodilator as needed 2. COMPA/morbid obesity on BiPAP at night. ? BMI 35.7, discussed lifestyle modifications DVT: On Eliquis Charges/Coding Visit Charges Inpatient E&M: 16163 Subs Hosp L2
--- NOTE | 2023-03-16 08:22 | RAD_ITS ---
STUDY: X-RAY CHEST REASON FOR EXAM: Male, 77 years old. productve cough TECHNIQUE: PA and lateral views of the chest. COMPARISON: 03/11/2023 FINDINGS: Status post median sternotomy. Alveolar opacity in the lower left lung consistent with left lower lobe pneumonia or atelectasis. There is no demonstrated pleural abnormality. There is moderate cardiac enlargement. Normal mediastinum and shaun. Normal visualized pulmonary arteries. Normal visualized aortic arch and descending thoracic aorta. Normal visualized thoracic spine. Normal visualized ribs, clavicles, and shoulders. There is no demonstrated abnormality of the visualized soft tissue structures of the upper abdomen. RAD/Chest PA and Lateral IMPRESSION: Left lower lobe pneumonia or atelectasis. Cardiomegaly. Electronically Signed: Casimiro Berman MD at 17:06 EST ,
[2023-03-16] MEDS: Spironolactone 25 MG Tablet PO (09:10)
[2023-03-16] MEDS: APIXABAN 5 MG TABLET PO ×2 (09:10→20:50)
[2023-03-16] MEDS: Aspirin E.C. 81 MG Tablet PO (09:11)
[2023-03-16] MEDS: Magnesium Chloride 64 MG Delay Rel.Tablet 128 MG PO ×2 (09:11→20:49)
[2023-03-16] MEDS: Isosorbide Mononitrate 30 MG Tablet PO (09:11)
[2023-03-16] MEDS: Lisinopril 10 MG Tablet PO (09:11)
[2023-03-16] MEDS: Carvedilol 6.25 MG Tablet PO ×2 (09:11→20:48)
[2023-03-16] MEDS: Furosemide 40 MG Tablet PO (09:12)
[2023-03-16] MEDS: Amox/Clavulanate 875 MG Tablet PO ×2 (12:49→20:48)
[2023-03-16] MEDS: Atorvastatin Calcium 40 MG Tablet PO (20:49)
[2023-03-17] VITALS (12 sets, daily range): BP systolic 110–145; BP diastolic 59–76; PULSE 50–96; RESP 12–24; TEMP 36.4–36.7; O2SAT 93–98; BMI 34.7
[2023-03-17 06:43] LABS: Absolute Lymphocyte Count 2.14 X10^3/uL (0.83-4.51); Absolute Neutrophil Count 6.1 X10^3/uL (2.0-7.7); Basophil# 0.04 X10^3/uL; Basophil% 0.4 % (0-1); Eosinophil# 0.08 X10^3/uL; Eosinophils% 0.9 % (0-5); Hematocrit 45.2 % (40-54); Hemoglobin 14.6 g/dL (13.0-16.5); Lymphocyte # 2.14 X10^3/ul (0.83-4.51); Lymphocyte % 23.6 % (19-41); Mean Corp Hgb Conc 32.3 g/dL (32-36); Mean Corpuscular Hgb 29.6 pg (27.0-32.0); Mean Corpuscular Volume 91.5 fL (80-94); Mean Platelet Vol. 11.9 fl (6.2-12.0); Monocyte# 0.71 X10^3/uL; Monocyte% 7.8 % (0-10); NRBC Flagged by Analyzer 0 % (0-5); Neutrophil # 6.07 X10^3/uL (2.7-7.7); Neutrophil % 66.9 % (47-70); Platelet Count 105 K/mm3 (150-450); RBC Distribution Width CV 14.6 % (11.6-14.6); RBC Distribution Width SD 48.7 fl (35.1-43.9); Red Blood Count 4.94 M/mm3 (4.6-6.2); White Blood Count 9.1 K/mm3 (4.4-11.0)
[2023-03-17 07:05] LABS: Anion Gap 6 (5-15); BUN 19 mg/dL (7-18); BUN/Creat Ratio 25.9 RATIO (10-20); Calcium,Total 8.6 mg/dL (8.5-10.1); Chloride 105 mmol/L (98-107); Creatinine, Serum 0.73 mg/dL (0.70-1.30); EST Glomerular Filtration Rate 110 mL/min (>60); Est Glom Filt Rate - Afr Amer 133 mL/min (>60); Estimated Creatinine Clearance 71.02 ml/min; Glucose 92 mg/dL (74-106); Potassium 3.4 mmol/L (3.5-5.1); Sodium Level 140 mmol/L (136-145)
[2023-03-17] MEDS: Carvedilol 6.25 MG Tablet PO (09:00)
[2023-03-17] MEDS: Isosorbide Mononitrate 30 MG Tablet PO (09:01)
[2023-03-17] MEDS: APIXABAN 5 MG TABLET PO ×2 (09:01→20:59)
[2023-03-17] MEDS: Amox/Clavulanate 875 MG Tablet PO (09:01)
[2023-03-17] MEDS: Spironolactone 25 MG Tablet PO ×2 (09:01→11:20)
[2023-03-17] MEDS: Furosemide 40 MG Tablet PO (09:02)
[2023-03-17] MEDS: Aspirin E.C. 81 MG Tablet PO (09:02)
[2023-03-17] MEDS: Magnesium Chloride 64 MG Delay Rel.Tablet 128 MG PO ×2 (09:02→20:59)
[2023-03-17] MEDS: Lisinopril 10 MG Tablet PO (09:02)
--- NOTE | 2023-03-17 10:38 | PCM.PN.HOSP ---
Reason for Visit Reason for Visit: Diagnoses Non-ST elevation (NSTEMI) myocardial infarction (03/10/23) Atherosclerosis of coronary artery bypass graft(s) without angina pectoris (03/10/23) Heart failure, unspecified (03/10/23) Other specified abnormal findings of blood chemistry (03/10/23) Objective Data Objective Data Vital Signs: Vital Signs Temp Pulse Resp BP Pulse Ox O2 Del Method O2 Flow Rate 97.6 F L 63 18 130/76 H 98 Nasal Cannula 3 03/17/23 09:00 03/17/23 09:00 03/17/23 09:00 03/17/23 09:00 03/17/23 09:00 03/17/23 09:00 03/17/23 09:00 FiO2 30 03/17/23 07:46 Oxygen Flow Rate (L/min) 3 Oxygen Delivery Method Nasal Cannula Weight: 263 lb 0.183 oz Body Mass Index (BMI) 34.7 Intake & Output: Intake and Output for Last 24 Hours 03/15/23 03/16/23 03/17/23 23:59 23:59 23:59 Intake Total 860 / 860 1300 / 1300 Output Total 550 / 550 300 / 300 0 / 0 Balance 310 / 310 1000 / 1000 0 / 0 Lab / Micro Data 03/17/23 06:00 03/17/23 06:00 Labs: Laboratory Results - last 24 hr 03/17/23 06:00: WBC 9.1, RBC 4.94, Hgb 14.6, Hct 45.2, MCV 91.5, MCH 29.6, MCHC 32.3, RDW Std Deviation 48.7 H, RDW Coeff of [place] 14.6, Plt Count 105 L, MPV 11.9, Immature Gran % (Auto) 0.400, Neut % (Auto) 66.9, Lymph % (Auto) 23.6, [place] % (Auto) 7.8, Eos % (Auto) 0.9, Baso % (Auto) 0.4, Absolute Neuts (auto) 6.1, Absolute Lymphs (auto) 2.14, Nucleated RBC % 0, Sodium 140, Potassium 3.4 L, Chloride 105, Carbon Dioxide 29.0, Anion Gap 6, BUN 19 H, Creatinine 0.73, Estim Creat Clear Calc 71.02, Est GFR (MDRD) Af Amer 133, Est GFR (MDRD) Non-Af 110, BUN/Creatinine Ratio 25.9 H, Glucose 92, Calcium 8.6 Micro: Microbiology 03/17/23 09:18 Urine, Clean Catch Legionella Antigen - Final 03/17/23 09:18 Urine, Clean Catch Streptococcus pneumoniae Antigen (M - Final Streptococcus pneumonia Ag 03/17/23 01:35 Mucosa - Nasopharyngeal RSV RNA Qualitative (PCR) - Final 03/17/23 02:35 Nasal Secretion SARS-CoV-2 & FLU Antigen (Rapid) - Final 03/10/23 11:39 Nasal Secretion SARS-CoV-2 & FLU Antigen (Rapid) - Final Radiography Diagnostic Testing: Radiology Impression Chest X-Ray 03/16/23 08:22 IMPRESSION: Left lower lobe pneumonia or atelectasis. Cardiomegaly. Electronically Signed: Casimiro Berman MD at 17:06 EST Reading Location ID and State: [address] [place] [address] Tel , Service support , Rhythm Strip Rhythm Strip: A-fib Rate: 103 Ectopy: None Physical Exam Narrative Seen and examined. Still coughing mild yellowish phlegm. Leukocytosis resolved from 15,000-9000.. Patient seen coughing some yellowish phlegm. Patient looks mild short of breath on exertion, physically deconditioned. Denies chest pain. Patient on BiPAP at night. Physical exam General: Alert, Oriented x3, Cooperative, sitting upright. HEENT: Atraumatic, PERRLA, EOMI, Normocephalic Oral: No Gingival or Mucosal Lesions/ Ulcerations Neck: Supple, No JVD, Negative Carotid Bruits Lungs: Air entry diminished in bilateral lung bases. Mild bilateral coarse crepitations. Shallow breathing. Cardiovascular: Irregular rhythm, Normal S1, Normal S2, systolic murmur over right second ICS Abdomen: Bowel Sounds Present, Soft, Non Tender, Non-Distended : No renal angle tenderness. No suprapubic tenderness. Extremities: Chronic bilateral lower extremity nonpitting edema with fibrosis, Capillary Refill Less than 3 Seconds Skin: Chronic changes of lymphedema and venous edema. Musculoskeletal: No Tenderness to Palpation of Joints or Extremities. ROM restricted. Poor balance Neurological: Cranial nerves II-XII grossly intact, DTR 2+/4. No acute focal neurological deficit. Psych/Mental Status: Flat affect Assessment & Plan Assessment/Plan (1) Non-STEMI (non-ST elevated myocardial infarction): PLAN: Plan 1. Non-STEMI/CAD status post CABG Patient is being admitted in PCU. Patient is not very interactive and physically deconditioned. Estate Planning Attorney was consulted. Left heart cath which shows patent [place] to LAD, SVG to right PDA with 80% stenosis in the mid part and 70% in the mid to distal. High-grade stenosis of right PDA after touchdown. Heavily calcified proximal left circumflex artery stenosis. Imdur was added on the top of Coreg. Continue lisinopril and high intensity statin. Eliquis started. Lasix 40 mg daily was started. Medical therapy and will need staged PCI to SVG to RCA and complex PCI to proximal left circumflex artery as outpatient. Echo with an EF of 55% 03/14: Patient is on furosemide, lisinopril, high intensity statin, Imdur and carvedilol. PT and OT. Plan for SNF. 03/15: nuclear monitoring technician shows about 4 beats of NSVT and artifacts. No chest pain or shortness of breath. Serum potassium 3.3. Serum magnesium 1.8. Phosphorus 3.2. Patient is started on spironolactone 25 mg daily to compensate for hypokalemia. Magnesium chloride 128 mg twice daily. 03/17: Potassium 3.4. Spironolactone dose increased to 50 mg daily. Continue furosemide 40 g daily. Left lower lobe pneumonia 03/16: Chest x-ray PA and lateral was done but seems AP and lateral was done. Left lung base not clear. Patient might have acute bronchitis/pneumonia. Patient had negative rapid COVID and flu antigen test. Repeat COVID flu RSV PCR ordered. Urinary antigens ordered. Recommend outpatient pulmonary follow-up with PFT and sleep study. 03/17: Augmentin was started yesterday and patient responded well. Leukocytosis resolved. No fever. Chest x-ray individually reviewed and shows left lower lung as alert opacity/infiltrate. Urinary antigen positive for Streptococcus therefore antibiotic changed to IV ceftriaxone 2 g daily. Continue incentive spirometry and PEP. Bronchodilator DuoNeb every 6 hourly. 2. COMPA/morbid obesity on BiPAP at night. ? BMI 35.7, discussed lifestyle modifications DVT: On Eliquis Microbiology Past 72 Hours 03/17/23 09:18 Urine, Clean Catch Legionella Antigen - Final 03/17/23 09:18 Urine, Clean Catch Streptococcus pneumoniae Antigen (M - Final Streptococcus pneumonia Ag 03/17/23 01:35 Mucosa - Nasopharyngeal RSV RNA Qualitative (PCR) - Final 03/17/23 02:35 Nasal Secretion SARS-CoV-2 & FLU Antigen (Rapid) - Final Laboratory Results 03/17/23 06:00: WBC 9.1, RBC 4.94, Hgb 14.6, Hct 45.2, MCV 91.5, MCH 29.6, MCHC 32.3, RDW Std Deviation 48.7 H, RDW Coeff of [place] 14.6, Plt Count 105 L, MPV 11.9, Immature Gran % (Auto) 0.400, Neut % (Auto) 66.9, Lymph % (Auto) 23.6, [place] % (Auto) 7.8, Eos % (Auto) 0.9, Baso % (Auto) 0.4, Absolute Neuts (auto) 6.1, Absolute Lymphs (auto) 2.14, Nucleated RBC % 0, Sodium 140, Potassium 3.4 L, Chloride 105, Carbon Dioxide 29.0, Anion Gap 6, BUN 19 H, Creatinine 0.73, Estim Creat Clear Calc 71.02, Est GFR (MDRD) Af Amer 133, Est GFR (MDRD) Non-Af 110, BUN/Creatinine Ratio 25.9 H, Glucose 92, Calcium 8.6 Charges/Coding Visit Charges Inpatient E&M: 45792 Subs Hosp L2
[2023-03-17] MEDS: Petrolatum 33% Tube 1 APPLIC TOPICAL (11:19)
[2023-03-17] MEDS: 0.9% Saline Lock 10 ML Syringe IV (11:20)
[2023-03-17] MEDS: Ceftriaxone 2 GM in 0.9% Normal Saline (50mL MB+) 50 ML IV (11:20)
[2023-03-17] MEDS: guaiFENesin/D-Methorphan TAB.SR.12H 2 TABLET PO ×2 (13:41→20:58)
[2023-03-17] MEDS: Miconazole Nitrate 43 GM Bottle 1 APPLIC TOPICAL ×2 (13:41→21:01)
[2023-03-17] MEDS: Ipratropium/Albuterol Sulfate 3 ML AMPUL.NEB INHALATION ×2 (13:58→19:36)
[2023-03-17] MEDS: Senna/Docusate Sodium 1 Tablet 2 TABLET PO ×2 (16:15→20:57)
[2023-03-17] MEDS: Atorvastatin Calcium 40 MG Tablet PO (21:00)
--- NOTE | 2023-03-17 23:35 | RAD_ITS ---
INDICATION: chest pain EXAMINATION/TECHNIQUE: X-RAY - XR Chest 1 View AP portable. 11:42 PM COMPARISON: 03/16/2023 FINDINGS: LINES/DEVICES: None. LUNGS: Patchy alveolar infiltrate in the left lung base not significantly changed. No pneumothorax. MEDIASTINUM: Aorta is atherosclerotic. CARDIAC SILHOUETTE: Enlarged. Stable size. Sternal wires. BONES AND SOFT TISSUES: No acute abnormalities. RAD/Chest 1 View (Portable) IMPRESSION: Left basilar airspace disease likely pneumonia, unchanged. Electronically Signed: Maribel Saha MD at 0:41 EST ,
[2023-03-18] VITALS (16 sets, daily range): BP systolic 105–158; BP diastolic 54–85; PULSE 52–74; RESP 12–22; TEMP 36.2–36.8; O2SAT 90–98; BMI 35.2
[2023-03-18] MEDS: Nitroglycerin Oint 1 INCH PACKET TD ×4 (00:11→17:34)
[2023-03-18 00:13] LABS: Anion Gap 4 (5-15); BUN 25 mg/dL (7-18); BUN/Creat Ratio 29.4 RATIO (10-20); Calcium,Total 9.1 mg/dL (8.5-10.1); Chloride 104 mmol/L (98-107); Creatinine, Serum 0.85 mg/dL (0.70-1.30); EST Glomerular Filtration Rate 93 mL/min (>60); Est Glom Filt Rate - Afr Amer 112 mL/min (>60); Estimated Creatinine Clearance 83.56 ml/min; Glucose 127 mg/dL (74-106); Potassium 3.6 mmol/L (3.5-5.1); Sodium Level 137 mmol/L (136-145); Troponin-I HS 66 pg/mL (3.0-78.0)
--- NOTE | 2023-03-18 07:51 | PN.HOSP_ITS ---
Reason for Visit Reason for Visit: Diagnoses Non-ST elevation (NSTEMI) myocardial infarction (03/10/23) Atherosclerosis of coronary artery bypass graft(s) without angina pectoris (03/10/23) Heart failure, unspecified (03/10/23) Other specified abnormal findings of blood chemistry (03/10/23) Objective Data Objective Data Vital Signs: Vital Signs Temp Pulse Resp BP Pulse Ox O2 Del Method O2 Flow Rate 98.2 F 52 L 18 158/82 H 98 Nasal Cannula 3 03/18/23 06:00 03/18/23 06:00 03/18/23 06:00 03/18/23 06:00 03/18/23 06:57 03/18/23 06:57 03/18/23 06:57 FiO2 30 03/17/23 23:30 Oxygen Flow Rate (L/min) 3 Oxygen Delivery Method Nasal Cannula Weight: 266 lb 8.622 oz Body Mass Index (BMI) 35.2 Intake & Output: Intake and Output for Last 24 Hours 03/16/23 03/17/23 03/18/23 23:59 23:59 23:59 Intake Total 1300 / 1300 810 / 810 Output Total 300 / 300 1150 / 1150 400 / 400 Balance 1000 / 1000 -340 / -340 -400 / -400 Lab / Micro Data 03/18/23 07:05 03/18/23 07:05 Labs: Laboratory Results - last 24 hr 03/17/23 23:48: Sodium 137, Potassium 3.6, Chloride 104, Carbon Dioxide 29.0, Anion Gap 4 L, BUN 25 H, Creatinine 0.85, Estim Creat Clear Calc 83.56, Est GFR (MDRD) Af Amer 112, Est GFR (MDRD) Non-Af 93, BUN/Creatinine Ratio 29.4 H, Glucose 127 H, Calcium 9.1, Troponin I High Sens 66 Micro: Microbiology 03/17/23 09:18 Urine, Clean Catch Legionella Antigen - Final 03/17/23 09:18 Urine, Clean Catch Streptococcus pneumoniae Antigen (M - Final Streptococcus pneumonia Ag 03/17/23 01:35 Mucosa - Nasopharyngeal RSV RNA Qualitative (PCR) - Final 03/17/23 02:35 Nasal Secretion SARS-CoV-2 & FLU Antigen (Rapid) - Final 03/10/23 11:39 Nasal Secretion SARS-CoV-2 & FLU Antigen (Rapid) - Final Radiography Diagnostic Testing: Radiology Impression Chest X-Ray 03/17/23 23:35 IMPRESSION: Left basilar airspace disease likely pneumonia, unchanged. Electronically Signed: Maribel Saha MD at 0:41 EST , Rhythm Strip Rhythm Strip: A-fib Rate: 103 Ectopy: None Physical Exam Narrative Seen and examined. Patient is states his shortness of breath and cough is better. Patient on antib iotic for pneumonia physically deconditioned. Denies chest pain. Patient on BiPAP at night. As per nursing staff patient has dark stool. Physical exam General: Alert, Oriented x3, Cooperative, sitting upright. HEENT: Atraumatic, PERRLA, EOMI, Normocephalic Oral: No Gingival or Mucosal Lesions/ Ulcerations Neck: Supple, No JVD, Negative Carotid Bruits Lungs: Air entry diminished in bilateral lung bases. Mild bilateral coarse crepitations. Dyspnea better. Cardiovascular: Irregular rhythm, Normal S1, Normal S2, systolic murmur over right second ICS Abdomen: Bowel Sounds Present, Soft, Non Tender, Non-Distended : No renal angle tenderness. No suprapubic tenderness. Extremities: Chronic bilateral lower extremity nonpitting edema with fibrosis, Capillary Refill Less than 3 Seconds Skin: Chronic changes of lymphedema and venous edema. Scabs in the lower extremities. Musculoskeletal: No Tenderness to Palpation of Joints or Extremities. ROM restricted. Poor balance Neurological: Cranial nerves II-XII grossly intact, DTR 2+/4. No acute focal neurological deficit. Psych/Mental Status: Flat affect Assessment & Plan Assessment/Plan (1) Non-STEMI (non-ST elevated myocardial infarction): PLAN: Plan 1. Non-STEMI/CAD status post CABG, chronic HFpEF present on admission Patient is being admitted in PCU. Patient is not very interactive and physically deconditioned. Sewing Inspector was consulted. Left heart cath which shows patent GOULD to LAD, SVG to right PDA with 80% stenosis in the mid part and 70% in the mid to distal. High-grade stenosis of right PDA after touchdown. Heavily calcified proximal left circumflex artery stenosis. Imdur was added on the top of Coreg. Continue lisinopril and high intensity statin. Eliquis started. Lasix 40 mg daily was started. Medical therapy and will need staged PCI to SVG to RCA and complex PCI to proximal left circumflex artery as outpatient. Echo with an EF of 55% 03/14: Patient is on furosemide, lisinopril, high intensity statin, Imdur and carvedilol. PT and OT. Plan for SNF. 03/15: monitoring tech shows about 4 beats of NSVT and artifacts. No chest pain or shortness of breath. Serum potassium 3.3. Serum magnesium 1.8. Phosphorus 3.2. Patient is started on spironolactone 25 mg daily to compensate for hyp okalemia. Magnesium chloride 128 mg twice daily. 03/17: Potassium 3.4. Spironolactone dose increased to 50 mg daily. Continue furosemide 40 g daily. 2: Electrolytes in normal range. Darker stool. Stool for occult blood ordered. H&H 14.9/47%. Platelet count 143,000. 2. Left lower lobe pneumonia 03/16: Chest x-ray PA and lateral was done but seems AP and lateral was done. Left lung base not clear. Patient might have acute bronchitis/pneumonia. Patient had negative rapid COVID and flu antigen test. Repeat COVID flu RSV PCR ordered. Urinary antigens ordered. Recommend outpatient pulmonary follow-up with PFT and sleep study. 03/17: Augmentin was started yesterday and patient responded well. Leukocytosis resolved. No fever. Chest x-ray individually reviewed and shows left lower lung as alert opacity/infiltrate. Urinary antigen positive for Streptococcus therefore antibiotic changed to IV ceftriaxone 2 g daily. Continue incentive spirometry and PEP. Bronchodilator DuoNeb every 6 hourly. 12: Continue ceftriaxone while patient here and then discharged on Augmentin. 2. COMPA/morbid obesity on BiPAP at night. ? BMI 35.7, discussed lifestyle modifications DVT: On Eliquis . Charges/Coding Visit Charges Inpatient E&M: 38021 Subs Hosp L2
[2023-03-18 08:11] LABS: Absolute Lymphocyte Count 2.19 X10^3/uL (0.83-4.51); Absolute Neutrophil Count 6.1 X10^3/uL (2.0-7.7); Basophil# 0.05 X10^3/uL; Basophil% 0.5 % (0-1); Eosinophil# 0.18 X10^3/uL; Eosinophils% 1.9 % (0-5); Hematocrit 46.9 % (40-54); Hemoglobin 14.9 g/dL (13.0-16.5); Lymphocyte # 2.19 X10^3/ul (0.83-4.51); Lymphocyte % 22.9 % (19-41); Mean Corp Hgb Conc 31.8 g/dL (32-36); Mean Corpuscular Hgb 29.2 pg (27.0-32.0); Mean Corpuscular Volume 91.8 fL (80-94); Mean Platelet Vol. 11.7 fl (6.2-12.0); Monocyte# 0.95 X10^3/uL; Monocyte% 9.9 % (0-10); NRBC Flagged by Analyzer 0 % (0-5); Neutrophil # 6.13 X10^3/uL (2.7-7.7); Neutrophil % 64.2 % (47-70); Platelet Count 143 K/mm3 (150-450); RBC Distribution Width SD 47.7 fl (35.1-43.9); Red Blood Count 5.11 M/mm3 (4.6-6.2); White Blood Count 9.6 K/mm3 (4.4-11.0)
[2023-03-18] MEDS: Ceftriaxone 2 GM in 0.9% Normal Saline (50mL MB+) 50 ML IV (09:05)
[2023-03-18] MEDS: Aspirin E.C. 81 MG Tablet PO (09:05)
[2023-03-18] MEDS: Spironolactone 50 MG Tablet PO (09:05)
[2023-03-18] MEDS: 0.9% Saline Lock 10 ML Syringe IV (09:06)
[2023-03-18] MEDS: Miconazole Nitrate 43 GM Bottle 1 APPLIC TOPICAL ×2 (09:06→19:55)
[2023-03-18] MEDS: Carvedilol 6.25 MG Tablet PO ×2 (09:06→19:57)
[2023-03-18] MEDS: Petrolatum 33% Tube 1 APPLIC TOPICAL (09:07)
[2023-03-18] MEDS: APIXABAN 5 MG TABLET PO (09:07)
[2023-03-18] MEDS: Isosorbide Mononitrate 30 MG Tablet PO (09:08)
[2023-03-18] MEDS: Furosemide 40 MG Tablet PO (09:08)
[2023-03-18] MEDS: Magnesium Chloride 64 MG Delay Rel.Tablet 128 MG PO ×2 (09:08→19:57)
[2023-03-18] MEDS: Senna/Docusate Sodium 1 Tablet 2 TABLET PO ×2 (09:09→19:57)
[2023-03-18] MEDS: guaiFENesin/D-Methorphan TAB.SR.12H 2 TABLET PO ×2 (09:09→19:56)
[2023-03-18] MEDS: Lisinopril 10 MG Tablet PO (09:09)
[2023-03-18 09:17] LABS: Anion Gap 6 (5-15); BUN 21 mg/dL (7-18); BUN/Creat Ratio 26.1 RATIO (10-20); Calcium,Total 8.9 mg/dL (8.5-10.1); Chloride 106 mmol/L (98-107); Creatinine, Serum 0.81 mg/dL (0.70-1.30); EST Glomerular Filtration Rate 99 mL/min (>60); Est Glom Filt Rate - Afr Amer 120 mL/min (>60); Estimated Creatinine Clearance 87.68 ml/min; Glucose 85 mg/dL (74-106); Potassium 3.5 mmol/L (3.5-5.1); Sodium Level 139 mmol/L (136-145)
--- NOTE | 2023-03-18 10:06 | CASEMGMT ---
HILTON sent referrals to [facility], and [facility] via [facility]. Await responses. Lilian Gregory MSW KAREEM
--- NOTE | 2023-03-18 11:00 | CASEMGMT ---
HILTON sent a referral to [facility] as they now have availability. Lilian Gregory CORPORATE TRAVEL AGENT KAREEM
--- NOTE | 2023-03-18 12:25 | PN.CARD_ITS ---
Subjective Subjective Patient with chest pain last night. Denies any chest pains this morning. Objective Data Vital Signs: Vital Signs Temp Pulse Resp BP Pulse Ox O2 Del Method O2 Flow Rate 97.7 F L 59 L 18 118/58 L 96 Nasal Cannula 2 03/18/23 08:58 03/18/23 11:54 03/18/23 08:58 03/18/23 11:54 03/18/23 08:58 03/18/23 08:58 03/18/23 08:58 FiO2 30 03/17/23 23:30 Oxygen Flow Rate (L/min) 2 Oxygen Delivery Method Nasal Cannula Weight: 266 lb 8.622 oz Body Mass Index (BMI) 35.2 Intake & Output: Intake and Output for Last 24 Hours 03/16/23 03/17/23 03/18/23 23:59 23:59 23:59 Intake Total 1300 / 1300 810 / 810 170 / 170 Output Total 300 / 300 1150 / 1150 1000 / 1000 Balance 1000 / 1000 -340 / -340 -830 / -830 Lab / Micro Data 03/18/23 07:05 03/18/23 07:05 Labs: Laboratory Results - last 24 hr 03/17/23 23:48: Sodium 137, Potassium 3.6, Chloride 104, Carbon Dioxide 29.0, Anion Gap 4 L, BUN 25 H, Creatinine 0.85, Estim Creat Clear Calc 83.56, Est GFR (MDRD) Af Amer 112, Est GFR (MDRD) Non-Af 93, BUN/Creatinine Ratio 29.4 H, Glucose 127 H, Calcium 9.1, Troponin I High Sens 66 03/18/23 07:05: WBC 9.6, RBC 5.11, Hgb 14.9, Hct 46.9, MCV 91.8, MCH 29.2, MCHC 31.8 L, RDW Std Deviation 47.7 H, RDW Coeff of [place] 14.0, Plt Count 143 L, MPV 11.7, Immature Gran % (Auto) 0.600, Neut % (Auto) 64.2, Lymph % (Auto) 22.9, [place] % (Auto) 9.9, Eos % (Auto) 1.9, Baso % (Auto) 0.5, Absolute Neuts (auto) 6.1, Absolute Lymphs (auto) 2.19, Nucleated RBC % 0, Sodium 139, Potassium 3.5, Chloride 106, Carbon Dioxide 27.0, Anion Gap 6, BUN 21 H, Creatinine 0.81, Estim Creat Clear Calc 87.68, Est GFR (MDRD) Af Amer 120, Est GFR (MDRD) Non-Af 99, BUN/Creatinine Ratio 26.1 H, Glucose 85, Calcium 8.9 Micro: Microbiology 03/17/23 09:18 Urine, Clean Catch Legionella Antigen - Final 03/17/23 09:18 Urine, Clean Catch Streptococcus pneumoniae Antigen (M - Final Streptococcus pneumonia Ag Rhythm Strip Rhythm Strip: A-fib Rate: 103 Ectopy: None Cardiology Labs/Tests 03/17/23 23:48: Sodium 137, Potassium 3.6, Chloride 104, Carbon Dioxide 29.0, Anion Gap 4 L, BUN 25 H, Creatinine 0.85, Est GFR (MDRD) Af Amer 112, Est GFR (MDRD) Non-Af 93, BUN/Creatinine Ratio 29.4 H, Glucose 127 H, Calcium 9.1 03/18/23 07:05: WBC 9.6, RBC 5.11, Hgb 14.9, Hct 46.9, MCV 91.8, MCH 29.2, MCHC 31.8 L, Plt Count 143 L, MPV 11.7, Immature Gran % (Auto) 0.600, Neut % (Auto) 64.2, Lymph % (Auto) 22.9, [place] % (Auto) 9.9, Eos % (Auto) 1.9, Baso % (Auto) 0.5, Absolute Neuts (auto) 6.1, Nucleated RBC % 0, Sodium 139, Potassium 3.5, Chloride 106, Carbon Dioxide 27.0, Anion Gap 6, BUN 21 H, Creatinine 0.81, Est GFR (MDRD) Af Amer 120, Est GFR (MDRD) Non-Af 99, BUN/Creatinine Ratio 26.1 H, Glucose 85, Calcium 8.9 Rhythm: EKG: ECHO: Stress Test: Cardiac Cath: PCI: CT Surgery: Holter monitor: EPS: PPM: CXR: Chest CT Scan: Radiography Diagnostic Testing: Radiology Impression Chest X-Ray 03/17/23 23:35 IMPRESSION: Left basilar airspace disease likely pneumonia, unchanged. Electronically Signed: Maribel Saha MD at 0:41 EST , Physical Exam Narrative Awake. Comfortable. Heart sounds 1 and 2. 2/6 systolic murmur. Nonpitting edema. Decreased breath sounds bilateral bases. Assessment & Plan Assessment/Plan (1) Non-STEMI (non-ST elevated myocardial infarction): PLAN: Continue aspirin. Patient with chest pain last night. Angiographic films reviewed. Severe disease SVG to the RCA and proximal [place] left circumflex. Discussed with patient's son. Percutaneous coronary revascularization offered. Risks benefits and alternatives discussed. He understands and wishes to proceed. Loaded with clopidogrel. Plan on intervention in the morning. (2) Coronary artery disease involving coronary bypass graft: QUALIFIERS: [place] vs. transplanted heart: [place] heart Associated angina: with stable angina Qualified Code(s): I25.708 - Atherosclerosis of coronary artery bypass graft(s), unspecified, with other forms of angina pectoris PLAN: See #1 above. (3) Atrial fibrillation: PLAN: On Eliquis. Hold in anticipation of cardiac catheterization in the morning.
[2023-03-18] MEDS: Clopidogrel Bisulfate 300 MG Tablet PO (12:30)
[2023-03-18] MEDS: Ipratropium/Albuterol Sulfate 3 ML AMPUL.NEB INHALATION ×2 (13:15→19:10)
--- NOTE | 2023-03-18 14:24 | CASEMGMT ---
[facility] accepted patient. HILTON spoke with patient's son Sergio letting him know that [facility]. Sergio preferred [facility]. HILTON explained insurance will need to approve patient before he can go, however someone will let him know. Plan: d/c to [facility] pending insurance approval. Lilian Gregory DIRECTOR OF DONOR RELATIONS KAREEM
[2023-03-18] MEDS: Atorvastatin Calcium 40 MG Tablet PO (19:56)
[2023-03-19] VITALS (16 sets, daily range): BP systolic 101–163; BP diastolic 51–83; PULSE 55–78; RESP 12–20; TEMP 35.8–36.7; O2SAT 94–100; BMI 35.2; BMI 34.4
[2023-03-19] MEDS: Nitroglycerin Oint 1 INCH PACKET TD ×2 (00:55→05:13)
[2023-03-19] MEDS: Aspirin E.C. 81 MG Tablet PO (06:12)
[2023-03-19] MEDS: Clopidogrel Bisulfate 75 MG Tablet PO (06:12)
[2023-03-19] MEDS: Carvedilol 6.25 MG Tablet PO ×2 (06:12→21:41)
[2023-03-19] MEDS: Lisinopril 10 MG Tablet PO (06:12)
[2023-03-19] MEDS: Ipratropium/Albuterol Sulfate 3 ML AMPUL.NEB INHALATION ×3 (06:43→19:46)
[2023-03-19 06:49] LABS: Absolute Lymphocyte Count 2.25 X10^3/uL (0.83-4.51); Absolute Neutrophil Count 5.2 X10^3/uL (2.0-7.7); Basophil# 0.07 X10^3/uL; Basophil% 0.8 % (0-1); Eosinophils% 2.3 % (0-5); Hematocrit 46.8 % (40-54); Hemoglobin 15.1 g/dL (13.0-16.5); Lymphocyte # 2.25 X10^3/ul (0.83-4.51); Lymphocyte % 25.7 % (19-41); Mean Corp Hgb Conc 32.3 g/dL (32-36); Mean Corpuscular Hgb 29.3 pg (27.0-32.0); Mean Corpuscular Volume 90.9 fL (80-94); Mean Platelet Vol. 10.8 fl (6.2-12.0); Monocyte# 1.03 X10^3/uL; Monocyte% 11.7 % (0-10); NRBC Flagged by Analyzer 0 % (0-5); Neutrophil # 5.19 X10^3/uL (2.7-7.7); Neutrophil % 59.2 % (47-70); Platelet Count 181 K/mm3 (150-450); RBC Distribution Width CV 13.8 % (11.6-14.6); RBC Distribution Width SD 46.5 fl (35.1-43.9); Red Blood Count 5.15 M/mm3 (4.6-6.2); White Blood Count 8.8 K/mm3 (4.4-11.0)
[2023-03-19 07:29] LABS: Anion Gap 4 (5-15); BUN 18 mg/dL (7-18); BUN/Creat Ratio 23.3 RATIO (10-20); Calcium,Total 8.8 mg/dL (8.5-10.1); Chloride 106 mmol/L (98-107); Creatinine, Serum 0.77 mg/dL (0.70-1.30); EST Glomerular Filtration Rate 104 mL/min (>60); Est Glom Filt Rate - Afr Amer 126 mL/min (>60); Estimated Creatinine Clearance 71.02 ml/min; Glucose 92 mg/dL (74-106); Potassium 3.7 mmol/L (3.5-5.1); Sodium Level 139 mmol/L (136-145)
[2023-03-19] MEDS: 0.9% Saline Lock 10 ML Syringe IV ×2 (08:24→12:39)
--- NOTE | 2023-03-19 10:25 | PN.HOSP_ITS ---
Subjective Subjective Denies chest pain Objective Data Objective Data Vital Signs: Vital Signs Temp Pulse Resp BP Pulse Ox O2 Del Method O2 Flow Rate 36.5 C L 61 18 142/83 H 94 Nasal Cannula 2 03/19/23 08:18 03/19/23 08:18 03/19/23 08:18 03/19/23 08:18 03/19/23 08:18 03/19/23 08:18 03/19/23 08:18 FiO2 30 03/19/23 02:43 Oxygen Flow Rate (L/min) 2 Oxygen Delivery Method Nasal Cannula Weight: 118.6 kg Body Mass Index (BMI) 34.4 Intake & Output: Intake and Output for Last 24 Hours 03/17/23 03/18/23 03/19/23 23:59 23:59 23:59 Intake Total 810 / 810 741 / 741 Output Total 1150 / 1150 1999 / 1999 750 / 750 Balance -340 / -340 -1259 / -1259 -750 / -750 Lab / Micro Data 03/19/23 06:00 03/19/23 06:00 Labs: Laboratory Results - last 24 hr 03/19/23 06:00: WBC 8.8, RBC 5.15, Hgb 15.1, Hct 46.8, MCV 90.9, MCH 29.3, MCHC 32.3, RDW Std Deviation 46.5 H, RDW Coeff of Maria Victoria 13.8, Plt Count 181, MPV 10.8, Immature Gran % (Auto) 0.300, Neut % (Auto) 59.2, Lymph % (Auto) 25.7, Love % (Auto) 11.7 H, Eos % (Auto) 2.3, Baso % (Auto) 0.8, Absolute Neuts (auto) 5.2, Absolute Lymphs (auto) 2.25, Nucleated RBC % 0, Sodium 139, Potassium 3.7, Chloride 106, Carbon Dioxide 29.0, Anion Gap 4 L, BUN 18, Creatinine 0.77, Estim Creat Clear Calc 71.02, Est GFR (MDRD) Af Amer 126, Est GFR (MDRD) Non-Af 104, BUN/Creatinine Ratio 23.3 H, Glucose 92, Calcium 8.8 Micro: Microbiology 03/17/23 09:18 Urine, Clean Catch Legionella Antigen - Final 03/17/23 09:18 Urine, Clean Catch Streptococcus pneumoniae Antigen (M - Final Streptococcus pneumonia Ag 03/17/23 01:35 Mucosa - Nasopharyngeal RSV RNA Qualitative (PCR) - Final 03/17/23 02:35 Nasal Secretion SARS-CoV-2 & FLU Antigen (Rapid) - Final 03/10/23 11:39 Nasal Secretion SARS-CoV-2 & FLU Antigen (Rapid) - Final Rhythm Strip Rhythm Strip: A-fib Rate: 103 Ectopy: None Physical Exam Const alert and no apparent distress Constitutional Narrative: Pleasantly confused Resp normal respiratory effort, no retractions, no use of accessory muscles and clear to auscultation bilaterally Cardio regular rate, regular rhythm, S1 normal heart sound and S2 normal heart sound GI normal to inspection, nondistended, normoactive bowel sounds, soft to palpation, non-tender and non-distended Neuro Sensorium / Orientation: awake Assessment & Plan Assessment/Plan (1) Non-STEMI (non-ST elevated myocardial infarction): PLAN: Plan Non-STEMI * CAD status post CABG, chronic HFpEF present on admission * Left heart cath 03/12 which shows patent GOULD to LAD, SVG to right PDA with 80% stenosis in the mid part and 70% in the mid to distal. High-grade stenosis of right PDA after touchdown. Heavily calcified proximal left circumflex artery stenosis. Imdur was added on the top of Coreg. Continue lisinopril and high intensity statin. Eliquis started. Lasix 40 mg daily was started. Medical therapy and will need staged PCI to SVG to RCA and complex PCI to proximal left circumflex artery as outpatient. * [facility] 03/19: SAM to proxicmal LCx, mid SVG to RCA and prox SVG to RCA. * Echo with an EF of 55% * Troponins peaked at 598. * Continue ASA, carvedilol, clopidogrel, atorvastatin, isosorbide, lisinopril. Left lower lobe pneumonia * Pneumococcal with positive urinary antigen * on CTX. Chronic conditions: * COMPA BiPAP at night. * afib: on apixaban. DVT: not indicated as already on apixaban. Disposition: to SNF, pending insurance authorization. Pt will likely be medically ready on 03/20/2023. . Charges/Coding Visit Charges Inpatient E&M: 84361 Subs Hosp L2
--- NOTE | 2023-03-19 10:26 | PCM.PN.BLA ---
Progress Note Successful PCI with drug-eluting stent to the proximal left circumflex and to the proximal and mid SVG to the RCA. Continue Eliquis. Continue Plavix. Stop aspirin. May discharge home in the morning from a cardiology standpoint if labs are okay.
--- NOTE | 2023-03-19 10:36 | CL.I_ITS ---
Patient Name: KADY PENNY Study Date: 03/19/2023 Performing: Ranjana Santizo MD Ht: 73 inches 185.42 cm : 1945 Wt: 261.47 lbs 118.6 kg Age: 77 Gender: male BSA: 2.41 PROCEDURE(S) PERFORMED IC12-(20261/C9600)SAM W/WO PTCA, SINGLE CORONARY ARTERY IC14-(48113/C9604)GRAFT-SAM AND/OR PTCA, SINGLE GRAFT CLINICAL PROFILE AND CO-MORBIDITIES Indications: ACS > 24 hrs Heart Failure: None Angina Classification Anginal Classification w/in 2 Weeks: CCS IV CAD Presentations: Non-STEMI. Symptom onset Date/Time: Time Not Available CONCLUSIONS Successful PTCA/SAM Prox LCX using Lauren Alamosa 2.75x8 mm, post-dilated using 3.0 mm balloon Successful SAM Mid SVG to RCA using Lauren Alamosa 3.5x18 mm Successful SAM Prox SVG to RCA using Lauren Alamosa 3.5x38 mm RECOMMENDATIONS Plavix for at least 6 months Continue Apixaban DESCRIPTION OF PROCEDURE The patient arrived to the procedure lab. The risks and benefits of the procedure as well as a full description of our services here and current unavailability of surgical backup were fully explained to the patient and/or their significant other prior to the catheterization. The Timeout was completed, verifying the correct patient and procedure. The patient's procedural site was prepped and draped in the usual fashion. Local anesthetic was given subcutaneously to right radial region with Lidocaine 2%. Using a modified Seldinger technique, arterial access was obtained via the right radial artery, a 6Fr sheath was inserted.. XB 3.0 Guide catheter was inserted and engaged into the LCA. Runthrough Guide wire was advanced to the Circumflex. NC Emerge 2.50 x 8 Balloon catheter was inserted. Balloon catheter was advanced across lesion in the circumflex, proximal. Angiogram performed pre balloon dilatation. PTCA balloon inflated at 16 atms for 25 secs. PTCA balloon inflated at 12 atms for 11 secs. Angiogram performed post balloon dilatation. Austin Alamosa 2.75 x 8 Drug Eluting stent was inserted. Drug Eluting stent was advanced across the lesion in the circumflex, proximal. Angiogram performed post stent deployment. NC Emerge 3.00 x 12 Balloon catheter was inserted. Balloon catheter was advanced across lesion in the circumflex, proximal. Angiogram performed pre balloon dilatation. Angiogram performed post balloon dilatation. AL 1 Guide catheter was inserted and engaged into the SVG to the RCA. Runthrough Guide wire was advanced to the SVG to the RCA. Austin Alamosa 3.5 x 18 Drug Eluting stent was inserted. Drug Eluting stent was advanced across the lesion in the graft to the RCA. Angiogram performed post stent deployment. Lauren Alamosa 3.5 x 38 Drug Eluting stent was inserted. Drug Eluting stent was advanced across the lesion in the graft to the RCA. The arterial sheath was pulled and a TR Band was applied for hemostasis INTERVENTION INFORMATION LESION SITE: Circumflex (Proximal) Lesion Complexity: Non-High/Non-C Pre Stenosis: 80 % Pre intervention ROSCOE flow: 3 PROCEDURE: Drug Eluting Stent with pre and post dilatation Post Stenosis: 0 % Post intervention ROSCOE flow: 3 Lesion Devices: Terumo .014 180cm Runthrough Extra Floppy straight Cordis 6 Fr XB3.0 100cm Guide Catheter Vahid Sci NC EMERGE MR 2.50x08 BALLOON Medtronic 2.75 x 08 LAUREN FRONTIER SAM Vahid Sci NC EMERGE MR 3.00x12 BALLOON LESION SITE: Vein > to RCA (Mid) Segment Number: 2-Mid-right coronary artery conduit segment - mRCA , Lesion Location: Body Pre Stenosis: 70 % Pre intervention ROSCOE flow: 3 PROCEDURE: Drug Eluting Stent Post Stenosis: 0 % Post intervention ROSCOE flow: 3 Lesion Devices: Terumo .014 180cm Runthrough Extra Floppy straight Cordis 6 Fr AL1.0 100cm Guide Catheter Medtronic 3.5 x 18 LAUREN FRONTIER SAM Medtronic 3.5 x 38 LAUREN FRONTIER SAM LESION SITE: Saphaenous Vein Graft to the RCA lesion location in the proximal graft segment Pre Stenosis: 90 % Pre intervention ROSCOE flow: 3 PROCEDURE: Drug Eluting Stent 0 % Post intervention ROSCOE flow: 3 COMPLICATIONS No Complications PROCEDURE MEDICATIONS Fentanyl 50 mcg IV Versed 1 mg IV Fentanyl 25 mcg IV Fentanyl 25 mcg IV Oxygen: 2 L/min via nasal cannula Adenosine 48 mcg IC 03/19/2023 10:01:44 Adenosine 48 mcg IC @ 03/19/2023 10:01:44 Heparin given IA 03/19/2023 09:23:01 Heparin 7000 unit(s) IV 03/19/2023 09:27:28 Heparin 3000 unit(s) IV 03/19/2023 09:37:31 Lasix 20 mg IV 03/19/2023 10:17:03 Nitro 200 mcg IC 03/19/2023 10:01:52 Nitro 200 mcg IC 03/19/2023 10:01:52 Verapamil 2.5mg, Ntg 200mcgs, 2000 units of Heparin given IA 03/19/2023 09:23:01 SUMMARY OF HEMODYNAMIC DATA Time AIR REST ECG 09:07:09 Art 147/69 (93) 09:31:03 AO 140/66 (92) SA 09:33:49 AIR REST 10:32:43 Signed By Ranjana Santizo MD On 03/19/2023 10:36:09 Ranjana Santizo MD
[2023-03-19] MEDS: 0.9% Normal Saline (1000mL) 1,000 ML 75 ML IV (12:39)
[2023-03-19] MEDS: Spironolactone 50 MG Tablet PO (12:55)
[2023-03-19] MEDS: Miconazole Nitrate 43 GM Bottle 1 APPLIC TOPICAL ×2 (12:56→21:43)
[2023-03-19] MEDS: Petrolatum 33% Tube 1 APPLIC TOPICAL (12:56)
[2023-03-19] MEDS: Ceftriaxone 2 GM in 0.9% Normal Saline (50mL MB+) 50 ML IV (12:56)
[2023-03-19] MEDS: Furosemide 40 MG Tablet PO (12:57)
[2023-03-19] MEDS: guaiFENesin/D-Methorphan TAB.SR.12H 2 TABLET PO ×2 (12:57→21:41)
[2023-03-19] MEDS: Magnesium Chloride 64 MG Delay Rel.Tablet 128 MG PO ×2 (12:57→21:42)
[2023-03-19] MEDS: Isosorbide Mononitrate 30 MG Tablet PO (12:58)
[2023-03-19] MEDS: Senna/Docusate Sodium 1 Tablet 2 TABLET PO ×2 (12:58→21:42)
--- NOTE | 2023-03-19 13:34 | CRPHASE1_ITS ---
Patient Communication Patient Information PHII Cardiac Rehab Discussed with Patient:: Yes Guide to Cardiac Rehab Given to Patient:: Yes Cardiac Rehab Facility Choice List Given to Patient:: Yes Communication to Cardiac Rehab Choice Program [facility] CR PHII:: Communication Given to CR Pharmacy Data Analyst:: Ranjana Santizo Refer Phase II Cardiac Rehab:: Yes Medical/Surgical History Medical History CAD:: Yes Congestive Heart Failure: CVA/TIA: Cardiac Rehabilitation Info Program Information Cardiac Rehabilitation Program Information: Cardiac Rehab The cardiac rehab team at [facility] consists of highly skilled exercise physiologists, nurses, respiratory therapists and physicians working together with you. Our purpose is to help you have a full recovery and achieve the goals you set for yourself. Over the years many of our patients have returned to activities they assumed they would never do again! We can help restore your confidence and motivation to make lifestyle changes that can have a significant impact on your health and quality of life! We can help answer questions and concerns you may have about exercise, lifestyle, medications, diet, stress and anxiety which are common following a hospitalization. WE monitor ECG and vital signs during exercise and discuss your progress with you and report to your physician(s). Cardiac Rehab is proven to help reduce readmissions, improve functional capacity and lower recurrence of problems with your heart. Our Cardiac Rehab program is Certified by the [place] [employer] Pulmonary [employer] (AACVPR) and Accredited by the [place] [employer] through our [facility]. You can contact us at . We invite you to call us with your questions or to get started in our program. If you have other questions or concerns be sure to ask your physician/provider during your follow-up visit. WE look forward to seeing you!
--- NOTE | 2023-03-19 13:44 | CRPH1.INSTRU ---
General Education Discussed with Patient CAD and cardiac anatomy and function:: Patient communicates acknowledgment Sign/Symptoms of NM:: Patient communicates acknowledgment Antiplatelet therapy: Patient communicates acknowledgment Proper use of NTG-SL: Patient communicates acknowledgment Emergency procedures and activation of EMS: Patient communicates acknowledgment Compliance of all prescribed medications: Patient communicates acknowledgment Overweight/Obesity Risk Factors Patient Overweight/Obesity Risk Factors Are:: Obesity - > or = 30 Response Code Overweight/Obesity:: Patient communicates acknowledgment Hypertension Response Code Hypertension:: Patient communicates acknowledgment Heart Disease Risk Factors Patient Heart Disease Risk Factors Are:: Previous cardiac event Response Code Heart Disease Response Code:: Patient communicates acknowledgment Metabolic Syndrome Risk Factors Patient Metabolic Syndrome Risk Factors Are [3 of 5]:: Waist circumference > 35 [female] or 40 [male] and Hypertension Response Code Metabolic Syndrome Response Code:: Needs reinforcement Sedentary Risk Factors Patient Sedentary Risk Factors Are:: Lack of regular exercise Recommendations Recommendations Include:: Benefits of regular exercise Stress Risk Factors Patient Stress Risk Factors Are:: Patient denies stress as a risk factor Response Code Stress Response Code:: Needs reinforcement
[2023-03-19 15:40] LABS: ACT Activated Clotting Time 201 sec (74-137)
[2023-03-19 15:41] LABS: ACT Activated Clotting Time 298 sec (74-137)
[2023-03-19 15:41] LABS: ACT Activated Clotting Time 260 sec (74-137)
[2023-03-19] MEDS: APIXABAN 5 MG TABLET PO (21:42)
[2023-03-19] MEDS: Atorvastatin Calcium 40 MG Tablet PO (21:42)
[2023-03-20] VITALS (11 sets, daily range): BP systolic 115–146; BP diastolic 62–83; PULSE 53–75; RESP 12–22; TEMP 36.3–36.5; O2SAT 92–97; BMI 34.2
[2023-03-20] MEDS: Ipratropium/Albuterol Sulfate 3 ML AMPUL.NEB INHALATION ×3 (07:05→20:09)
[2023-03-20 07:51] LABS: Hematocrit 45.7 % (40-54); Hemoglobin 14.6 g/dL (13.0-16.5); Mean Corp Hgb Conc 31.9 g/dL (32-36); Mean Corpuscular Volume 90.7 fL (80-94); Mean Platelet Vol. 10.6 fl (6.2-12.0); Platelet Count 199 K/mm3 (150-450); RBC Distribution Width CV 14.3 % (11.6-14.6); RBC Distribution Width SD 47.9 fl (35.1-43.9); Red Blood Count 5.04 M/mm3 (4.6-6.2); White Blood Count 9.2 K/mm3 (4.4-11.0)
[2023-03-20 08:10] LABS: ALB/GLOB Ratio 0.5 RATIO (0.9-2.4); AST(SGOT) 72 U/L (15-37); Alanine Aminotransfer ALT/SGPT 70 U/L (16-61); Albumin, Serum 2.4 g/dL (3.2-5.0); Alkaline Phosphatase 82 U/L (45-117); Anion Gap 6 (5-15); BUN 18 mg/dL (7-18); BUN/Creat Ratio 20.8 RATIO (10-20); Calcium,Total 8.5 mg/dL (8.5-10.1); Chloride 106 mmol/L (98-107); Creatinine, Serum 0.87 mg/dL (0.70-1.30); EST Glomerular Filtration Rate 91 mL/min (>60); Est Glom Filt Rate - Afr Amer 110 mL/min (>60); Estimated Creatinine Clearance 81.63 ml/min; Globulin 4.5 g/dL (2.2-4.2); Glucose 110 mg/dL (74-106); Potassium 4.1 mmol/L (3.5-5.1); Protein, Total 6.9 g/dL (6.4-8.2); Sodium Level 140 mmol/L (136-145)
--- NOTE | 2023-03-20 08:54 | PN.HOSP_ITS ---
Subjective Subjective Denies chest pain. Objective Data Objective Data Vital Signs: Vital Signs Temp Pulse Resp BP Pulse Ox O2 Del Method O2 Flow Rate 36.3 C L 59 L 18 126/69 H 95 Bi-pap 3 03/20/23 03:00 03/20/23 07:07 03/20/23 07:07 03/20/23 03:00 03/20/23 07:07 03/20/23 03:44 03/19/23 19:46 FiO2 30 03/20/23 07:07 Oxygen Flow Rate (L/min) 3 Oxygen Delivery Method Bi-pap Weight: 117.9 kg Body Mass Index (BMI) 34.2 Intake & Output: Intake and Output for Last 24 Hours 03/18/23 03/19/23 03/20/23 23:59 23:59 23:59 Intake Total 741 / 741 910 / 1150 240 / 240 Output Total 1999 / 1999 1500 / 1500 0 / 0 Balance -1259 / -1259 -590 / -350 240 / 240 Lab / Micro Data 03/20/23 07:18 03/20/23 07:18 Labs: Laboratory Results - last 24 hr 03/19/23 09:30: Activated Clotting Time 201 H 03/19/23 09:54: Activated Clotting Time 298 H 03/19/23 10:16: Activated Clotting Time 260 H 03/20/23 07:18: WBC 9.2, RBC 5.04, Hgb 14.6, Hct 45.7, MCV 90.7, MCH 29.0, MCHC 31.9 L, RDW Std Deviation 47.9 H, RDW Coeff of Maria Victoria 14.3, Plt Count 199, MPV 10.6, Sodium 140, Potassium 4.1, Chloride 106, Carbon Dioxide 28.0, Anion Gap 6, BUN 18, Creatinine 0.87, Estim Creat Clear Calc 81.63, Est GFR (MDRD) Af Amer 110, Est GFR (MDRD) Non-Af 91, BUN/Creatinine Ratio 20.8 H, Glucose 110 H, Calcium 8.5, Total Bilirubin 0.90, AST 72 H, ALT 70 H, Alkaline Phosphatase 82, Total Protein 6.9, Albumin 2.4 L, Globulin 4.5 H, Albumin/Globulin Ratio 0.5 L Micro: Microbiology 03/17/23 09:18 Urine, Clean Catch Legionella Antigen - Final 03/17/23 09:18 Urine, Clean Catch Streptococcus pneumoniae Antigen (M - Final Streptococcus pneumonia Ag 03/17/23 01:35 Mucosa - Nasopharyngeal RSV RNA Qualitative (PCR) - Final 03/17/23 02:35 Nasal Secretion SARS-CoV-2 & FLU Antigen (Rapid) - Final 03/10/23 11:39 Nasal Secretion SARS-CoV-2 & FLU Antigen (Rapid) - Final Rhythm Strip Rhythm Strip: A-fib Rate: 103 Ectopy: None Physical Exam Const Constitutional Narrative: pleasantly confused. Resp normal respiratory effort, no retractions, no use of accessory muscles and clear to auscultation bilaterally Cardio regular rate, regular rhythm, S1 normal heart sound and S2 normal heart sound GI normal to inspection, nondistended, normoactive bowel sounds, soft to palpation, non-tender and non-distended Extremity Extremity Narrative: right wrist cath site w/o ecchymosis/hematoma. Assessment & Plan Assessment/Plan (1) Non-STEMI (non-ST elevated myocardial infarction): PLAN: Plan Non-STEMI * CAD status post CABG, chronic HFpEF present on admission * Left heart cath 03/12 which shows patent GOULD to LAD, SVG to right PDA with 80% stenosis in the mid part and 70% in the mid to distal. High-grade stenosis of right PDA after touchdown. Heavily calcified proximal left circumflex artery stenosis. Imdur was added on the top of Coreg. Continue lisinopril and high intensity statin. Eliquis started. Lasix 40 mg daily was started. Medical therapy and will need staged PCI to SVG to RCA and complex PCI to proximal left circumflex artery as outpatient. * [facility] 03/19: SAM to proxicmal LCx, mid SVG to RCA and prox SVG to RCA. * Echo with an EF of 55% * Troponins peaked at 598. * Continue ASA, carvedilol, clopidogrel, atorvastatin, isosorbide, lisinopril. Left lower lobe pneumonia * Pneumococcal with positive urinary antigen * on CTX. Chronic conditions: * COMPA BiPAP at night. * afib: on apixaban. DVT: not indicated as already on apixaban. Disposition: to SNF, pending insurance authorization. Pt medically ready on 03/20/2023. . Charges/Coding Visit Charges Inpatient E&M: 18533 Subs Hosp L2
--- NOTE | 2023-03-20 09:14 | CASEMGMT ---
Discharge Planning Updates sent to [facility] Ivonne Potter, Discharge Planning Asst.
[2023-03-20] MEDS: Clopidogrel Bisulfate 75 MG Tablet PO (10:14)
[2023-03-20] MEDS: Senna/Docusate Sodium 1 Tablet 2 TABLET PO ×2 (10:14→21:45)
[2023-03-20] MEDS: Magnesium Chloride 64 MG Delay Rel.Tablet 128 MG PO ×2 (10:14→21:45)
[2023-03-20] MEDS: guaiFENesin/D-Methorphan TAB.SR.12H 2 TABLET PO ×2 (10:14→21:45)
[2023-03-20] MEDS: Isosorbide Mononitrate 30 MG Tablet PO (10:14)
[2023-03-20] MEDS: Furosemide 40 MG Tablet PO (10:14)
[2023-03-20] MEDS: Lisinopril 10 MG Tablet PO (10:14)
[2023-03-20] MEDS: Spironolactone 50 MG Tablet PO (10:15)
[2023-03-20] MEDS: APIXABAN 5 MG TABLET PO ×2 (10:15→21:45)
[2023-03-20] MEDS: Carvedilol 6.25 MG Tablet PO ×2 (10:15→21:44)
[2023-03-20] MEDS: Petrolatum 33% Tube 1 APPLIC TOPICAL (10:20)
[2023-03-20] MEDS: Miconazole Nitrate 43 GM Bottle 1 APPLIC TOPICAL ×2 (10:20→21:46)
[2023-03-20] MEDS: Ceftriaxone 2 GM in 0.9% Normal Saline (50mL MB+) 50 ML IV (10:27)
--- NOTE | 2023-03-20 11:45 | TREXTCAR_ITS ---
Diet Diet Order/Speech Therapy: 03/19/23 12:08 Diet: Cardiac - Heart Healthy Is pt able to select menu?: Yes Fluid restriction:: 1500 mL Routine Orders/Code Status Code Status: Full Code Wound(s) Rt Knee: Wound Type: Abrasion R groin: Wound Type: Puncture Rt radial: Wound Type: Puncture Therapies Weight Bearing: Full weight bearing Physical Therapy: Eval and Treat Occupational Therapy: Eval and Treat Problem/Diagnosis (1) Non-STEMI (non-ST elevated myocardial infarction): Status: Acute Code(s): I21.4 - Non-ST elevation (NSTEMI) myocardial infarction Plan Non-STEMI * CAD status post CABG, chronic HFpEF present on admission * Left heart cath 03/12 which shows patent GOULD to LAD, SVG to right PDA with 80% stenosis in the mid part and 70% in the mid to distal. High-grade stenosis of right PDA after touchdown. Heavily calcified proximal left circumflex artery stenosis. Imdur was added on the top of Coreg. Continue lisinopril and high intensity statin. Eliquis started. Lasix 40 mg daily was started. Medical therapy and will need staged PCI to SVG to RCA and complex PCI to proximal left circumflex artery as outpatient. * [facility] 03/19: SAM to proxicmal LCx, mid SVG to RCA and prox SVG to RCA. * Echo with an EF of 55% * Troponins peaked at 598. * Continue ASA, carvedilol, clopidogrel, atorvastatin, isosorbide, lisinopril. Left lower lobe pneumonia * Pneumococcal with positive urinary antigen * on CTX. Chronic conditions: * COMPA BiPAP at night. * afib: on apixaban. DVT: not indicated as already on apixaban. Disposition: to SNF, pending insurance authorization. Pt medically ready on 03/20/2023. . Allergies/Procedures Done in Hospital Allergies No Known Allergies Allergy (Verified 03/10/23 11:14) Procedures: 2-D Echocardiogram and Cardiac catheterization Type of Care/Length of Stay Estimated LOS: Convalescent Care Less Than 30 days Type of Care Needed: Skilled Rehab Potential: Fair Prognosis: Good Additional Orders/Day of Discharge Day of Discharge: 03/20/23 Dietary and Speech Recommendations Dietitian Recommendations/Changes: Continue Cardiac diet w/ fluid restriction as ordered Monitor for changes in pt nutritional status and make additional rec as indicated Discharge Plan Admission Admit Date/Time: 03/10/23 14:16 Primary Reason for Your Visit: NSTEMI Attending Provider: Neo Torres Primary Care Provider: Care Physician,No Primary Consulting Providers: Jose Alberto Clark; Jak Bruce; Samuel Estevez Discharge Orders/Prescriptions Prescriptions: New furosemide 40 mg Tablet 40 mg PO DAILY Qty: 0 0RF atorvastatin 40 mg Tablet 40 mg PO QHS Qty: 0 0RF carvedilol 6.25 mg Tablet 6.25 mg PO BID Qty: 0 0RF isosorbide mononitrate 30 mg Tablet Extended Release 24 Hr 30 mg PO DAILY Qty: 0 0RF clopidogrel 75 mg Tablet 75 mg PO DAILY Qty: 0 0RF lisinopril 10 mg Tablet 10 mg PO DAILY Qty: 0 0RF spironolactone 50 mg Tablet 50 mg PO DAILY Qty: 0 0RF Eliquis 5 mg Tablet 5 mg PO BID Qty: 0 0RF amoxicillin-pot clavulanate 875-125 mg tablet 1 tab PO BID Qty: 6 0RF Referrals / Follow Up: Rosales Adair MD [Med Staff - Active Staff] - 04/29/23 9:30 am Care Physician,No Primary [Primary Care Provider] - Disposition Disposition (needs filled in before D/C Order can be placed): Care Home Facility
[2023-03-20] MEDS: Atorvastatin Calcium 40 MG Tablet PO (21:45)
[2023-03-21] VITALS (7 sets, daily range): BP systolic 123; BP diastolic 61–65; PULSE 55–82; RESP 12–18; TEMP 36.1–36.6; O2SAT 92–95; BMI 34.2
[2023-03-21] MEDS: Ipratropium/Albuterol Sulfate 3 ML AMPUL.NEB INHALATION ×2 (06:57→13:10)
--- NOTE | 2023-03-21 08:28 | PN.HOSP_ITS ---
Reason for Visit Reason for Visit: No chest pain. No shortness of breath. Objective Data Objective Data Vital Signs: Vital Signs Temp Pulse Resp BP Pulse Ox O2 Del Method O2 Flow Rate 36.6 C 75 17 123/65 H 92 Nasal Cannula 2 03/21/23 03:00 03/21/23 07:00 03/21/23 07:00 03/21/23 03:00 03/21/23 07:00 03/21/23 07:00 03/21/23 07:00 FiO2 30 03/21/23 02:32 Oxygen Flow Rate (L/min) 2 Oxygen Delivery Method Nasal Cannula Weight: 117.9 kg Body Mass Index (BMI) 34.2 Intake & Output: Intake and Output for Last 24 Hours 03/19/23 03/20/23 03/21/23 23:59 23:59 23:59 Intake Total 910 / 1150 1260 / 1260 0 / 0 Output Total 1500 / 1500 1600 / 1600 600 / 600 Balance -590 / -350 -340 / -340 -600 / -600 Lab / Micro Data 03/20/23 07:18 03/20/23 07:18 Micro: Microbiology 03/17/23 09:18 Urine, Clean Catch Legionella Antigen - Final 03/17/23 09:18 Urine, Clean Catch Streptococcus pneumoniae Antigen (M - Final Streptococcus pneumonia Ag 03/17/23 01:35 Mucosa - Nasopharyngeal RSV RNA Qualitative (PCR) - Final 03/17/23 02:35 Nasal Secretion SARS-CoV-2 & FLU Antigen (Rapid) - Final 03/10/23 11:39 Nasal Secretion SARS-CoV-2 & FLU Antigen (Rapid) - Final Rhythm Strip Rhythm Strip: A-fib Rate: 103 Ectopy: None Physical Exam Const alert and no apparent distress Resp normal respiratory effort, no retractions, no use of accessory muscles and clear to auscultation bilaterally Cardio regular rate, regular rhythm, S1 normal heart sound and S2 normal heart sound GI normal to inspection, nondistended, normoactive bowel sounds, soft to palpation, non-tender and non-distended Assessment & Plan Assessment/Plan (1) Non-STEMI (non-ST elevated myocardial infarction): PLAN: Plan Non-STEMI * CAD status post CABG, chronic HFpEF present on admission * Left heart cath 03/12 which shows patent GOULD to LAD, SVG to right PDA with 80% stenosis in the mid part and 70% in the mid to distal. High-grade stenosis of right PDA after touchdown. Heavily calcified proximal left circumflex artery stenosis. Imdur was added on the top of Coreg. Continue lisinopril and high intensity statin. Eliquis started. Lasix 40 mg daily was started. Medical therapy and will need staged PCI to SVG to RCA and complex PCI to proximal left circumflex artery as outpatient. * [facility] 03/19: SAM to proxicmal LCx, mid SVG to RCA and prox SVG to RCA. * Echo with an EF of 55% * Troponins peaked at 598. * Continue ASA, carvedilol, clopidogrel, atorvastatin, isosorbide, lisinopril. Left lower lobe pneumonia * Pneumococcal with positive urinary antigen * on CTX. Chronic conditions: * COMPA BiPAP at night. * afib: on apixaban. DVT: not indicated as already on apixaban. Disposition: to SNF, pending insurance authorization. Pt medically ready on 03/20/2023. . Charges/Coding Visit Charges Inpatient E&M: 11280 Subs Hosp L2
--- NOTE | 2023-03-21 09:04 | CASEMGMT ---
[facility]ILTON sent updates to [facility]. Plan: D/c to [facility] pending insurance approval. Lilian SERNA
[2023-03-21] MEDS: Petrolatum 33% Tube 1 APPLIC TOPICAL (10:15)
[2023-03-21] MEDS: Miconazole Nitrate 43 GM Bottle 1 APPLIC TOPICAL (10:15)
[2023-03-21] MEDS: Ceftriaxone 2 GM in 0.9% Normal Saline (50mL MB+) 50 ML IV (10:16)
[2023-03-21] MEDS: Magnesium Chloride 64 MG Delay Rel.Tablet 128 MG PO (10:20)
[2023-03-21] MEDS: Spironolactone 50 MG Tablet PO (10:21)
[2023-03-21] MEDS: Clopidogrel Bisulfate 75 MG Tablet PO (10:21)
[2023-03-21] MEDS: Furosemide 40 MG Tablet PO (10:21)
[2023-03-21] MEDS: Isosorbide Mononitrate 30 MG Tablet PO (10:21)
[2023-03-21] MEDS: Lisinopril 10 MG Tablet PO (10:21)
[2023-03-21] MEDS: Carvedilol 6.25 MG Tablet PO (10:21)
[2023-03-21] MEDS: guaiFENesin/D-Methorphan TAB.SR.12H 2 TABLET PO (10:21)
[2023-03-21] MEDS: Senna/Docusate Sodium 1 Tablet 2 TABLET PO (10:21)
[2023-03-21] MEDS: APIXABAN 5 MG TABLET PO (10:22)
--- NOTE | 2023-03-21 14:19 | DS.PCM_ITS ---
Providers Date of Admission: 03/10/23 Primary Care Physician: Tanisha [facility] Phys Consultations 03/10/23 14:36 Consult: Cardiology Routine Consulting Provider: Jose Alberto Clark Reason for Consult: NSTEMI EMERGENT Consult: No MD Notified: Yes Date Notified: 03/10/23 Time Notified: 14:17 Method of Notification: ED Physician Initiated Reason For Visit: NSTEMI Diagnosis Discharge Diagnosis (1) Non-STEMI (non-ST elevated myocardial infarction): Status: Acute Code(s): I21.4 - Non-ST elevation (NSTEMI) myocardial infarction Plan Non-STEMI * CAD status post CABG, chronic HFpEF present on admission * Left heart cath 03/12 which shows patent GOULD to LAD, SVG to right PDA with 80% stenosis in the mid part and 70% in the mid to distal. High-grade stenosis of right PDA after touchdown. Heavily calcified proximal left circumflex artery stenosis. Imdur was added on the top of Coreg. Continue lisinopril and high intensity statin. Eliquis started. Lasix 40 mg daily was started. Medical therapy and will need staged PCI to SVG to RCA and complex PCI to proximal left circumflex artery as outpatient. * [facility] 03/19: SAM to proxicmal LCx, mid SVG to RCA and prox SVG to RCA. * Echo with an EF of 55% * Troponins peaked at 598. * Continue ASA, carvedilol, clopidogrel, atorvastatin, isosorbide, lisinopril. Left lower lobe pneumonia * Pneumococcal with positive urinary antigen * on CTX. Chronic conditions: * COMPA BiPAP at night. * afib: on apixaban. DVT: not indicated as already on apixaban. Disposition: to SNF, pending insurance authorization. Pt medically ready on 03/20/2023. . Medications at Discharge Home Medications amoxicillin 875 mg-potassium clavulanate 125 mg tablet 1 tab PO BID #6 tabs apixaban 5 mg tablet (Eliquis) 5 mg PO BID #0 tabs 03/20/23 atorvastatin 40 mg tablet 40 mg PO QHS #0 tabs 03/20/23 carvedilol 6.25 mg tablet 6.25 mg PO BID #0 tabs 03/20/23 clopidogrel 75 mg tablet 75 mg PO DAILY #0 tabs 03/20/23 furosemide 40 mg tablet 40 mg PO DAILY #0 tabs 03/20/23 isosorbide mononitrate 30 mg tablet,extended release 24 hr 30 mg PO DAILY #0 tabs 03/20/23 lisinopril 10 mg tablet 10 mg PO DAILY #0 tabs 03/20/23 spironolactone 50 mg tablet 50 mg PO DAILY #0 tabs 03/20/23 Hospital Course Procedures 2-D Echocardiogram and Cardiac catheterization Summary of Care Provided Minutes Spent on Discharge: 32 Weight / BMI Weight Weight: 117.9 kg Body Mass Index (BMI) 34.2 ABG / Lab / Microbiology Data 03/20/23 07:18 03/20/23 07:18 Microbiology: Microbiology 03/17/23 09:18 Urine, Clean Catch Legionella Antigen - Final 03/17/23 09:18 Urine, Clean Catch Streptococcus pneumoniae Antigen (M - Final Streptococcus pneumonia Ag 03/17/23 01:35 Mucosa - Nasopharyngeal RSV RNA Qualitative (PCR) - Final 03/17/23 02:35 Nasal Secretion SARS-CoV-2 & FLU Antigen (Rapid) - Final 03/10/23 11:39 Nasal Secretion SARS-CoV-2 & FLU Antigen (Rapid) - Final D/C Instructions Discharge Diet: Low fat / Low cholesterol Meaningful Use Info Meaningful Use Diagnoses (Choose all that apply): AMI AMI/Post PCI/Angioplasty Aspirin given w/in 24hrs of arrival?: Yes ASA at discharge?: Yes Antiplatelet Therapy at Discharge:: Yes Statins at discharge?: Yes Jad/ARB at discharge?: Yes Beta Aroldo at discharge?: Yes Done w/ Acute MS measure.: Yes Documented LVEF (%): 55 Discharge Plan Admission Admit Date/Time: 03/10/23 14:16 Primary Reason for Your Visit: NSTEMI Attending Provider: Neo Torres Primary Care Provider: Care Physician,No Primary Consulting Providers: Jose Alberto Clark; Jak Bruce; Samuel Estevez Discharge Orders/Prescriptions Prescriptions: New furosemide 40 mg Tablet 40 mg PO DAILY Qty: 0 0RF atorvastatin 40 mg Tablet 40 mg PO QHS Qty: 0 0RF carvedilol 6.25 mg Tablet 6.25 mg PO BID Qty: 0 0RF isosorbide mononitrate 30 mg Tablet Extended Release 24 Hr 30 mg PO DAILY Qty: 0 0RF clopidogrel 75 mg Tablet 75 mg PO DAILY Qty: 0 0RF lisinopril 10 mg Tablet 10 mg PO DAILY Qty: 0 0RF spironolactone 50 mg Tablet 50 mg PO DAILY Qty: 0 0RF Eliquis 5 mg Tablet 5 mg PO BID Qty: 0 0RF amoxicillin-pot clavulanate 875-125 mg tablet 1 tab PO BID Qty: 6 0RF Referrals / Follow Up: Rosales Adair MD [Med Staff - Active Staff] - 04/29/23 9:30 am Care Physician,No Primary [Primary Care Provider] - Disposition Disposition (needs filled in before D/C Order can be placed): [facility] Charges/Coding Visit Charges Inpatient E&M: 22605 Disch Hosp >30min
--- NOTE | 2023-03-21 14:19 | CASEMGMT ---
Patient was approved for [facility]. SW completed a 7000 in [facility]. Physicians will transport patient via wheelchair. Plan: d/c to [facility] under skilled level of care on a convalescent stay. Physicians will transport patient. Lilian SERNA
--- NOTE | 2023-03-21 14:44 | PHA.DC.MR.R ---
Pharmacy [place] Med Reconciliation Pharmacy Service has performed discharge medication reconciliation for this patient. The patient's discharge medication list was reviewed for discrepancies and discrepancies were resolved. Medications at Discharge Home Medications amoxicillin 875 mg-potassium clavulanate 125 mg tablet 1 tab PO BID #6 tabs 03/20/23 apixaban 5 mg tablet (Eliquis) 5 mg PO BID #0 tabs 03/20/23 atorvastatin 40 mg tablet 40 mg PO QHS #0 tabs 03/20/23 carvedilol 6.25 mg tablet 6.25 mg PO BID #0 tabs 03/20/23 clopidogrel 75 mg tablet 75 mg PO DAILY #0 tabs 03/20/23 furosemide 40 mg tablet 40 mg PO DAILY #0 tabs 03/20/23 isosorbide mononitrate 30 mg tablet,extended release 24 hr 30 mg PO DAILY #0 tabs 03/20/23 lisinopril 10 mg tablet 10 mg PO DAILY #0 tabs 03/20/23 spironolactone 50 mg tablet 50 mg PO DAILY #0 tabs 03/20/23
--- NOTE | 2023-03-21 14:54 | NURSING ---
This RN called and gave report to LOLITA Graf at [facility].
--- NOTE | 2023-03-21 15:14 | CASEMGMT ---
Discharge Planning Discharge orders, signed med list, covid results, and transport time sent to [facility] via [facility]. [facility] will transport patient by wheelchair at 5p. Nursing, SW, patient, and his son updated. Ivonne Potter, Discharge Planning Asst.
== END 2023-03-21 18:00 | disposition skilled nursing facility (03) | DRG 321 ==
LOC: ED 13:08 → PCU 15:28
PROVIDERS: Internal Medicine; Internal Medicine Cardiovascular Disease; Internal Medicine Interventional Cardiology; Physician Assistant Medical; Admitting Provider Family Medicine; Emergency Provider Emergency Medicine
DX: I21.4 Non-ST elevation (NSTEMI) myocardial infarction (principal); J13 Pneumonia due to Streptococcus pneumoniae; I50.32 Chronic diastolic (congestive) heart failure; D69.6 Thrombocytopenia, unspecified; I11.0 Hypertensive heart disease with heart failure; I48.0 Paroxysmal atrial fibrillation; I25.708 Atherosclerosis of coronary artery bypass graft(s), unspecified, with other forms of angina pectoris; F17.210 Nicotine dependence, cigarettes, uncomplicated; G47.33 Obstructive sleep apnea (adult) (pediatric); E87.6 Hypokalemia; I49.3 Ventricular premature depolarization; R09.02 Hypoxemia; Z79.02 Long term (current) use of antithrombotics/antiplatelets; Z79.82 Long term (current) use of aspirin; Z95.1 Presence of aortocoronary bypass graft
CPT/HCPCS: 36415; 36600; 71045; 71046; 80048; 80053; 82803; 83735; 83880; 84100; 84132; 84484; 85025; 85027; 85347; 85610; 85730; 87426; 87428; 87449; 87634; 92928; 92937; 93005; 93306; 93455; 94002; 94003; 94640; 94668; 94762; 97110; 97116; 97162; 97166; 97530; 97535; 97802; 99152; 99153; 99252; 99285; C1760; C1894; J7030; J7040; J7050; Q9957; Q9967; A4216; C1725; C1769; C1874; C1887; C8929; C9600; C9604; G0463; J0153; J1940